=== PATIENT | male | born 1945 | race Caucasian/White ===

== ENCOUNTER 2024-01-16 21:26 | Inpatient (IN) | payer OTHER, MEDICARE ==
[2024-01-16] MEDS: HEPARIN SOD,PORK IN 0.45% NACL 25,000 UNIT in 0.45% NACL 1 250ML.BAG IV SCH (21:53)
--- NOTE | 2024-01-16 21:54 | ED ---
General Adult HPI - General Stated complaint: NSTEMI Time Seen by Provider: 01/16/24 21:31 Source: patient (21), EMS, RN notes reviewed, old records reviewed Mode of arrival: EMS - History of Present Illness Initial comments: Patient is a 78-year-old male who presents emergency department as a transfer from [facility]. Patient has a past medical history remarkable for pulmonary embolism, chronic degenerative disc disease with multiple spinal surgeries in his back, chronic pain. Scented to [facility] earlier this afternoon with difficult sounding chest pain. Radiated from the central and left side of his chest towards his jaw and left arm. Patient denied any naus ea or vomiting or diaphoresis at time of severe chest pain earlier today. Patient has been off of his blood thinning medication, Eliquis for 1 day as patient is due to have spine surgery on Thursday. States that pain started slowly and then got worse. Was concerned he was having a heart attack and presents for further evaluation. At the outside facility remarkable for NSTEMI with normal EKG and appearance as well as elevated troponin. Pain was controlled with nitroglycerin at the outside facility. He was started on a heparin drip and given aspirin 324 mg. Patient was transferred here for cardiology evaluation. Currently states he has minimal chest pain if any other 1 out of 10. He admi nistered an additional nitroglycerin tablet. Heparin will be continued. We will repeat labs and EKG. He was in agreement this plan.CT imaging obtained at the outside facility for PE was also negative. - Related Data Allergies Allergy/AdvReac Type Severity Reaction Status Date / Time morphine Allergy Unknown Verified 01/16/24 21:44 Review of Systems ROS Statement: Those systems with pertinent positive or pertinent negative responses have been documented in the HPI. Review of Systems: CONST: Denies fever EYES: Denies blurry vision ENT: Denies nasal congestion C/V: Endorses minimal chest pain at this time. RESP: Denies shortness of breath GI: Denies abdominal pain : Denies dysuria SKIN: Denies rash. MSK: Denies joint pain. NEURO: Denies headache ROS Other: All systems not noted in ROS Statement are negative. Past Medical History Past Medical History: Chest Pain / Angina, Heart Failure, Osteoarthritis (OA) History of Any Multi-Drug Resistant Organisms: None Reported Past Surgical History: Joint Replacement, Orthopedic Surgery Past Psychological History: No Psychological Hx Reported Smoking Status: Former smoker Past Alcohol Use History: None Reported Past Drug Use History: None Reported General Exam - General Exam Comments Initial Comments: General: Appears in no acute distress. HEAD: Normal with no signs of head trauma. EYES: PERRLA, EOMI, conjunctiva normal, no discharge. ENT: Hearing grossly intact, normal oropharynx. RESPIRATORY: Clear breath sounds bilaterally. No wheezes, rales, or rhonchi. C/V: Regular rate and rhythm. S1 and S2 auscultated, no edema, peripheral pulses 2+ and intact throughout ABD: Abd is soft, nontender, nondistended EXT: Normal range of motion, no obvious deformity.Enlarged hand joints with suspected history of rheumatoid arthritis for which she is receiving workup in the outpatient setting. This is chronic for the patient. SKIN: No rashes or lesions observed on exposed skin. NEURO: Alert and oriented x 4. Cranial nerves II-XII intact. No focal sensory or strength deficits. Course Vital Signs 01/16/24 01/16/24 21:35 21:50 Temperature 97.7 F Pulse Rate 64 63 Respiratory 18 18 Rate Blood Pressure 156/106 147/95 O2 Sat by Pulse 100 99 Oximetry Medical Decision Making - Medical Decision Making Was pt. sent in by a medical professional or institution (, PA, COLOR ARTIST, urgent care, hospital, or [facility]cc...) When possible be specific @ -Patient transferred from [place] for evaluation by cardiology for NSTEMI Did you speak to anyone other than the patient for history (EMS, parent, family, police, friend...)? What history was obtained from this source @ -No Did you review nursing and triage notes (agree or disagree)? Why? @ -I reviewed and agree with nursing and triage notes Were old charts reviewed (outside hosp., previous admission, EMS record, old EKG , old radiological studies, urgent care reports/EKG's, mcc records)? Report findings @ -Old charts reviewed Differential Diagnosis (chest pain, altered mental status, abdominal pain women, abdominal pain men, vaginal bleeding, weakness, fever, dyspnea, syncope, headache, dizziness, GI bleed, back pain, seizure, CVA, palpatations, mental health, musculoskeletal)? @ -Differential Chest Pain: Stable Angina, Unstable Angina, STEMI, NSTEMI Aortic Dissection, Pneumothorax, Musculoskeletal, Esophageal Spasm GERD, Cholecystitis, Pancreatitis, Zoster, this is not meant to be an all-inclusive list. EKG interpreted by me (3pts min.). @ -As above X-rays interpreted by me (1pt min.). @ -None done CT interpreted by me (1pt min.). @ -None done U/S interpreted by me (1pt. min.). @ -None done What testing was considered but not performed or refused? (CT, X-rays, U/S, labs)? Why? @ -None What meds were considered but not given or refused? Why? @ -None Did you discuss the management of the patient with other professionals (professionals i.e. Dr., PA, COLOR ARTIST, lab, RT, psych nurse, mental health social worker, wallpaper printer helper, teacher, tactical debriefer officer, telephonic case manager)? Give summary @ - I spoke with Dr. Hickman of [facility] who accepted the admission. Was smoking cessation discussed for >3mins.? @ -No Was critical care preformed (if so, how long)? @ -Yes, 35 minutes. Were there social determinants of health that impacted care today? How? (Homelessness, low income, unemployed, alcoholism, drug addiction, transportation, low edu. Level, literacy, decrease access to med. care, fpc, rehab)? @ -No Was there de-escalation of care discussed even if they declined (Discuss DNR or withdrawal of care, Hospice)? DNR status @ -No What co-morbidities impacted this encounter? (DM, HTN, Smoking, COPD, CAD, Cancer, CVA, ARF, Chemo, Hep., AIDS, mental health diagnosis, sleep apnea, morbid obesity)? @ -Hypertension, history of PE currently holding anticoagulation Was patient admitted / discharged? Hospital course, mention meds given and route, prescriptions, significant lab abnormalities, going to OR and other pertinent info. @ -Based on the patient's presentation and physical exam, presents with typical sounding chest pain earlier today and was transferred from [facility] after being diagnosed with a NSTEMI. Pain has more or less resolved at this time with it being currently 1 out of 10 upon arrival to our ER. States it was completely gone prior to arrival. Patient will be administered a nitroglycerin tablet and we will continue with heparin drip. He already received 324 mg of aspirin. Will repeat laboratory studies at this time as well. CT imaging done at the outside facility negative for any evidence of PE. Laboratory studies reviewed from outside facility unremarkable for elevated troponin. Patient was in agreement this plan. EKG done here negative for any obvious acute ischemic process.CT imaging and imaging uploaded from outside hospital. Patient's laboratory studies remarkable for mild anemia with a hemoglobin of 1.8. Patient's troponin is 0.31. Unknown which assay values at [place]. Will continue to trend the troponins while he is here. On reevaluation, patient remains pain-free. Nitropaste applied. Continuing heparin drip at this time. Vital signs within acceptable limits. Patient will be admitted at this time for a NSTEMI. He and his family were in agreement this plan. I confirmed patient's home medications as pharmacy is left and then for the patient. He was in agreement this plan. Cardiology consulted. I spoke with Dr. Hickman of [facility] who accepted the admission. Undiagnosed new problem with uncertain prognosis? @ -No Drug Therapy requiring intensive monitoring for toxicity (Heparin, Nitro, In sulin, Cardizem)? @ -Heparin Were any procedures done? @ -No Diagnosis/symptom? @ -NSTEMI Acute, or Chronic, or Acute on Chronic? @ -Acute Uncomplicated (without systemic symptoms) or Complicated (systemic symptoms)? @ -Complicated Side effects of treatment? @ -No Exacerbation, Progression, or Severe Exacerbation? @ -No Poses a threat to life or bodily function? How? (Chest pain, [place], [place], pneumonia, PE, COPD, DKA, ARF, appy, cholecystitis, CVA, Diverticulitis, Homicidal, Suicidal, threat to staff... and all critical care pts) @ -Yes - Lab Data Result diagrams: 01/16/24 21:45 01/16/24 21:45 Lab Results 01/16/24 01/16/24 01/16/24 Range/Units 21:45 21:45 21:45 WBC 4.7 (3.8-10.6) k/uL RBC 3.77 L (4.30-5.90) m/uL Hgb 11.8 L (13.0-17.5) gm/dL Hct 37.1 L (39.0-53.0) % MCV 98.5 (80.0-100.0) fL MCH 31.3 (25.0-35.0) pg MCHC 31.8 (31.0-37.0) g/dL RDW 15.4 (11.5-15.5) % Plt Count 214 (150-450) k/uL MPV 7.3 Neutrophils % 39 % Lymphocytes % 43 % Monocytes % 10 % Eosinophils % 4 % Basophils % 1 % Neutrophils # 1.8 (1.3-7.7) k/uL Lymphocytes # 2.0 (1.0-4.8) k/uL Monocytes # 0.5 (0-1.0) k/uL Eosinophils # 0.2 (0-0.7) k/uL Basophils # 0.0 (0-0.2) k/uL Macrocytosis Slight PT 10.6 (10.0-12.5) sec INR 1.0 (<1.2) APTT 61.8 H (22.0-30.0) sec Sodium 139 (137-145) mmol/L Potassium 4.5 (3.5-5.1) mmol/L Chloride 108 H (98-107) mmol/L Carbon Dioxide 26 (22-30) mmol/L Anion Gap 5 mmol/L BUN 15 (9-20) mg/dL Creatinine 0.66 (0.66-1.25) mg/dL Est GFR (CKD-EPI)AfAm >90 (>60 ml/min/1.73 sqM) Est GFR (CKD-EPI)NonAf >90 (>60 ml/min/1.73 sqM) Glucose 107 H (74-99) mg/dL Calcium 9.0 (8.4-10.2) mg/dL Magnesium 2.1 (1.6-2.3) mg/dL Total Bilirubin 0.2 (0.2-1.3) mg/dL AST 28 (17-59) U/L ALT 15 (4-49) U/L Alkaline Phosphatase 137 H (38-126) U/L Troponin I (0.000-0.034) ng/mL Total Protein 6.1 L (6.3-8.2) g/dL Albumin 3.5 (3.5-5.0) g/dL 01/16/24 Range/Units 21:45 WBC (3.8-10.6) k/uL RBC (4.30-5.90) m/uL Hgb (13.0-17.5) gm/dL Hct (39.0-53.0) % MCV (80.0-100.0) fL MCH (25.0-35.0) pg MCHC (31.0-37.0) g/dL RDW (11.5-15.5) % Plt Count (150-450) k/uL MPV Neutrophils % % Lymphocytes % % Monocytes % % Eosinophils % % Basophils % % Neutrophils # (1.3-7.7) k/uL Lymphocytes # (1.0-4.8) k/uL Monocytes # (0-1.0) k/uL Eosinophils # (0-0.7) k/uL Basophils # (0-0.2) k/uL Macrocytosis PT (10.0-12.5) sec INR (<1.2) APTT (22.0-30.0) sec Sodium (137-145) mmol/L Potassium (3.5-5.1) mmol/L Chloride (98-107) mmol/L Carbon Dioxide (22-30) mmol/L Anion Gap mmol/L BUN (9-20) mg/dL Creatinine (0.66-1.25) mg/dL Est GFR (CKD-EPI)AfAm (>60 ml/min/1.73 sqM) Est GFR (CKD-EPI)NonAf (>60 ml/min/1.73 sqM) Glucose (74-99) mg/dL Calcium (8.4-10.2) mg/dL Magnesium (1.6-2.3) mg/dL Total Bilirubin (0.2-1.3) mg/dL AST (17-59) U/L ALT (4-49) U/L Alkaline Phosphatase (38-126) U/L Troponin I 0.310 H* (0.000-0.034) ng/mL Total Protein (6.3-8.2) g/dL Albumin (3.5-5.0) g/dL - EKG Data -: EKG Interpreted by Me EKG Comments: 12-lead Electrocardiogram Interpretation Note EKG was reviewed and interpreted by myself. 12-lead ECG performed at 2130 is interpreted by me as revealing normal sinus rhythm with first-degree AV block and incomplete right bundle branch block at a rate of 62 beats per minute. Oneill is normal. SD interval is 228 ms, QRS duration is 110 ms, QTc is 445 ms.. There were no obvious acute ST or T wave abnormalities to suggest myocardial ischemia or injury. R wave progression across the precordium was satisfactory. By my interpretation this EKG is non-diagnostic for acute ischemia. Disposition Clinical Impression: Acute non-ST elevation myocardial infarction (NSTEMI) Disposition: ADMITTED IP TO THIS HOSP Condition: Serious Time of Disposition: 23:05
[2024-01-16] MEDS: NITROGLYCERIN SL TABS 0.4 MG TAB SUBLINGUAL STA (21:55)
[2024-01-16 22:01] LABS: Basophils % (A) 1 %; Eosinophils # (A) 0.2 k/uL (0-0.7); Eosinophils % (A) 4 %; HCT 37.1 % (39.0-53.0); HGB 11.8 gm/dL (13.0-17.5); Lymphocytes % (A) 43 %; MCH 31.3 pg (25.0-35.0); MCHC 31.8 g/dL (31.0-37.0); MCV 98.5 fL (80.0-100.0); Macrocytosis Slight; Mean Platelet Volume 7.3; Monocytes # (A) 0.5 k/uL (0-1.0); Monocytes % (A) 10 %; Neutrophils # (A) 1.8 k/uL (1.3-7.7); Neutrophils % (A) 39 %; Platelet Count 214 k/uL (150-450); RBC 3.77 m/uL (4.30-5.90); RDW 15.4 % (11.5-15.5); WBC 4.7 k/uL (3.8-10.6)
[2024-01-16 22:23] LABS: Prothrombin Time 10.6 sec (10.0-12.5)
[2024-01-16 22:25] LABS: ALT 15 U/L (4-49); AST 28 U/L (17-59); African American GFR (CKD) >90 (>60 ml/min/1.73 sqM); Albumin 3.5 g/dL (3.5-5.0); Alkaline Phosphatase 137 U/L (38-126); Anion Gap 5 mmol/L; Blood Urea Nitrogen 15 mg/dL (9-20); Carbon Dioxide 26 mmol/L (22-30); Chloride 108 mmol/L (98-107); Glucose 107 mg/dL (74-99); Magnesium 2.1 mg/dL (1.6-2.3); Non-African American GFR(CKD) >90 (>60 ml/min/1.73 sqM); Potassium 4.5 mmol/L (3.5-5.1); Sodium 139 mmol/L (137-145); Total Bilirubin 0.2 mg/dL (0.2-1.3); Total Protein 6.1 g/dL (6.3-8.2)
[2024-01-16 22:30] LABS: Partial Thromboplastin Time 61.8 sec (22.0-30.0)
[2024-01-16] MEDS: HYDROcodone/APAP 10-325MG 1 EACH TAB PO ONE (22:31)
[2024-01-16] MEDS ORDERED: ONDANSETRON 4 MG/2 ML VIAL IVP PRN (23:15)
[2024-01-16] MEDS ORDERED: NALOXONE 0.4 MG/ML 1 ML VIAL IV PRN (23:15)
[2024-01-16] MEDS: NITROGLYCERIN OINT 1 INCH/GM PACKET TOPICAL SCH (23:29)
[2024-01-16] MEDS: ATORVASTATIN 20 MG TAB PO SCH (23:30)
--- NOTE | 2024-01-16 23:58 | ED ---
Medical Decision Making - Lab Data Result diagrams: 01/16/24 21:45 01/16/24 21:45 Lab Results 01/16/24 01/16/24 01/16/24 Range/Units 21:45 21:45 21:45 WBC 4.7 (3.8-10.6) k/uL RBC 3.77 L (4.30-5.90) m/uL Hgb 11.8 L (13.0-17.5) gm/dL Hct 37.1 L (39.0-53.0) % MCV 98.5 (80.0-100.0) fL MCH 31.3 (25.0-35.0) pg MCHC 31.8 (31.0-37.0) g/dL RDW 15.4 (11.5-15.5) % Plt Count 214 (150-450) k/uL MPV 7.3 Neutrophils % 39 % Lymphocytes % 43 % Monocytes % 10 % Eosinophils % 4 % Basophils % 1 % Neutrophils # 1.8 (1.3-7.7) k/uL Lymphocytes # 2.0 (1.0-4.8) k/uL Monocytes # 0.5 (0-1.0) k/uL Eosinophils # 0.2 (0-0.7) k/uL Basophils # 0.0 (0-0.2) k/uL Macrocytosis Slight PT 10.6 (10.0-12.5) sec INR 1.0 (<1.2) APTT 61.8 H (22.0-30.0) sec Sodium 139 (137-145) mmol/L Potassium 4.5 (3.5-5.1) mmol/L Chloride 108 H (98-107) mmol/L Carbon Dioxide 26 (22-30) mmol/L Anion Gap 5 mmol/L BUN 15 (9-20) mg/dL Creatinine 0.66 (0.66-1.25) mg/dL Est GFR (CKD-EPI)AfAm >90 (>60 ml/min/1.73 sqM) Est GFR (CKD-EPI)NonAf >90 (>60 ml/min/1.73 sqM) Glucose 107 H (74-99) mg/dL Calcium 9.0 (8.4-10.2) mg/dL Magnesium 2.1 (1.6-2.3) mg/dL Total Bilirubin 0.2 (0.2-1.3) mg/dL AST 28 (17-59) U/L ALT 15 (4-49) U/L Alkaline Phosphatase 137 H (38-126) U/L Troponin I (0.000-0.034) ng/mL Total Protein 6.1 L (6.3-8.2) g/dL Albumin 3.5 (3.5-5.0) g/dL 01/16/24 Range/Units 21:45 WBC (3.8-10.6) k/uL RBC (4.30-5.90) m/uL Hgb (13.0-17.5) gm/dL Hct (39.0-53.0) % MCV (80.0-100.0) fL MCH (25.0-35.0) pg MCHC (31.0-37.0) g/dL RDW (11.5-15.5) % Plt Count (150-450) k/uL MPV Neutrophils % % Lymphocytes % % Monocytes % % Eosinophils % % Basophils % % Neutrophils # (1.3-7.7) k/uL Lymphocytes # (1.0-4.8) k/uL Monocytes # (0-1.0) k/uL Eosinophils # (0-0.7) k/uL Basophils # (0-0.2) k/uL Macrocytosis PT (10.0-12.5) sec INR (<1.2) APTT (22.0-30.0) sec Sodium (137-145) mmol/L Potassium (3.5-5.1) mmol/L Chloride (98-107) mmol/L Carbon Dioxide (22-30) mmol/L Anion Gap mmol/L BUN (9-20) mg/dL Creatinine (0.66-1.25) mg/dL Est GFR (CKD-EPI)AfAm (>60 ml/min/1.73 sqM) Est GFR (CKD-EPI)NonAf (>60 ml/min/1.73 sqM) Glucose (74-99) mg/dL Calcium (8.4-10.2) mg/dL Magnesium (1.6-2.3) mg/dL Total Bilirubin (0.2-1.3) mg/dL AST (17-59) U/L ALT (4-49) U/L Alkaline Phosphatase (38-126) U/L Troponin I 0.310 H* (0.000-0.034) ng/mL Total Protein (6.3-8.2) g/dL Albumin (3.5-5.0) g/dL Critical Care Time Critical Care Time: Yes Total Critical Care Time: 35 Disposition Clinical Impression: Acute non-ST elevation myocardial infarction (NSTEMI) Disposition: ADMITTED IP TO THIS HOSP Condition: Serious
[2024-01-17] MEDS: AMITRIPTYLINE HCL 25 MG TAB PO SCH ×2 (01:09→11:25)
[2024-01-17 03:32] LABS: Basophils % (A) 1 %; Eosinophils # (A) 0.2 k/uL (0-0.7); Eosinophils % (A) 4 %; HCT 37.4 % (39.0-53.0); HGB 11.8 gm/dL (13.0-17.5); Hypochromasia Slight; Lymphocytes # (A) 1.8 k/uL (1.0-4.8); Lymphocytes % (A) 39 %; MCH 31.3 pg (25.0-35.0); MCHC 31.6 g/dL (31.0-37.0); MCV 98.9 fL (80.0-100.0); Macrocytosis Slight; Mean Platelet Volume 7.9; Monocytes # (A) 0.5 k/uL (0-1.0); Monocytes % (A) 10 %; Neutrophils # (A) 2.1 k/uL (1.3-7.7); Neutrophils % (A) 43 %; Platelet Count 200 k/uL (150-450); RBC 3.78 m/uL (4.30-5.90); RDW 15.5 % (11.5-15.5); WBC 4.8 k/uL (3.8-10.6)
[2024-01-17 03:43] LABS: Prothrombin Time 10.5 sec (10.0-12.5)
[2024-01-17 03:53] LABS: ALT 15 U/L (4-49); AST 24 U/L (17-59); African American GFR (CKD) >90 (>60 ml/min/1.73 sqM); Albumin 3.6 g/dL (3.5-5.0); Alkaline Phosphatase 120 U/L (38-126); Anion Gap 7 mmol/L; Blood Urea Nitrogen 13 mg/dL (9-20); Calcium 8.9 mg/dL (8.4-10.2); Carbon Dioxide 25 mmol/L (22-30); Chloride 107 mmol/L (98-107); Glucose 103 mg/dL (74-99); Non-African American GFR(CKD) >90 (>60 ml/min/1.73 sqM); Potassium 4.4 mmol/L (3.5-5.1); Sodium 139 mmol/L (137-145); Total Bilirubin 0.3 mg/dL (0.2-1.3); Total Protein 6.1 g/dL (6.3-8.2)
--- NOTE | 2024-01-17 03:55 | P.HPIM ---
History of Present Illness H&P Date: 01/16/24 Chief Complaint: chest pain 78-year-old male with chronic low back pain history of PE Patient was transferred to our facility from [facility] where he presented complaining of left-sided chest pain he reports that he was at his baseline status of health resting breathing woke with scaly he had an episode of chest pain squeezing/pressure in nature 8 out of 10 in severity which he adds that he had 1 earlier lasted only 10 to 15 minutes however this time this 1 lasted for over an hour was associated with pain radiating to his left arm and left jaw making him feeling nauseated and short of breath with palpitations denies any vomiting denies any dizziness or lightheadedness denies any cardiac history for which she decided to go to the hospital for evaluation by 2 improved chest pain however he was told that he needs to go to be transferred to a different hospital for cardiology evaluation. Patient denies any injuries trauma or falls. Denies any coughing or upper respiratory infection symptoms. Patient denies any smoking illicit drugs or heavy alcohol Patient does have history of PE and supposed to be on Eliquis however he stopped it a day or 2 ago for anticipated low back procedure for the nerve block Patient denies any recent travel or hospital stay denies any unusual activity recently. He denies any falls at home review of systems Pertinent positives as noted in HPI. All other systems were reviewed and are negative on exam Constitutional: No acute distress, conversant, pleasant Eyes: Anicteric sclerae, moist conjunctiva, Pupils equal round reactive to light ENMT: NC/AT Oropharynx clear, no erythema, or exudates Neck: Supple, no masses, or JVD No carotid bruits No thyromegaly Lungs: Clear to auscultation Clear to percussion Normal respiratory effort, no accessory muscle use Cardiovascular: Heart regular in rate and rhythm, No murmurs, gallops, or rubs No peripheral edema Abdominal: Soft Nontender, no guarding, rebound or rigidity Abdomen moving with respiration Normoactive bowel sounds Extremities: No digital cyanosis No clubbing Pedal pulses intact and symmetrical Radial pulses intact and symmetrical No calf tenderness Psychiatric: Alert and oriented to person, place and time Appropriate affect fair judgement Neuro Muscles Strength 5/5 in all 4 extremities Sensation to light touch grossly present throughout Cranial nerves II-XII grossly intact Past Medical History Past Medical History: Chest Pain / Angina, Heart Failure, Osteoarthritis (OA) History of Any Multi-Drug Resistant Organisms: None Reported Past Surgical History: Joint Replacement, Orthopedic Surgery Past Psychological History: No Psychological Hx Reported Smoking Status: Former smoker Past Alcohol Use History: None Reported Past Drug Use History: None Reported Medications and Allergies Allergies Allergy/AdvReac Type Severity Reaction Status Date / Time morphine Allergy Unknown Verified 01/16/24 21:44 Physical Exam Vitals: Vital Signs Temp Pulse Resp BP Pulse Ox 01/17/24 02:00 74 18 127/84 95 01/16/24 23:00 64 18 121/77 97 01/16/24 22:30 70 18 113/88 95 01/16/24 21:50 63 18 147/95 99 01/16/24 21:35 97.7 F 64 18 156/106 100 Intake and Output 01/16/24 01/16/24 01/17/24 14:59 22:59 06:59 Other: Weight 83.915 kg Results CBC & Chem 7: 01/17/24 03:18 01/16/24 21:45 Labs: Abnormal Lab Results - Last 24 Hours (Table) 01/16/24 01/16/24 01/16/24 Range/Units 21:45 21:45 21:45 RBC 3.77 L (4.30-5.90) m/uL Hgb 11.8 L (13.0-17.5) gm/dL Hct 37.1 L (39.0-53.0) % APTT 61.8 H (22.0-30.0) sec Chloride 108 H (98-107) mmol/L Glucose 107 H (74-99) mg/dL Alkaline Phosphatase 137 H (38-126) U/L Troponin I (0.000-0.034) ng/mL Total Protein 6.1 L (6.3-8.2) g/dL 01/16/24 01/17/24 01/17/24 Range/Units 21:45 00:55 03:18 RBC (4.30-5.90) m/uL Hgb (13.0-17.5) gm/dL Hct (39.0-53.0) % APTT 48.0 H (22.0-30.0) sec Chloride (98-107) mmol/L Glucose (74-99) mg/dL Alkaline Phosphatase (38-126) U/L Troponin I 0.310 H* 0.440 H* (0.000-0.034) ng/mL Total Protein (6.3-8.2) g/dL 01/17/24 Range/Units 03:18 RBC 3.78 L (4.30-5.90) m/uL Hgb 11.8 L (13.0-17.5) gm/dL Hct 37.4 L (39.0-53.0) % APTT (22.0-30.0) sec Chloride (98-107) mmol/L Glucose (74-99) mg/dL Alkaline Phosphatase (38-126) U/L Troponin I (0.000-0.034) ng/mL Total Protein (6.3-8.2) g/dL Assessment and Plan Assessment: 78-year-old male with chronic low back pain coming in complaining of palpitations and left-sided chest pain he was found to have elevated troponins for which she was transferred to our facility for further cardiology evaluation discussed case with ED doctor and accepted the admission for NSTEMI to rule out acute coronary syndrome with anticipated length of stay more than 2 midnights NSTEMI rule out acute coronary syndrome Continue with aspirin daily Continue statin daily Cardiac monitoring Cardiology eval requested Morphine as needed for pain control Supplemental oxygen Nitro as needed Elevated troponin 0.3, continue to trend Chronic condition history of venous thromboembolism Currently Eliquis on hold for anticipated nerve procedure on Thursday Blood work overall unremarkable white count 4.7 hemoglobin 11.8 sodium 139 potassium 4.5 BUN 15 creatinine 0.6 Troponin 0.3 Verify home meds Full code DVT prophylaxis on heparin drip for NSTEMI
[2024-01-17] MEDS: HYDROcodone/APAP 10-325MG 1 EACH TAB PO PRN (05:56)
--- NOTE | 2024-01-17 09:34 | P.CRDCN ---
History of Present Illness Consult date: 01/17/24 Chief complaint: Chest pain History of present illness: The patient is a pleasant 78-year-old gentleman with a past medical history significant for history of pulmonary embolism he was receiving oral anticoagulation with Eliquis as well as hypertension and dyslipidemia presented to the emergency room initially at [facility] complaining of chest discomfort and then he was transferred here. He was in his usual state of health till yesterday when he was sitting reading a book and suddenly started experiencing discomfort in the middle of the chest as a burning sensation radiating to his jaw with no associated symptoms of shortness of breath or sweating or dizziness or lightheadedness or any feeling of heart racing or fluttering or any presyncope or syncope. He presented initially to [facility] where he underwent further investigation including CTA of the chest which showed no evidence of pulmonary embolism. He was off oral anticoagulation to undergo an injection in the back on Thursday. The CTA showed no evidence of pulmonary embolism. He underwent further investigation including an EKG which showed sinus mechanism with ST changes anteriorly with troponin came in to be mildly abnormal and definitely concerning for acute coronary syndrome but the chest x-ray did not show any acute abnormalities. Blood work including hemoglobin came in to be unremarkable and also kidney function came in to be unremarkable and electrolytes came in to be normal as well. Currently his chest pain-free but he is on heparin IV. Examination revealed regular rhythm with a systolic murmur at the right upper sternal border with clear breathing sounds bilaterally and no edema was noted. Assessment Acute coronary syndrome with acute non-ST elevation myocardial infarction History of pulmonary embolism. The patient was not receiving oral anticoagulation for the last 48 hours. CTA of the chest showed no evidence of PE Multiple comorbid conditions including hypertension and dyslipidemia Plan Continue the current medical regimen including the current dose of heparin IV Anti-ischemic medication including beta-richard as well as aspirin and statin Obtain an echocardiogram with Doppler Proceed with coronary angiogram Past Medical History Past Medical History: Chest Pain / Angina, Hearing Disorder / Deafness, Hyperlipidemia, Osteoarthritis (OA), Pulmonary Embolus (PE) Additional Past Medical History / Comment(s): Patient states was never told he had heart failure. At 42 was at [facility] and was told his spine was that of a 89 year old. Unknown cause History of Any Multi-Drug Resistant Organisms: None Reported Past Surgical History: Back Surgery, Joint Replacement, Orthopedic Surgery Additional Past Surgical History / Comment(s): Left knee. 8 Back surgeries and Cage fusion L3 or L5. Cataracts Past Anesthesia/Blood Transfusion Reactions: No Reported Reaction Smoking Status: Former smoker Medications and Allergies Home Medications Medication Instructions Recorded Confirmed Type Amitriptyline HCl [Elavil] 25 mg PO DAILY 01/17/24 01/17/24 History Amitriptyline HCl [Elavil] 75 mg PO HS 01/17/24 01/17/24 History Apixaban [Eliquis] 2.5 mg PO BID 01/17/24 01/17/24 History Cholecalciferol [Vitamin D3 (125 125 mcg PO DAILY 01/17/24 01/17/24 History Mcg = 5000 Iu)] Docusate Sodium 250 mg PO TID 01/17/24 01/17/24 History HYDROcodone/APAP 10-325MG [Jarrell 1 tab PO Q6HR PRN 01/17/24 01/17/24 History 10-325] Lovastatin [Mevacor] 20 mg PO DAILY 01/17/24 01/17/24 History Multivitamins, Thera [Multivitamin 1 tab PO DAILY 01/17/24 01/17/24 History (formulary)] Omeprazole 20 mg PO DAILY 01/17/24 01/17/24 History PARoxetine HCL [Paxil] 10 mg PO DAILY 01/17/24 01/17/24 History Allergies Allergy/AdvReac Type Severity Reaction Status Date / Time morphine Allergy Unknown Verified 01/16/24 21:44 Physical Exam Vitals: Vital Signs Temp Pulse Pulse Resp BP Pulse Ox 01/17/24 07:24 93 93 18 144/93 97 01/17/24 06:00 77 18 144/93 97 01/17/24 04:00 88 18 129/98 98 01/17/24 02:00 74 18 127/84 95 01/16/24 23:00 64 18 121/77 97 01/16/24 22:30 70 18 113/88 95 01/16/24 21:50 63 18 147/95 99 01/16/24 21:35 97.7 F 64 18 156/106 100 Intake and Output 01/16/24 01/17/24 01/17/24 22:59 06:59 14:59 Other: Weight 83.915 kg 83.915 kg Results 01/17/24 03:18 01/17/24 03:18 Cardiac Enzymes 01/16/24 01/16/24 01/17/24 Range/Units 21:45 21:45 00:55 AST 28 (17-59) U/L Troponin I 0.310 H* 0.440 H* (0.000-0.034) ng/mL 01/17/24 01/17/24 Range/Units 03:18 03:18 AST 24 (17-59) U/L Troponin I 0.500 H* (0.000-0.034) ng/mL Coagulation 01/16/24 01/17/24 01/17/24 Range/Units 21:45 03:18 07:15 PT 10.6 10.5 (10.0-12.5) sec APTT 61.8 H 48.0 H 43.7 H (22.0-30.0) sec CBC 01/16/24 01/17/24 Range/Units 21:45 03:18 WBC 4.7 4.8 (3.8-10.6) k/uL RBC 3.77 L 3.78 L (4.30-5.90) m/uL Hgb 11.8 L 11.8 L (13.0-17.5) gm/dL Hct 37.1 L 37.4 L (39.0-53.0) % Plt Count 214 200 (150-450) k/uL Comprehensive Metabolic Panel 01/16/24 01/17/24 Range/Units 21:45 03:18 Sodium 139 139 (137-145) mmol/L Potassium 4.5 4.4 (3.5-5.1) mmol/L Chloride 108 H 107 (98-107) mmol/L Carbon Dioxide 26 25 (22-30) mmol/L BUN 15 13 (9-20) mg/dL Creatinine 0.66 0.63 L (0.66-1.25) mg/dL Glucose 107 H 103 H (74-99) mg/dL Calcium 9.0 8.9 (8.4-10.2) mg/dL AST 28 24 (17-59) U/L ALT 15 15 (4-49) U/L Alkaline Phosphatase 137 H 120 (38-126) U/L Total Protein 6.1 L 6.1 L (6.3-8.2) g/dL Albumin 3.5 3.6 (3.5-5.0) g/dL Current Medications Generic Name Dose Route Start Last Admin Trade Name Freq PRN Reason Stop Dose Admin Hydrocodone Bitart/Acetaminophen 1 each 01/16/24 22:47 01/17/24 05:56 Hydrocodone/Apap 10-325mg 1 Each Tab PO 1 each Q6HR PRN Administration Pain Amitriptyline HCl 75 mg 01/16/24 23:00 01/17/24 01:09 Amitriptyline Hcl 25 Mg Tab PO 75 mg HS SUSAN Administration Amitriptyline HCl 25 mg 01/17/24 09:00 Amitriptyline Hcl 25 Mg Tab PO DAILY SUSAN Aspirin 81 mg 01/17/24 09:00 Aspirin 81 Mg PO DAILY [facility] Atorvastatin Calcium 20 mg 01/16/24 23:00 01/16/24 23:30 Atorvastatin 20 Mg Tab PO 20 mg HS SUSAN Administration Duloxetine HCl 30 mg 01/17/24 09:00 Duloxetine Hcl 30 Mg Capsule.Dr PO DAILY [facility] Heparin Sodium (Porcine) 0 unit 01/16/24 21:31 Heparin Sodium 1,000 Un/Ml (10ml Vl) IV PER PROTOCOL PRN Low PTT Protocol Heparin Sodium/Sodium Chloride 250 mls @ 10 mls/hr 01/16/24 21:45 01/16/24 21:53 25,000 unit/ Sodium Chloride IV 11.9168 units/kg/hr .Q24H SUSAN 10 mls/hr Administration Protocol 11.9168 UNITS/KG/HR Metoprolol Succinate 50 mg 01/17/24 21:00 Metoprolol Succinate (Er) 50 Mg Tab.Er.24h PO DAILY [facility] Naloxone HCl 0.2 mg 01/16/24 23:15 Naloxone 0.4 Mg/Ml 1 Ml Vial IV Q2M PRN Opioid Reversal Nitroglycerin 0.5 inch 01/16/24 23:30 01/16/24 23:29 Nitroglycerin Oint 1 Inch/Gm Packet TOPICAL 0.5 inch Q8HR SUSAN Administration Ondansetron HCl 4 mg 01/16/24 23:15 Ondansetron 4 Mg/2 Ml Vial IVP Q8HR PRN Nausea And Vomiting Pantoprazole Sodium 40 mg 01/17/24 07:30 Pantoprazole 40 Mg Tablet PO AC-BRKFST [facility] Paroxetine HCl 20 mg 01/17/24 09:00 Paroxetine 20 Mg Tab PO DAILY SUSAN Intake and Output 01/16/24 01/17/24 01/17/24 22:59 06:59 14:59 Other: Weight 83.915 kg 83.915 kg Patient Weight 01/18/24 06:59 Weight 83.915 kg 01/17/24 03:18 01/17/24 03:18
[2024-01-17] MEDS: DULoxetine HCL 30 MG CAPSULE.DR PO SCH (10:07)
[2024-01-17] MEDS: PARoxetine 20 MG TAB PO SCH (10:07)
[2024-01-17] MEDS: PANTOPRAZOLE 40 MG TABLET PO SCH (10:07)
[2024-01-17] MEDS: ASPIRIN 81 MG PO SCH (10:08)
--- NOTE | 2024-01-17 13:28 | P.PN ---
Subjective Progress Note Date: 01/17/24 Hospital course Patient is a 78-year-old male with a past medical history of chronic low back pain and also pulmonary embolism and rheumatoid arthritis who was transferred from an outside facility for evaluation of his chest pain. In the ED patient was found to have elevated troponins. Patient started on heparin drip. Cardiology plans to do heart catheterization. HPI Patient currently denying chest pain. Physical exam General examination - Alert and Oriented 3 in NAD Heart - + S1S2 no murmurs Lungs - Clear to auscultation Abdomen soft NT ND +ve BS Extremities - No edema [employer] - Moving all 4 extremities spontaneously Psych - Calm and cooperative Assessment and plan Non-ST elevation NE Troponin is increasing and is now at 0.500 Cardiology plans on doing left heart catheterization Nitro as needed for pain Patient on aspirin statin and beta-richard Heparin drip History of pulmonary embolism Patient was holding his Eliquis for epidural injection for his chronic back pain. CTA chest was negative for pulmonary embolism. Patient currently on heparin drip. Will continue to hold Eliquis for now. Rheumatoid arthritis Will resume methotrexate on discharge DVT prophylaxis: Heparin drip Objective - Vital Signs Vital signs: Vital Signs Temp 97.7 F 01/16/24 21:35 Pulse 83 01/17/24 13:00 Resp 18 01/17/24 13:00 BP 125/84 01/17/24 13:00 Pulse Ox 98 01/17/24 13:00 FiO2 Intake & Output 01/16/24 01/17/24 01/17/24 18:59 06:59 18:59 Weight 83.915 kg 83.915 kg - Labs CBC & Chem 7: 01/17/24 03:18 01/17/24 03:18 Labs: Abnormal Lab Results - Last 24 Hours (Table) 01/16/24 01/16/24 01/16/24 Range/Units 21:45 21:45 21:45 RBC 3.77 L (4.30-5.90) m/uL Hgb 11.8 L (13.0-17.5) gm/dL Hct 37.1 L (39.0-53.0) % APTT 61.8 H (22.0-30.0) sec Chloride 108 H (98-107) mmol/L Creatinine (0.66-1.25) mg/dL Glucose 107 H (74-99) mg/dL Alkaline Phosphatase 137 H (38-126) U/L Troponin I (0.000-0.034) ng/mL Total Protein 6.1 L (6.3-8.2) g/dL 01/16/24 01/17/24 01/17/24 Range/Units 21:45 00:55 03:18 RBC (4.30-5.90) m/uL Hgb (13.0-17.5) gm/dL Hct (39.0-53.0) % APTT 48.0 H (22.0-30.0) sec Chloride (98-107) mmol/L Creatinine (0.66-1.25) mg/dL Glucose (74-99) mg/dL Alkaline Phosphatase (38-126) U/L Troponin I 0.310 H* 0.440 H* (0.000-0.034) ng/mL Total Protein (6.3-8.2) g/dL 01/17/24 01/17/24 01/17/24 Range/Units 03:18 03:18 03:18 RBC 3.78 L (4.30-5.90) m/uL Hgb 11.8 L (13.0-17.5) gm/dL Hct 37.4 L (39.0-53.0) % APTT (22.0-30.0) sec Chloride (98-107) mmol/L Creatinine 0.63 L (0.66-1.25) mg/dL Glucose 103 H (74-99) mg/dL Alkaline Phosphatase (38-126) U/L Troponin I 0.500 H* (0.000-0.034) ng/mL Total Protein 6.1 L (6.3-8.2) g/dL 01/17/24 Range/Units 07:15 RBC (4.30-5.90) m/uL Hgb (13.0-17.5) gm/dL Hct (39.0-53.0) % APTT 43.7 H (22.0-30.0) sec Chloride (98-107) mmol/L Creatinine (0.66-1.25) mg/dL Glucose (74-99) mg/dL Alkaline Phosphatase (38-126) U/L Troponin I (0.000-0.034) ng/mL Total Protein (6.3-8.2) g/dL
[2024-01-17] MEDS ORDERED: VERAPAMIL 2.5 MG/ML 2 ML AMP ONE (14:09)
[2024-01-17] MEDS ORDERED: LIDOCAINE 1% INJ 10MG/ML (20 ML MDV) ONE (14:09)
[2024-01-17] MEDS: LIDOCAINE 1% INJ 10MG/ML (20 ML MDV) SQ ONE ×2 (14:35→14:37)
[2024-01-17] MEDS: MIDAZOLAM 2 MG/2 ML VIAL IVP ONE (14:35)
[2024-01-17] MEDS: SODIUM CHLORIDE 0.9% 500 ML 500 ML IV ONE (14:41)
[2024-01-17] MEDS ORDERED: RX INFO: IV CONTRAST WAS GIVEN 1 EACH MISC MISCELLANE PRN (15:07)
--- NOTE | 2024-01-17 15:12 | P.PCN ---
Date of Procedure: 01/17/24 Operative Findings: CARDIAC CATHETERIZATION PERFORMING PHYSICIAN: Sang Leon MD, RPVI PROCEDURE PERFORMED: 1. Selective right and left coronary angiogram 2. Left heart catheterization 3. IFR of the left anterior descending artery 4. Ultrasound-guided access of the right radial artery INDICATION: Acute non-ST elevation myocardial infarction COMPLICATION: None APPROACH: Right radial artery LEVEL OF SEDATION: Moderate with a sedation length of 27 minutes PROCEDURE DESCRIPTION: After obtaining an informed consent, the patient was brought to cardiac chemical lab supervisor. Local anesthesia was performed using lidocaine subcutaneously. The right radial artery was cannulated using Seldinger technique, the guidewire passed easily, following that we advanced a 5-Kyrgyz sheath dilator assembly, the wire and dilator were removed and sheath was flushed. Following that, 2 mg of verapamil along with 5000 unit heparin were given. Selective right and left coronary angiogram using a 6-Kyrgyz JR4 and JL 3.5 catheters. Following that we did left heart catheterization using 6-Kyrgyz pigtail catheter. After that we decided to do Dobler wire measurement of the left anterior descending artery with after zeroing the Doppler wire and equalizing between the Doppler wire and guiding catheter which was JL 3.5 guiding catheter the left main was engaged and subsequently the LAD was wired using the Doppler wire. We did an IFR and that came in to be ischemic at 0.77 The procedure was completed there was no complication. SELECTIVE CORONARY ANGIOGRAM: The right coronary artery: Large caliber vessel and a dominant vessel. The RCA has a tubular lesion in the midportion appears to be in the range of 70 to 80%. Left main: Large-caliber vessel with mild disease only. Bifurcates into the LAD and LCx The left circumflex: Large-caliber vessel and nondominant vessel. The LCx gives rise into first obtuse marginal branch which is a large-caliber vessel with ostial lesion appears to be in the range of 90%. The second obtuse marginal branch appears to have mild to moderate disease only. The left anterior descending artery: Large-caliber vessel. The LAD has a long tubular lesion extends from the proximal to the midportion appears to be in the range of 60% but the lesion was flow-limiting by Doppler wire with IFR of 0.77 HEMODYNAMICS: The LVEDP was about 5 mmHg with no significant gradient across aortic valve CONCLUSION: 1. Severe triple-vessel coronary artery disease as described above 2. Low left-sided filling pressure POSTPROCEDURE MANAGEMENT: Given the above anatomy I advised the patient to be seen by a surgeon for the evaluation of CABG Further recommendation to follow
[2024-01-17] MEDS: IOPAMIDOL-370 100ML BTL INJ ONE (15:16)
--- NOTE | 2024-01-17 15:53 | CA ---
Transthoracic Echo Report Name: Chris Robin Age: 78 Gender: M : 1945 Exam Date: 01/17/2024 10:34 Exam Location: [place] [facility] Ht (in): 70 Wt (lb): 185 Ordering Physician: Tod Covarrubias MD Attending/Referring Phys: Database Admin Audrey Barreto RDCS Procedure CPT: Indications: nstemi Cardiac Hx: Technical Quality: Good Contrast 1: Total Dose (mL): Contrast 2: Total Dose (mL): MEASUREMENTS (Male / Female) Normal Values 2D ECHO LV Diastolic Diameter PLAX 4.9 cm 4.2 - 5.9 / 3.9 - 5.3 cm LV Systolic Diameter PLAX 3.2 cm IVS Diastolic Thickness 0.8 cm 0.6 - 1.0 / 0.6 - 0.9 cm LVPW Diastolic Thickness 0.8 cm 0.6 - 1.0 / 0.6 - 0.9 cm LV Relative Wall Thickness 0.3 RV Internal Dim ED PLAX 3.1 cm LA Systolic Diameter LX 2.9 cm 3.0 - 4.0 / 2.7 - 3.8 cm LV Diastolic Volume MOD 4C 174.8 cm??? LV Systolic Volume MOD 4C 95.3 cm??? LV Ejection Fraction MOD 4C 45.5 % LV Cardiac Index MOD 4C 3453.4 cm???/min???m??? LV Diastolic Length 4C 8.8 cm LV Systolic Length 4C 7.2 cm LV Diastolic Volume MOD 2C 98.9 cm??? LV Systolic Volume MOD 2C 53.9 cm??? LV Ejection Fraction MOD 2C 45.5 % LV Cardiac Index MOD 2C 1955.3 cm???/min???m??? LV Diastolic Length 2C 8.4 cm LV Systolic Length 2C 7.2 cm LA Volume 56.8 cm??? 18 - 58 / 22 - 52 cm??? LA Volume Index 27.7 cm???/m??? 16 - 28 cm???/m??? M-MODE Aortic Root Diameter MM 3.6 cm MV E Point Septal Separation 0.6 cm AV Cusp Separation MM 2.5 cm DOPPLER AV Peak Velocity 114.2 cm/s AV Peak Gradient 5.2 mmHg AI Peak Velocity 231.4 cm/s AI Peak Gradient 21.4 mmHg AI Pressure Half Time 691.0 ms MV Area PHT 3.2 cm??? MR Peak Velocity 479.2 cm/s MR Peak Gradient 91.9 mmHg Mitral E Point Velocity 55.5 cm/s Mitral A Point Velocity 86.1 cm/s Mitral E to A Ratio 0.6 MV Deceleration Time 239.9 ms TR Peak Velocity 235.4 cm/s TR Peak Gradient 22.2 mmHg Right Ventricular Systolic Press 26.9 mmHg FINDINGS Left Ventricle Left ventricular ejection fraction is estimated at 40-45 %. Left ventricular cavity size normal. Left ventricular wall thickness normal. Mildly reduced global left ventricular systolic function. No obvious regional wall motion abnormalities. Sygmoid septum Right Ventricle Normal right ventricular size. Right ventricular systolic pressure within normal limits. Right Atrium Normal right atrial size. Left Atrium Normal left atrial size. Mitral Valve Structurally normal mitral valve. No mitral stenosis. No evidence for mitral valve prolapse. Moderate mitral regurgitation. Aortic Valve Trileaflet aortic valve. Mild aortic regurgitation. No aortic stenosis. Tricuspid Valve Structurally normal tricuspid valve. Mild tricuspid regurgitation. Pulmonic Valve Structurally normal pulmonic valve. Trace to mild pulmonic regurgitation. Pericardium No pericardial effusion. Aorta Normal size aortic root and proximal ascending aorta. Descending aorta aneurysm 40 mm CONCLUSIONS Mildly impaired LV function with EF between 40-45% Moderate mitral regurgitation Previewed by: Dr. Sang Leon MD (Electronically Signed) Final Date: 17 January 2024 15:52
[2024-01-17] MEDS: SODIUM CHLORIDE 0.9% 1,000 ML IV SCH (16:36)
[2024-01-17] MEDS: METOPROLOL SUCCINATE (ER) 50 MG TAB.ER.24H PO SCH (20:46)
[2024-01-17] MEDS ORDERED: NITROGLYCERIN OINT 1 INCH/GM PACKET TOPICAL SCH ×2 (22:20)
[2024-01-18 05:13] LABS: Basophils % (A) 1 %; Eosinophils # (A) 0.2 k/uL (0-0.7); Eosinophils % (A) 4 %; HCT 33.8 % (39.0-53.0); Lymphocytes # (A) 1.6 k/uL (1.0-4.8); Lymphocytes % (A) 38 %; MCH 31.8 pg (25.0-35.0); MCHC 32.5 g/dL (31.0-37.0); MCV 97.9 fL (80.0-100.0); Macrocytosis Slight; Mean Platelet Volume 7.9; Monocytes # (A) 0.3 k/uL (0-1.0); Monocytes % (A) 7 %; Neutrophils % (A) 47 %; Platelet Count 209 k/uL (150-450); RBC 3.45 m/uL (4.30-5.90); RDW 15.7 % (11.5-15.5); WBC 4.3 k/uL (3.8-10.6)
[2024-01-18 05:38] LABS: African American GFR (CKD) >90 (>60 ml/min/1.73 sqM); Anion Gap 3 mmol/L; Blood Urea Nitrogen 11 mg/dL (9-20); Calcium 8.5 mg/dL (8.4-10.2); Carbon Dioxide 27 mmol/L (22-30); Chloride 109 mmol/L (98-107); Glucose 95 mg/dL (74-99); Magnesium 1.9 mg/dL (1.6-2.3); Non-African American GFR(CKD) >90 (>60 ml/min/1.73 sqM); Sodium 139 mmol/L (137-145)
[2024-01-18] MEDS: HEPARIN SODIUM 1,000 UN/ML (10ML VL) IV PRN (06:24)
--- NOTE | 2024-01-18 08:12 | P.GSCN ---
History of Present Illness Consult date: 01/18/24 Reason for Consult: Coronary artery disease, Non-ST elevated myocardial infarction this admission Requesting physician: Sang Leon History of present illness: This is a 78-year-old gentleman who follows on an outpatient basis with the [facility] clinic for his primary care. He has a past medical history significant for a pulmonary embolus 1 year ago status post an INARI procedure and is currently on our request for anticoagulation, hyperlipidemia, depression, rheumatoid arthritis, family history of early onset coronary artery disease on his father's side, GERD,chronic back problems, and remote history of nicotine dependence which he quit smoking 43 years ago. The patient presented to [facility] on 01/16/2024 with complaints of pain to his chest, radiating to his jaw, his back and left arm. Denies any associated nausea or shortness of breath.The patient reports the pain came on acutely while he was watching TV, and went away about 15 minutes later with continued rest and subsequently a episode of chest pain developed around 2 hours later. Due to the episode of chest pain he decided to present to the emergency department for further evaluation and treatment recommendations. He presented to [place] emergency department where he underwent some workup which showed positive troponins and some EKG changes. Patient denies any recent fever, chills, nausea, vomiting, diarrhea, constipation, headache, hemoptysis, hematemesis, shortness of breath, presyncope or syncope. He was subsequently transferred to [facility] for further workup and evaluation. In the emergency d epartment serial troponins were elevated as high as 0.500. Hemoglobin was 11.8, and the patient denies any chronic anemia. On 01/16/2024 the patient underwent a transthoracic 2-D echocardiogram which demonstrated a mildly impaired left ventricular function with an ejection fraction between 40 and 45%, moderate mitral valve regurgitation and a normal size aortic root and proximal ascending aorta. Due to the patient's presenting symptoms and elevated troponins Dr. Mejía from cardiology was consulted and the patient underwent a cardiac catheterization yesterday 01/17/2024. Cardiac catheterization demonstrated a 70- 80% lesion to his right coronary artery, a 90% stenosis to his obtuse marginal b ranch of the circumflex and a 60% stenosis to his LAD with an INR of 0.77. Subsequently, due to the findings on the cardiac catheterization consult was placed to Dr. Camden Gillespie from cardiothoracic surgery for further evaluation and treatment recommendations including myocardial revascularization surgery. Review of Systems A 14 point review of systems was completed and was negative except as mentioned in HPI. Past Medical History Past Medical History: Chest Pain / Angina, GERD/Reflux, Hearing Disorder / Deafness, Hyperlipidemia, Hypertension, Osteoarthritis (OA), Pulmonary Embolus (PE) Additional Past Medical History / Comment(s): Patient states was never told he had heart failure. At 42 was at [facility] and was told his spine was that of a 89 year old. Unknown cause. 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 hx of basal cell carcinoma on left cheek History of Any Multi-Drug Resistant Organisms: None Reported Past Surgical History: Back Surgery, Joint Replacement, Orthopedic Surgery Additional Past Surgical History / Comment(s): Left knee. 8 Back surgeries and Cage fusion L3 or L5. Cataracts Past Anesthesia/Blood Transfusion Reactions: No Reported Reaction Past Psychological History: Depression Smoking Status: Former smoker Past Alcohol Use History: None Reported Past Drug Use History: None Reported - Past Family History Father Family Medical History: Myocardial Infarction (MO) Mother Family Medical History: Hypertension Medications and Allergies Home Medications Medication Instructions Recorded Confirmed Type Amitriptyline HCl [Elavil] 25 mg PO DAILY 01/17/24 01/17/24 History Amitriptyline HCl [Elavil] 75 mg PO HS 01/17/24 01/17/24 History Apixaban [Eliquis] 2.5 mg PO BID 01/17/24 01/17/24 History Cholecalciferol [Vitamin D3 (125 125 mcg PO DAILY 01/17/24 01/17/24 History Mcg = 5000 Iu)] DULoxetine HCL [Cymbalta] 30 mg PO DAILY 01/17/24 01/17/24 History Docusate Sodium 250 mg PO TID 01/17/24 01/17/24 History HYDROcodone/APAP 10-325MG [[place] 1 tab PO Q6HR PRN 01/17/24 01/17/24 History 10-325] Lovastatin [Mevacor] 20 mg PO DAILY 01/17/24 01/17/24 History Metoprolol Succinate (ER) [Toprol 25 mg PO HS 01/17/24 01/17/24 History Xl] Multivitamins, Thera [Multivitamin 1 tab PO DAILY 01/17/24 01/17/24 History (formulary)] Omeprazole 20 mg PO DAILY 01/17/24 01/17/24 History PARoxetine [Paxil] 20 mg PO DAILY 01/17/24 01/17/24 History metHOTREXate sodium 12.5 mg PO MO 01/17/24 01/17/24 History Allergies Allergy/AdvReac Type Severity Reaction Status Date / Time morphine Allergy Unknown Verified 01/16/24 21:44 Surgical - Exam Vital Signs Temp Pulse Resp BP Pulse Ox 97.7 F 64 18 156/106 100 01/16/24 21:35 01/16/24 21:35 01/16/24 21:35 01/16/24 21:35 01/16/24 21:35 - General well developed, well nourished, no distress, no pain, chronically ill - Eyes PERRL, normal ocular movement, no pale, no icteric - ENT normal pinna, normal nares, normal mucosa, no congestion, decreased hearing, dentures - Neck Neck is supple, no lymphadenopathy. no masses, trachea midline, no venous distension carotid bruit: left - Respiratory Respirations are symmetrical and nonlabored, lung sounds essentially clear throughout. No wheezes, rhonchi or crackles. normal expansion - Cardiovascular Regular rhythm and rate. S1 and S2 present, negative for S3 or gallop. Positive systolic murmur 2/6 heard best to the left sternal border. - Abdomen Abdomen is soft, nontender and nondistended. Active bowel sounds present in all 4 abdominal quadrants. No guarding or rigidity. - Genitourinary Deferred - Rectum Deferred - Integumentary Skin is warm and dry. No clubbing or cyanosis is present. no rash, no growths, no abnormal pigmentation - Neurologic No focal deficits. normal coordination, normal sensation - Musculoskeletal Moves all 4 extremities with equal strength bilateral Results - Labs 01/19/24 08:51 01/19/24 08:51 Abnormal Lab Results - Last 24 Hours (Table) 01/17/24 01/17/24 01/18/24 Range/Units 07:15 15:48 04:02 RBC 3.45 L (4.30-5.90) m/uL Hgb 11.0 L (13.0-17.5) gm/dL Hct 33.8 L (39.0-53.0) % RDW 15.7 H (11.5-15.5) % APTT 43.7 H (22.0-30.0) sec D-Dimer 0.77 H (<0.60) mg/L FEU Chloride (98-107) mmol/L Creatinine (0.66-1.25) mg/dL 01/18/24 01/18/24 Range/Units 04:02 04:02 RBC (4.30-5.90) m/uL Hgb (13.0-17.5) gm/dL Hct (39.0-53.0) % RDW (11.5-15.5) % APTT 41.3 H (22.0-30.0) sec D-Dimer (<0.60) mg/L FEU Chloride 109 H (98-107) mmol/L Creatinine 0.62 L (0.66-1.25) mg/dL Diabetes panel 01/18/24 Range/Units 04:02 Sodium 139 (137-145) mmol/L Potassium 4.0 (3.5-5.1) mmol/L Chloride 109 H (98-107) mmol/L Carbon Dioxide 27 (22-30) mmol/L BUN 11 (9-20) mg/dL Creatinine 0.62 L (0.66-1.25) mg/dL Glucose 95 (74-99) mg/dL Calcium 8.5 (8.4-10.2) mg/dL Calcium panel 01/18/24 Range/Units 04:02 Calcium 8.5 (8.4-10.2) mg/dL Pituitary panel 01/18/24 Range/Units 04:02 Sodium 139 (137-145) mmol/L Potassium 4.0 (3.5-5.1) mmol/L Chloride 109 H (98-107) mmol/L Carbon Dioxide 27 (22-30) mmol/L BUN 11 (9-20) mg/dL Creatinine 0.62 L (0.66-1.25) mg/dL Glucose 95 (74-99) mg/dL Calcium 8.5 (8.4-10.2) mg/dL Adrenal panel 01/18/24 Range/Units 04:02 Sodium 139 (137-145) mmol/L Potassium 4.0 (3.5-5.1) mmol/L Chloride 109 H (98-107) mmol/L Carbon Dioxide 27 (22-30) mmol/L BUN 11 (9-20) mg/dL Creatinine 0.62 L (0.66-1.25) mg/dL Glucose 95 (74-99) mg/dL Calcium 8.5 (8.4-10.2) mg/dL - Imaging EKG: image reviewed Assessment and Plan Assessment: Multivessel coronary artery disease Non-ST elevated myocardial infarction this admission History of pulmonary embolus in October 2022 status post INARI procedure, on Eliquis For anticoagulation Hyperlipidemia History of depression Chronic back pain Anemia Rheumatoid arthritis Family history of coronary artery disease on his father's side GERD Remote history of nicotine dependence quit 43 years ago Plan: The patient was seen and examined at his bedside on the third floor cardiac stepdown unit in conjunction with Dr. Gillespie from cardiothoracic surgery. Discharge diagnostics reviewed. The cardiac catheterization films were reviewed with the patient by Dr. Gillespie, treatment options were discussed including myocardial revascularization surgery. Risks and benefits of surgery were discussed. Preoperative testing has been ordered and preoperative teaching has been initiated. Continue to maximize medical management with aspirin, statin and beta richard. Medical management and other comorbidities per primary care service. Once his preoperative testing has been collected and obtained he will be scheduled for myocardial revascularization surgery this admission. Once his preoperative testing has been obtained an an STS risk score will be calculated along with a clinical frailty score. Thank you Dr. Mejía for this consult and we will look for to working with you in the care of this patient. I have personally seen and examined the patient, performed the documentation and the assessment and plan as written. 30 minutes spent on the visit . Deuce JOYCE Attending Addendum: Pt seen and evaluated with DIRECTOR OF THERAPY SERVICES above. Agree with their assessment and plan. I spent 45 minutes reviewing the data and discussing the plan of care with the patient and the team. Time with Patient: Greater than 30
--- NOTE | 2024-01-18 09:45 | US ---
EXAMINATION TYPE: US carotid duplex BILAT DATE OF EXAM: 01/18/2024 COMPARISON: NONE CLINICAL INDICATION: Male, 78 years old with history of preop cardiac surgery; TECHNIQUE: Carotid duplex ultrasound examination. Indirect Doppler criteria was utilized. FINDINGS: EXAM MEASUREMENTS: RIGHT: Peak Systolic Velocity (PSV) cm/sec ----- Right CCA: 62.1 ----- Right ICA: 59.8 ----- Right ECA: 101.5 ICA/CCA ratio: 1.0 RIGHT: End Diastole cm/sec ----- Right CCA: 13.9 ----- Right ICA: 20.6 ----- Right ECA: 0.0 LEFT: Peak Systolic Velocity (PSV) cm/sec ----- Left CCA: 39.5 ----- Left ICA: 333.3 ----- Left ECA: 169.8 ICA/CCA ratio: 8.4 LEFT: End Diastole cm/sec ----- Left CCA: 10.7 ----- Left ICA: 90.8 ----- Left ECA: 0.0 VERTEBRALS (direction of flow): Right Vertebral: Antegrade Left Vertebral: Antegrade Rhythm: Normal Certified Orthotic Fitter notes: Left ICA/CCA ratio 8.4 Elevated velocities: left proximal ICA and left proximal ECA Exam done portable IMPRESSION: Measurements indicate a severe proximal left ICA stenosis. Criteria for Assigning % of Stenosis / Diameter reduction (Estimation based on the indirect measurements of the internal carotid artery velocities (ICA PSV). 1. Normal (no stenosis)=ICA PSV < 125 cm/s: ratio < 2.0: ICA EDV<40 cm/s. 2. Less than 50% stenosis=ICA PSV < 125 cm/s: ratio < 2.0: ICA EDV<40 cm/s. 3. 50 to 69% stenosis=ICA PSV of 125 to 230 cm/s: ration 2.0 ? 4.0: ICA EDV 40-100 cm/s. 4. Greater than 70% stenosis to near occlusion= ICA PSV > 230 cm/s: ratio > 4.0: ICA EDV > 100 cm/s. 5. Near occlusion= ICA PSV velocities may be low or undetectable: variable ratio and ICA EDV. 6. Total occlusion=unable to detect flow.
--- NOTE | 2024-01-18 11:21 | US ---
EXAMINATION TYPE: Pre-Operative Non-Invasive Evaluation of the hand for Potential Radial Artery Hanane rubio, Measurements only Exam done portable DATE OF EXAM: 01/18/2024 9:30 AM CLINICAL INDICATION: Male, 78 years old with history of measurements only; Pre op cardiac surgery SIDE PERFORMED: Left TECHNIQUE: Radial artery is measured utilizing real time linear array sonography. Dominant hand: Right Duplex Findings: Radial Artery: Color flow seen Measurements in mm, transverse view: Left Radial: Proximal: 4.6 x 5.0 mm Mid: 4.4 x 4.4 mm Distal: 4.5 x 4.7 mm IMPRESSION: 1. Unilateral left Radial artery measurements listed above. 2. Performing surgeon to determine viability as conduit.
--- NOTE | 2024-01-18 11:25 | US ---
EXAMINATION TYPE: US arterial LE multi level DATE OF EXAM: 01/18/2024 10:21 AM CLINICAL INDICATION: Male, 78 years old with history of Ankle Brachial Index (ABEL); open heart History of: Smoker: n Hypertension: n Diabetic: n Hyperlipidemia: n TIA/ CVA: n Previous Vascular Surgery: pending bypass CAD: n DC: y Vascular Ulcers: n Claudication: n Gangrene: n Doppler Waveforms: Right: Multiphasic Left: Multiphasic Right Brachial Pressure: 110 Left Brachial Pressure: IV site Ankle-Brachial Indices: Right: 1.1 Left: 1.1 (Vessel hardening > 1.4; Normal 0.9 - 1.4, Moderate 0.7 - 0.9, Severe 0.5-0.7) Toe Brachial Indices: Right: 0.8 Left: 0.8 IMPRESSION: Bilateral normal ABEL
[2024-01-18 12:42] LABS: Appearance,Urine Clear (Clear); Bilirubin,Urine Negative (Negative); Blood,Urine Small (Negative); Color,Urine Light Yellow; Glucose,Urine (UA) Negative (Negative); Ketones,Urine Negative (Negative); Leukocyte Esterase,Urine Negative (Negative); Nitrite,Urine Negative (Negative); Protein,Urine Negative (Negative); RBC,Urine 6 /hpf (0-5); Specific Gravity,Urine 1.014 (1.001-1.035); Urobilinogen,Urine <2.0 mg/dL (<2.0); WBC,Urine 1 /hpf (0-5)
[2024-01-18] MEDS ORDERED: ZINC OXIDE PASTE (Z-GUARD) 1 APPLIC TOPICAL PRN (13:06)
--- NOTE | 2024-01-18 13:29 | P.PN ---
Subjective Progress Note Date: 01/18/24 Hospital course Patient is a 78-year-old male with a past medical history of chronic low back pain and also pulmonary embolism and rheumatoid arthritis who was transferred from an outside facility for evaluation of his chest pain. In the ED patient was found to have elevated troponins. Patient started on heparin drip. Heart catheterization showed triple-vessel disease. CT surgery consulted. HPI Patient seen this morning. He is denying any chest pain. Patient states that he spoke with the CT surgeon this morning and bypass surgery is planned for likely this . 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 CTA chest was negative for pulmonary embolism. Patient currently on heparin drip. Will continue to hold Eliquis for now. Rheumatoid arthritis Will resume methotrexate on discharge DVT prophylaxis: Heparin drip Objective - Vital Signs Vital signs: Vital Signs Temp 97.9 F 01/18/24 08:41 Pulse 62 01/18/24 11:47 Resp 16 01/18/24 11:47 BP 112/63 01/18/24 11:47 Pulse Ox 98 01/18/24 11:47 FiO2 Intake & Output 01/17/24 01/18/24 01/18/24 18:59 06:59 18:59 Intake Total 200 685.334 73.961 Balance 200 685.334 73.961 Weight 83.915 kg Intake: IV 200 Intake, IV Titration 325.334 73.961 Amount Heparin Sod,Pork in 0.45% 325.334 73.961 NaCl 25,000 unit In 0.45 % NaCl 1 250ml.bag @ 11. 9168 UNITS/KG/HR 10 mls/ hr IV .Q24H SUSAN Rx#: [id number] Oral 360 0 Other: # Voids 1 0 # Bowel Movements 1 - Labs CBC & Chem 7: 01/18/24 04:02 01/18/24 04:02 Labs: Abnormal Lab Results - Last 24 Hours (Table) 01/17/24 01/18/24 01/18/24 Range/Units 15:48 04:02 04:02 RBC 3.45 L (4.30-5.90) m/uL Hgb 11.0 L (13.0-17.5) gm/dL Hct 33.8 L (39.0-53.0) % RDW 15.7 H (11.5-15.5) % APTT (22.0-30.0) sec D-Dimer 0.77 H (<0.60) mg/L FEU Chloride 109 H (98-107) mmol/L Creatinine 0.62 L (0.66-1.25) mg/dL Urine Blood (Negative) Urine RBC (0-5) /hpf 01/18/24 01/18/24 01/18/24 Range/Units 04:02 12:05 12:20 RBC (4.30-5.90) m/uL Hgb (13.0-17.5) gm/dL Hct (39.0-53.0) % RDW (11.5-15.5) % APTT 41.3 H 38.7 H (22.0-30.0) sec D-Dimer (<0.60) mg/L FEU Chloride (98-107) mmol/L Creatinine (0.66-1.25) mg/dL Urine Blood Small H (Negative) Urine RBC 6 H (0-5) /hpf
--- NOTE | 2024-01-18 13:46 | US ---
EXAMINATION TYPE: US vein mapping BILAT DATE OF EXAM: 01/18/2024 9:44 AM Exam done portable COMPARISON: NONE CLINICAL INDICATION: Male, 78 years old with history of preop cardiac surgery; SIDE PERFORMED: Bilateral TECHNIQUE: Lower extremity saphenous vein is examined and measured utilizing real time linear array sonography. DUPLEX FINDINGS: Greater Saphenous: Color flow seen Lesser Saphenous: Color flow seen Measurements in mm: Right Greater Saphenous: Groin: 5.9 x 5.3 mm High Thigh: 4.9 x 5.0 mm Mid Thigh: 4.3 x 4.2 mm Above Knee: 3.5 x 4.3 mm Knee: 4.4 x 5.0 mm Below Knee: 3.5 x 3.7 mm Mid Calf: 3.4 x 3.8 mm At Ankle: 3.3 x 3.6 mm Left Greater Saphenous: Groin: 5.4 x 4.6 mm High Thigh: 5.4 x 5.1 mm Mid Thigh: 3.9 x 4.6 mm Above Knee: 4.2 x 4.5 mm Knee: 4.2 x 4.8 mm Below Knee: 3.6 x 4.5 mm Mid Calf: 4.3 x 4.0 mm At Ankle: 3.7 x 4.2 mm IMPRESSION: 1. Bilateral GSV measurements listed above. 2. Performing surgeon to determine viability as conduit.
--- NOTE | 2024-01-18 13:53 | P.PN ---
Subjective Progress Note Date: 01/18/24 Chief complaint: Chest pain History of present illness: The patient is a pleasant 78-year-old gentleman with a past medical history significant for history of pulmonary embolism he was receiving oral anticoagulation with Eliquis as well as hypertension and dyslipidemia presented to the emergency room initially at [facility] complaining of chest discomfort and then he was transferred here. He was in his usual state of health till yesterday when he was sitting reading a book and suddenly started experiencing discomfort in the middle of the chest as a burning sensation radiating to his jaw with no associated symptoms of shortness of breath or sweating or dizziness or lightheadedness or any feeling of heart racing or fluttering or any presyncope or syncope. He presented initially to [facility] where he underwent further investigation including CTA of the chest which showed no evidence of pulmonary embolism. He was off oral anticoagulation to undergo an injection in the back on Thursday. The CTA showed no evidence of pu lmonary embolism. He underwent further investigation including an EKG which showed sinus mechanism with ST changes anteriorly with troponin came in to be mildly abnormal and definitely concerning for acute coronary syndrome but the chest x-ray did not show any acute abnormalities. Blood work including hemoglobin came in to be unremarkable and also kidney function came in to be unremarkable and electrolytes came in to be normal as well. Currently his chest pain-free but he is on heparin IV. Examination revealed regular rhythm with a systolic murmur at the right upper sternal border with clear breathing sounds bilaterally and no edema was noted. 01/17 Yesterday, patient underwent cardiac cath with Dr. Leon that revealed severe triple-vessel coronary artery disease. Low left-sided filling pressures. CTS has been consulted with plan for possible CABG on . Patient denies chest pain and no shortness of breath. He states he is tired as he has not been able to sleep.. He does complain of chronic back issues and shoulder pain. Blood pressure 98/58, heart rate 68, pulse ox 94% on room air. Echocardiogram reveals mildly impaired LV function with EF of 40 to 45%, moderate mitral regurgitation. Physical Examination Gen: This is a 78-year-old male in no acute distress HEENT: Head is atraumatic, normocephalic. Pupils equal, round. Sclerae is anicteric. NECK: Supple. No JVD. No lymphadenopathy. No thyromegaly. LUNGS: Clear to auscultation. No wheezes or rhonchi. No intercostal retractions. HEART: Regular rate and rhythm. Systolic murmur at the right upper sternal border. ABDOMEN: Soft. Bowel sounds are present. No masses. No tenderness. EXTREMITIES: No pedal edema. No calf tenderness. NEUROLOGICAL: Patient is awake, alert and oriented x3. Cranial nerves 2 through 12 are grossly intact. Assessment Acute coronary syndrome with acute non-ST elevation myocardial infarction with triple-vessel disease History of pulmonary embolism. Multiple comorbid conditions including hypertension and dyslipidemia Plan Continue the current medical regimen including the current dose of heparin IV Anti-ischemic medication including beta-richard as well as aspirin and statin Discontinue Nitropaste Continue plan for CABG as directed by CTS. Nurse practitioner note has been reviewed, I agree with documented findings and plan of care. Patient was seen and examined. Objective - Vital Signs Vital signs: Vital Signs Temp 97.9 F 01/18/24 08:41 Pulse 68 01/18/24 08:41 Resp 16 01/18/24 08:41 BP 98/58 01/18/24 08:41 Pulse Ox 94 L 01/18/24 08:41 FiO2 Intake & Output 01/17/24 01/18/24 01/18/24 18:59 06:59 18:59 Intake Total 200 685.334 0 Balance 200 685.334 0 Weight 83.915 kg Intake: IV 200 Intake, IV Titration 325.334 Amount Heparin Sod,Pork in 0.45% 325.334 NaCl 25,000 unit In 0.45 % NaCl 1 250ml.bag @ 11. 9168 UNITS/KG/HR 10 mls/ hr IV .Q24H SUSAN Rx#: [id number] Oral 360 0 Other: # Voids 1 0 # Bowel Movements 1 - Labs CBC & Chem 7: 01/18/24 04:02 01/18/24 04:02 Labs: Abnormal Lab Results - Last 24 Hours (Table) 01/17/24 01/18/24 01/18/24 Range/Units 15:48 04:02 04:02 RBC 3.45 L (4.30-5.90) m/uL Hgb 11.0 L (13.0-17.5) gm/dL Hct 33.8 L (39.0-53.0) % RDW 15.7 H (11.5-15.5) % APTT (22.0-30.0) sec D-Dimer 0.77 H (<0.60) mg/L FEU Chloride 109 H (98-107) mmol/L Creatinine 0.62 L (0.66-1.25) mg/dL 01/18/24 Range/Units 04:02 RBC (4.30-5.90) m/uL Hgb (13.0-17.5) gm/dL Hct (39.0-53.0) % RDW (11.5-15.5) % APTT 41.3 H (22.0-30.0) sec D-Dimer (<0.60) mg/L FEU Chloride (98-107) mmol/L Creatinine (0.66-1.25) mg/dL
[2024-01-18 16:16] LABS: Hepatitis A Antibody IgM Nonreactive (Nonreactive); Hepatitis B Core IgM Nonreactive (Nonreactive); Hepatitis B Surface Antigen Nonreactive (Nonreactive); Hepatitis C IgG Antibody Nonreactive (Nonreactive)
[2024-01-18 20:43] LABS: Chol/HDL Ratio 3.02 Ratio; LDL Cholesterol,Calculated 71.2 mg/dL (0.0-131.0)
--- NOTE | 2024-01-19 02:14 | P.CNPUL ---
History of Present Illness Consult date: 01/19/24 Requesting physician: Leia Romeo Reason for consult: other (Pulmonary clearance for planned CABG) Chief complaint: Chest pain History of present illness: Patient is a 78-year-old white male with past medical history significant for pulmonary embolism status post INARI procedure and chronically anticoagulated on Eliquis, hyperlipidemia, rheumatoid arthritis, PMR, multiple previous back surge bob and altered gait, and remote history of nicotine use over 20 years ago. No known pre-existing lung disease. [facility] in [place]. On 01/16/2024 the patient presented to [facility] complaining of new onset substernal chest pain that radiated to his left jaw and bilateral arms. He denied any associated shortness of breath, nausea, diaphoresis. This occurred while watching TV. Patient did not immediately present to the hospital because his was at worship. He was later drove to the hospital, approximately 2 hours later. Initial workup was suspicious for non-ST elevation OK, and patient was transferred to [facility] for further evaluation. He was started on IV heparin per protocol. He did undergo a transthoracic echocardiogram which showed a reduced ejection fraction of 40 to 45% with moderate mitral valve regurgitation. Subsequently, the patient did undergo a cardiac catheterization done 01/17/2024 which showed severe multivessel coronary artery disease. Disease vessels included the RCA with a tubular lesion of approximately 70-80% stenosis, LAD also had a long tubular lesion with a range of 60% stenosis, the the first obtuse marginal branch of the left circumflex artery had an ostial lesion with a range of approximately 90% stenosis. Cardiothoracic surgery was asked to evaluate the patient for surgical myocardial revascularization. We were then consulted for pulmonary clearance. On my evaluation, the patient is currently resting in bed, on room air, in no acute distress. Heparin continues to be infusing. Patient denies any current chest pain. Denies any shortness of breath or pulmonary complaints. Denies any history of lung disease. 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 A bedside spirometry showed an FEV1 of 2.79 L or 89% of predicted. CT of the chest from outside facility reviewed. No obvious pulmonary emboli. Small 2 x 4 mm pulmonary nodule, likely benign. No acute cardiopulmonary process. Eliquis is on hold. Heparin is infusion per protocol. Most recent APTT therapeutic. Most recent CBC and BMP from yesterday unremarkable. Troponins peaked at 0.5 at our facility. Hemodynamically stable. Review of Systems REVIEW OF SYSTEMS: CONSTITUTIONAL: Denies any recent significant weight loss or weight gain. EYES: Denies change in vision. EARS, NOSE, MOUTH, THROAT: Denies headaches, denies sore throat. CARDIOVASCULAR: Admits chest pain as described in HPI. No palpitations, syncopal events, or lower extremity swelling. RESPIRATORY: Denies shortness of breath, cough, congestion or hemoptysis. GASTROINTESTINAL: Denies change in appetite, abdominal pain, nausea and vom iting, or diarrhea GENITOURINARY: Denies hematuria, denies infections. MUSKULOSKELETAL: Chronic lumbar back pain. INTEGUMENTARY: Denies rash, denies eczema. NEUROLOGICAL: Denies recent memory loss, no recent seizure activity. PSYCHIATRIC: Denies anxiety, denies depression. HEMATOLOGIC/LYMPHATIC: Denies anemia, denies enlarged lymph node Past Medical History Past Medical History: Chest Pain / Angina, GERD/Reflux, Hearing Disorder / Deafness, Hyperlipidemia, Hypertension, Osteoarthritis (OA), Pulmonary Embolus (PE) Additional Past Medical History / Comment(s): Patient states was never told he had heart failure. At 42 was at [facility] and was told his spine was that of a 89 year old. Unknown cause. 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 hx of basal cell carcinoma on left cheek History of Any Multi-Drug Resistant Organisms: None Reported Past Surgical History: Back Surgery, Joint Replacement, Orthopedic Surgery Additional Past Surgical History / Comment(s): Left knee. 8 Back surgeries and Cage fusion L3 or L5. Cataracts Past Anesthesia/Blood Transfusion Reactions: No Reported Reaction Past Psychological History: Depression Smoking Status: Former smoker Past Alcohol Use History: None Reported Past Drug Use History: None Reported - Past Family History Father Family Medical History: Myocardial Infarction (OK) Mother Family Medical History: Hypertension Medications and Allergies Home Medications Medication Instructions Recorded Confirmed Type Amitriptyline HCl [Elavil] 25 mg PO DAILY 01/17/24 01/17/24 History Amitriptyline HCl [Elavil] 75 mg PO HS 01/17/24 01/17/24 History Apixaban [Eliquis] 2.5 mg PO BID 01/17/24 01/17/24 History Cholecalciferol [Vitamin D3 (125 125 mcg PO DAILY 01/17/24 01/17/24 History Mcg = 5000 Iu)] DULoxetine HCL [Cymbalta] 30 mg PO DAILY 01/17/24 01/17/24 History Docusate Sodium 250 mg PO TID 01/17/24 01/17/24 History HYDROcodone/APAP 10-325MG [[place] 1 tab PO Q6HR PRN 01/17/24 01/17/24 History 10-325] Lovastatin [Mevacor] 20 mg PO DAILY 01/17/24 01/17/24 History Metoprolol Succinate (ER) [Toprol 25 mg PO HS 01/17/24 01/17/24 History Xl] Multivitamins, Thera [Multivitamin 1 tab PO DAILY 01/17/24 01/17/24 History (formulary)] Omeprazole 20 mg PO DAILY 01/17/24 01/17/24 History PARoxetine [Paxil] 20 mg PO DAILY 01/17/24 01/17/24 History metHOTREXate sodium 12.5 mg PO MO 01/17/24 01/17/24 History Allergies Allergy/AdvReac Type Severity Reaction Status Date / Time morphine Allergy Unknown Verified 01/16/24 21:44 Physical Exam Vitals: Vital Signs Temp Pulse Resp BP Pulse Ox 01/18/24 23:52 70 18 104/64 94 L 01/18/24 20:45 97.5 F L 64 18 109/64 98 01/18/24 15:36 98.1 F 64 16 106/68 99 01/18/24 14:00 62 16 01/18/24 11:47 62 16 112/63 98 01/18/24 08:41 97.9 F 68 16 98/58 94 L 01/18/24 08:00 68 16 01/18/24 04:30 67 17 123/67 97 Intake and Output 01/18/24 01/18/24 01/19/24 14:59 22:59 06:59 Intake Total 73.961 209.372 Balance 73.961 209.372 Intake: Intake, IV Titration 73.961 89.372 Amount Heparin Sod,Pork in 0.45% 73.961 89.372 NaCl 25,000 unit In 0.45 % NaCl 1 250ml.bag @ 11. 9168 UNITS/KG/HR 10 mls/ hr IV .Q24H [facility] Rx#: [id number] Oral 0 120 Other: # Voids 0 2 # Bowel Movements 0 GENERAL EXAM: Alert, 78-year-old white male appearing stated age, comfortable in no apparent distress. HEAD: Normocephalic and atraumatic EYES: Normal reaction of pupils, equal size. NOSE: Clear with pink turbinates. THROAT: No erythema or exudates. NECK: No masses, no JVD. CHEST: No chest wall deformity. LUNGS: Equal air entry with no crackles, wheeze, rhonchi or dullness. On room air. No conversational dyspnea or accessory muscle use.. CVS: S1 and S2 normal with no audible murmur, regular rhythm. No extra heart sounds ABDOMEN: No hepatosplenomegaly, active bowel sounds, no guarding or rigidity. SPINE: No scoliosis or deformity SKIN: No rashes CENTRAL NERVOUS SYSTEM: No focal deficits, tone is normal in all 4 extremities. EXTREMITIES: There is no peripheral edema, clubbing, or cyanosis. Dactylitis. Peripheral pulses are intact. Results - Laboratory Findings CBC and BMP: 01/18/24 04:02 01/18/24 04:02 PT/INR, D-dimer PT 10.5 sec (10.0-12.5) 01/17/24 03:18 INR 1.0 (<1.2) 01/17/24 03:18 D-Dimer 0.77 mg/L FEU (<0.60) H 01/17/24 15:48 Abnormal lab findings: Abnormal Labs 01/16/24 01/16/24 01/16/24 21:45 21:45 21:45 RBC 3.77 L Hgb 11.8 L Hct 37.1 L RDW APTT 61.8 H D-Dimer Chloride 108 H Creatinine Glucose 107 H Hemoglobin A1c Alkaline Phosphatase 137 H Troponin I Total Protein 6.1 L Urine Blood Urine RBC 01/16/24 01/17/24 01/17/24 21:45 00:55 03:18 RBC Hgb Hct RDW APTT 48.0 H D-Dimer Chloride Creatinine Glucose Hemoglobin A1c Alkaline Phosphatase Troponin I 0.310 H* 0.440 H* Total Protein Urine Blood Urine RBC 01/17/24 01/17/24 01/17/24 03:18 03:18 03:18 RBC 3.78 L Hgb 11.8 L Hct 37.4 L RDW APTT D-Dimer Chloride Creatinine 0.63 L Glucose 103 H Hemoglobin A1c Alkaline Phosphatase Troponin I 0.500 H* Total Protein 6.1 L Urine Blood Urine RBC 01/17/24 01/17/24 01/18/24 07:15 15:48 04:02 RBC 3.45 L Hgb 11.0 L Hct 33.8 L RDW 15.7 H APTT 43.7 H D-Dimer 0.77 H Chloride Creatinine Glucose Hemoglobin A1c Alkaline Phosphatase Troponin I Total Protein Urine Blood Urine RBC 01/18/24 01/18/24 01/18/24 04:02 04:02 12:05 RBC Hgb Hct RDW APTT 41.3 H 38.7 H D-Dimer Chloride 109 H Creatinine 0.62 L Glucose Hemoglobin A1c Alkaline Phosphatase Troponin I Total Protein Urine Blood Urine RBC 01/18/24 01/18/24 01/18/24 12:05 12:20 18:50 RBC Hgb Hct RDW APTT 54.1 H D-Dimer Chloride Creatinine Glucose Hemoglobin A1c 6.1 H Alkaline Phosphatase Troponin I Total Protein Urine Blood Small H Urine RBC 6 H - Diagnostic Findings CT scan - chest: image reviewed Assessment and Plan Assessment: Non-ST elevation myocardial infarction, patient was transferred from [facility] 01/16/2024. Did undergo heart catheterization at our facility 01/17/2024 which showed severe multivessel coronary artery disease. Diseased vessels included the RCA with a tubular lesion of approximately 70-80% stenosis, LAD also had a long tubular lesion with a range of 60% stenosis, the the first obtuse marginal branch of the left circumflex artery had an ostial lesion with a range of approximately 90% stenosis. Currently on heparin infusion per protocol. Cardiothoracic surgery was asked to evaluate the patient for surgical myocardial revascularization. Multivessel coronary artery disease, as dictated above History of pulmonary embolism, status post INARI procedure, has been chronically anticoagulated on Eliquis. CT angio of the chest reviewed from outside facility. Remote history of tobacco use, quitting over 20 years ago Severe proximal left ICA stenosis, as reported from carotid Doppler, asymptomatic Hyperlipidemia History of rheumatoid arthritis History of PMR History of multiple previous back surgeries and chronic lower back pain GERD, without esophagitis Plan: Patient's medications, labs, chest CTA were reviewed Patient is on room air without any pulmonary complaints. Denies any pre-existing history of lung disease. Bedside spirometry calculated FEV1 of 2.79 L or 89% of predicted. From a pulmonary standpoint, patient is at no increased perioperative risk, and we will clear this patient for surgery. Tentative plan for CABG later this week after workup is complete. STS score is being calculated. Heparin infusion continue as per protocol. Also continues on beta-richard and statin. We will continue to follow this patient during his perioperative hospital stay and while in the intensive care unit. I have personally seen and examined the patient, performed the documentation and the assessment and plan as written. Number of minutes spent on the visit:20 Time with Patient: Greater than 30
--- NOTE | 2024-01-19 09:15 | P.PN ---
Subjective Progress Note Date: 01/19/24 Principal diagnosis: Multivessel coronary artery disease, NSTEMI this admission, left internal carotid artery stenosis. History of pulmonary embolus in October 2022 status post INARI procedure on Eliquis For anticoagulation, hyperlipidemia, depression, chronic back pain, anemia, rheumatoid arthritis, GERD, previous tobacco dependence, and family history of coronary artery disease on his father's side The patient was seen and examined this morning sitting up in bed on the cardiac stepdown unit in no acute distress. Remains in sinus rhythm, hemodynamically stable, remains on room air. Patient denies any chest pain or shortness of breath currently. He was seen by Dr. Gillespie yesterday, recommendations were made for coronary artery bypass surgery this admission with potential plans for . All questions were answered and patient is agreeable and gives consent. STS risk score was calculated and discussed with the patient, he remains low risk. Clinical frailty score equals 3. No other new concerns. Objective - Vital Signs Vital signs: Vital Signs Temp 97.5 F L 01/18/24 20:45 Pulse 63 01/19/24 04:00 Resp 18 01/19/24 04:00 BP 121/70 01/19/24 04:00 Pulse Ox 97 01/19/24 04:00 FiO2 Intake & Output 01/18/24 01/19/24 01/19/24 18:59 06:59 18:59 Intake Total 193.961 89.372 Balance 193.961 89.372 Intake: Intake, IV Titration 73.961 89.372 Amount Heparin Sod,Pork in 0.45% 73.961 89.372 NaCl 25,000 unit In 0.45 % NaCl 1 250ml.bag @ 11. 9168 UNITS/KG/HR 10 mls/ hr IV .Q24H [facility] Rx#: [id number] Oral 120 Other: # Voids 2 1 # Bowel Movements 0 - Exam CONSTITUTIONAL: Appears comfortable, cooperative, no acute distress RESPIRATORY: Lungs sounds diminished bilaterally. Respirations even, nonlabored. Currently on room air with oxygen saturation 97%. Able to achieve 3250 mL on incentive spirometry. Strong cough. CARDIOVASCULAR: S1, S2 present. Regular rate and rhythm, sinus rhythm on telemetry. Palpable peripheral pulses bilaterally. No edema present. No calf pain or tenderness noted GASTROINTESTINAL: Abdomen soft, nontender, nondistended. Active bowel sounds present 4 quadrants. Tolerating diet. Positive bowel movement 01/17. GENITOURINARY: Continues to void INTEGUMENTARY: Skin is warm and dry NEUROLOGIC: Cranial nerves II through XII intact MUSKULOSKELETAL: Able to move all extremities, strength equal bilaterally, gait normal PSYCHIATRIC: Alert and oriented to person place and time, appropriate affect, intact judgment and insight - Allied health notes Allied health notes reviewed: nursing - Labs CBC & Chem 7: 01/18/24 04:02 01/18/24 04:02 Labs: Abnormal Lab Results - Last 24 Hours (Table) 01/18/24 01/18/24 01/18/24 Range/Units 12:05 12:05 12:20 APTT 38.7 H (22.0-30.0) sec Hemoglobin A1c 6.1 H (<=6.0) % Urine Blood Small H (Negative) Urine RBC 6 H (0-5) /hpf 01/18/24 Range/Units 18:50 APTT 54.1 H (22.0-30.0) sec Hemoglobin A1c (<=6.0) % Urine Blood (Negative) Urine RBC (0-5) /hpf Assessment and Plan Assessment: Multivessel coronary artery disease, NSTEMI this admission Left internal carotid artery stenosis, asymptomatic History of pulmonary embolus in October 2022 status post INARI procedure on Eliquis For anticoagulation, last dose of Eliquis was 01/14/24 Hyperlipidemia, treated, cholesterol 147, LDL 71 Depression, treated Chronic back pain, on chronic [place] Anemia of chronic disease Rheumatoid arthritis, on methotrexate outpatient, last dose 01/11/24 GERD Previous tobacco dependence, preoperative FEV1 89% of predicted Family history of coronary artery disease Plan: Continue to maximize medical therapy with aspirin, statin, beta-richard Continue preoperative teaching Tentatively our plan is for off-pump coronary artery bypass utilizing left internal mammary artery, left radial artery, and endoscopic vein harvesting with ligation of the left atrial appendage by Dr. Gillespie on December Increase activity, ambulate as tolerated Encourage incentive spirometry use More recommendations to follow
[2024-01-19] MEDS: MUPIROCIN 2% OINT 22 GM TUBE NASAL SCH (09:30)
[2024-01-19 10:42] LABS: Basophils % (A) 1 %; Eosinophils # (A) 0.2 k/uL (0-0.7); Eosinophils % (A) 4 %; HCT 37.4 % (39.0-53.0); HGB 11.4 gm/dL (13.0-17.5); Hypochromasia Slight; Lymphocytes # (A) 1.3 k/uL (1.0-4.8); Lymphocytes % (A) 24 %; MCH 30.7 pg (25.0-35.0); MCHC 30.4 g/dL (31.0-37.0); MCV 100.9 fL (80.0-100.0); Macrocytosis Slight; Mean Platelet Volume 7.5; Monocytes # (A) 0.5 k/uL (0-1.0); Monocytes % (A) 9 %; Neutrophils # (A) 3.4 k/uL (1.3-7.7); Neutrophils % (A) 61 %; Platelet Count 238 k/uL (150-450); RBC 3.71 m/uL (4.30-5.90); RDW 15.5 % (11.5-15.5); WBC 5.6 k/uL (3.8-10.6)
[2024-01-19 12:03] LABS: African American GFR (CKD) >90 (>60 ml/min/1.73 sqM); Anion Gap 3 mmol/L; Blood Urea Nitrogen 11 mg/dL (9-20); Calcium 8.9 mg/dL (8.4-10.2); Carbon Dioxide 30 mmol/L (22-30); Chloride 109 mmol/L (98-107); Glucose 91 mg/dL (74-99); Magnesium 1.9 mg/dL (1.6-2.3); Non-African American GFR(CKD) 88 (>60 ml/min/1.73 sqM); Potassium 4.5 mmol/L (3.5-5.1); Sodium 142 mmol/L (137-145)
--- NOTE | 2024-01-19 13:14 | P.PN ---
Subjective Progress Note Date: 01/19/24 (seen at 1130) Patient is a 78-year-old male with chronic low back pain, prior pulmonary embolism, and rheumatoid arthritis who initially was transferred from an outside facility for evaluation of chest pain. On arrival here he had mildly elevated troponins that maxed at 0.50. Cardiology was consulted. He underwent an echocardiogram which demonstrated ejection fraction of 40 to 45% with mildly reduced global left ventricular systolic function and no regional wall motion abnormalities. Cardiology was consulted. He underwent cardiac catheterization on 01/16 which revealed severe triple-vessel coronary artery disease with low left-sided filling pressures. CT surgery was subsequently consulted and plan is for cardiac bypass on 01/20. Patient seen and examined at bedside. No chest pain overnight, not lightheaded, no dizziness, no nausea. Feeling well. Vital signs reviewed General: [nontoxic], [no distress], [appears at stated age] Cardiovascular: [S1S2 reg], [no murmur] Lungs: [CTA bilateral], [no rhonchi, no rales] , [no accessory muscle use] Abdominal: [soft], [ nontender to palpation], [no guarding] Ext: [no gross muscle atrophy], [no edema b/l lower extremities], [no con tractures] Neuro: [ CN II-XI grossly intact], [no focal neuro deficits] Psych: [Alert], [oriented], [appropriate affect] Assessment/Plan: Non-ST segment elevated myocardial infarction Severe triple-vessel coronary artery disease Dyslipidemia Left carotid stenosis Cardiomyopathy, likely ischemic with EF 40-45% -CT surgery note reviewed: Await preoperative testing, likely will be scheduled for coronary artery bypass grafting this admission. -Pulmonary clearance note reviewed: FEV1 89% of predicted at 2.79 L. -Cardiology note reviewed from 01/17: Continue with IV heparin, discontinue Nitropaste -Aspirin 81 mg daily -Lipitor 20 mg at night (current LDL 71) -Metoprolol succinate 50 mg daily Anemia, mild -Given that the patient will be undergoing open heart surgery we will check iron studies. Constipation -Dulcolax 5 mg p.o. daily as needed Rheumatoid arthritis Chronic back pain -Hold methotrexate -Continue with Elavil 25 mg in the morning and 75 mg at night, Randall 10/325 every 6 hours as needed for pain, Cymbalta 30 mg daily History of pulmonary embolism -Patient was holding Eliquis for epidural injection, CTA was negative for pulmonary embolism. Continue with heparin drip while Eliquis on hold Chronic: Anemia GERD Imaging: Lower extremity arterial Doppler: Normal ABEL Carotid artery Doppler: Severe proximal left ICA stenosis > 70% Echocardiogram: Ejection fraction 40 to 45%, mild reduced global left ventricular systolic function Data Review: Labs reviewed from today include CBC and basic metabolic profile remarkable for hemoglobin of 11.4 and chloride of 109. DVT prophylaxis: Heparin gtt Anticipated discharge date: Pending Clinical Course Anticipated discharge place: Pending Clinical Course This dictation was prepared using [employer] voice recognition software. Though every attempt is made to correct errors during dictation some may still exist. Objective - Vital Signs Vital signs: Vital Signs Temp 97.5 F L 01/18/24 20:45 Pulse 63 01/19/24 04:00 Resp 18 01/19/24 04:00 BP 121/70 01/19/24 04:00 Pulse Ox 97 01/19/24 04:00 FiO2 Intake & Output 01/18/24 01/19/24 01/19/24 18:59 06:59 18:59 Intake Total 193.961 89.372 Balance 193.961 89.372 Intake: Intake, IV Titration 73.961 89.372 Amount Heparin Sod,Pork in 0.45% 73.961 89.372 NaCl 25,000 unit In 0.45 % NaCl 1 250ml.bag @ 11. 9168 UNITS/KG/HR 10 mls/ hr IV .Q24H [facility] Rx#: [id number] Oral 120 Other: # Voids 2 1 # Bowel Movements 0 - Labs CBC & Chem 7: 01/19/24 08:51 01/19/24 08:51 Labs: Abnormal Lab Results - Last 24 Hours (Table) 01/18/24 01/18/24 01/18/24 Range/Units 12:05 12:05 12:20 APTT 38.7 H (22.0-30.0) sec Hemoglobin A1c 6.1 H (<=6.0) % Urine Blood Small H (Negative) Urine RBC 6 H (0-5) /hpf 01/18/24 Range/Units 18:50 APTT 54.1 H (22.0-30.0) sec Hemoglobin A1c (<=6.0) % Urine Blood (Negative) Urine RBC (0-5) /hpf
[2024-01-19] MEDS: bisacodyL 5 MG TABLET.DR PO PRN (14:32)
--- NOTE | 2024-01-19 14:46 | P.PN ---
Subjective Progress Note Date: 01/19/24 Chief complaint: Chest pain History of present illness: The patient is a pleasant 78-year-old gentleman with a past medical history significant for history of pulmonary embolism he was receiving oral anticoagulation with Eliquis as well as hypertension and dyslipidemia presented to the emergency room initially at [facility] complaining of chest discomfort and then he was transferred here. He was in his usual state of health till yesterday when he was sitting reading a book and suddenly started experiencing discomfort in the middle of the chest as a burning sensation radiating to his jaw with no associated symptoms of shortness of breath or sweating or dizziness or lightheadedness or any feeling of heart racing or fluttering or any presyncope or syncope. He presented initially to [facility] where he underwent further investigation including CTA of the chest which showed no evidence of pulmonary embolism. He was off oral anticoagulation to undergo an injection in the back on Thursday. The CTA showed no evidence of pu lmonary embolism. He underwent further investigation including an EKG which showed sinus mechanism with ST changes anteriorly with troponin came in to be mildly abnormal and definitely concerning for acute coronary syndrome but the chest x-ray did not show any acute abnormalities. Blood work including hemoglobin came in to be unremarkable and also kidney function came in to be unremarkable and electrolytes came in to be normal as well. Currently his chest pain-free but he is on heparin IV. Examination revealed regular rhythm with a systolic murmur at the right upper sternal border with clear breathing sounds bilaterally and no edema was noted. 01/17 Yesterday, patient underwent cardiac cath with Dr. Leon that revealed severe triple-vessel coronary artery disease. Low left-sided filling pressures. CTS has been consulted with plan for possible CABG on . Patient denies chest pain and no shortness of breath. He states he is tired as he has not been able to sleep.. He does complain of chronic back issues and shoulder pain. Blood pressure 98/58, heart rate 68, pulse ox 94% on room air. Echocardiogram reveals mildly impaired LV function with EF of 40 to 45%, moderate mitral regurgitation. 01/18 Patient is scheduled for CABG on 01/[address] Gillespie. Blood pressure 116/76, heart rate 73, pulse ox 97% on room air. Patient denies chest pain or pressure. He remains on Heparin gtt. He plans to walk in the [place] later today. Physical Examination Gen: This is a 78-year-old male in no acute distress HEENT: Head is atraumatic, normocephalic. Pupils equal, round. Sclerae is a nicteric. LUNGS: Clear to auscultation. No wheezes or rhonchi. No intercostal retractions. HEART: Regular rate and rhythm. Systolic murmur at the right upper sternal border. ABDOMEN: Soft. Bowel sounds are present. No masses. No tenderness. EXTREMITIES: No pedal edema. No calf tenderness. NEUROLOGICAL: Patient is awake, alert and oriented x3. Assessment Acute coronary syndrome with acute non-ST elevation myocardial infarction with triple-vessel disease History of pulmonary embolism. Multiple comorbid conditions including hypertension and dyslipidemia Plan Continue the current medical regimen including the current dose of heparin IV Anti-ischemic medication including beta-richard as well as aspirin and statin Continue plan for CABG scheduled for 01/20. Nurse practitioner note has been reviewed, I agree with documented findings and plan of care. Patient was seen and examined. Objective - Vital Signs Vital signs: Vital Signs Temp 97.5 F L 01/19/24 08:59 Pulse 73 01/19/24 11:23 Resp 18 01/19/24 11:23 BP 116/76 01/19/24 11:23 Pulse Ox 97 01/19/24 11:23 FiO2 Intake & Output 01/18/24 01/19/24 01/19/24 18:59 06:59 18:59 Intake Total 193.961 89.372 118 Balance 193.961 89.372 118 Intake: Intake, IV Titration 73.961 89.372 Amount Heparin Sod,Pork in 0.45% 73.961 89.372 NaCl 25,000 unit In 0.45 % NaCl 1 250ml.bag @ 11. 9168 UNITS/KG/HR 10 mls/ hr IV .Q24H [facility] Rx#: [id number] Oral 120 118 Other: # Voids 2 1 # Bowel Movements 0 - Labs CBC & Chem 7: 01/19/24 08:51 01/19/24 08:51 Labs: Abnormal Lab Results - Last 24 Hours (Table) 01/18/24 01/18/24 01/18/24 Range/Units 12:05 12:05 12:20 RBC (4.30-5.90) m/uL Hgb (13.0-17.5) gm/dL Hct (39.0-53.0) % MCV (80.0-100.0) fL MCHC (31.0-37.0) g/dL APTT 38.7 H (22.0-30.0) sec Hemoglobin A1c 6.1 H (<=6.0) % Urine Blood Small H (Negative) Urine RBC 6 H (0-5) /hpf Crossmatch 01/18/24 01/19/24 01/19/24 Range/Units 18:50 08:51 10:10 RBC 3.71 L (4.30-5.90) m/uL Hgb 11.4 L (13.0-17.5) gm/dL Hct 37.4 L (39.0-53.0) % MCV 100.9 H (80.0-100.0) fL MCHC 30.4 L (31.0-37.0) g/dL APTT 54.1 H (22.0-30.0) sec Hemoglobin A1c (<=6.0) % Urine Blood (Negative) Urine RBC (0-5) /hpf Crossmatch See Detail 01/19/24 Range/Units 10:56 RBC (4.30-5.90) m/uL Hgb (13.0-17.5) gm/dL Hct (39.0-53.0) % MCV (80.0-100.0) fL MCHC (31.0-37.0) g/dL APTT 63.9 H (22.0-30.0) sec Hemoglobin A1c (<=6.0) % Urine Blood (Negative) Urine RBC (0-5) /hpf Crossmatch
--- NOTE | 2024-01-20 08:33 | P.PN ---
Subjective Progress Note Date: 01/20/24 Principal diagnosis: Multivessel coronary artery disease, NSTEMI this admission, left internal carotid artery stenosis. History of pulmonary embolus in October 2022 status post INARI procedure on Eliquis For anticoagulation, hyperlipidemia, depression, chronic back pain, anemia, rheumatoid arthritis, GERD, previous tobacco dependence, and family history of coronary artery disease on his father's side The patient was seen and examined this morning sitting up in bed on the cardiac stepdown unit in no acute distress. Remains in sinus rhythm, hemodynamically stable, remains on room air. Patient denies any chest pain or shortness of breath currently. No new questions currently. 5 m walk test completed this morning, #1 5.5 sec, #2 6.05 sec, #3 5.29 sec. Patient tolerated well although his legs started to hurt after the third episode. No other new concerns. Objective - Vital Signs Vital signs: Vital Signs Temp 97.9 F 01/20/24 04:00 Pulse 70 01/20/24 04:00 Resp 16 01/20/24 04:00 BP 137/76 01/20/24 04:00 Pulse Ox 96 01/20/24 04:00 FiO2 Intake & Output 01/19/24 01/20/24 01/20/24 18:59 06:59 18:59 Intake Total 702.384 Balance 702.384 Intake: Intake, IV Titration 226.384 Amount Heparin Sod,Pork in 0.45% 226.384 NaCl 25,000 unit In 0.45 % NaCl 1 250ml.bag @ 11. 9168 UNITS/KG/HR 10 mls/ hr IV .Q24H [facility] Rx#: [id number] Oral 476 Other: # Voids 1 1 - Exam CONSTITUTIONAL: Appears comfortable, cooperative, no acute distress RESPIRATORY: Lungs sounds diminished bilaterally. Respirations even, nonlabored. Currently on room air with oxygen saturation 96%. Able to achieve 3250 mL on incentive spirometry. Strong cough. CARDIOVASCULAR: S1, S2 present. Regular rate and rhythm, sinus rhythm on telemetry. Palpable peripheral pulses bilaterally. No edema present. No calf pain or tenderness noted GASTROINTESTINAL: Abdomen soft, nontender, nondistended. Active bowel sounds present 4 quadrants. Tolerating diet. Positive bowel movement 01/17. GENITOURINARY: Continues to void INTEGUMENTARY: Skin is warm and dry NEUROLOGIC: Cranial nerves II through XII intact MUSKULOSKELETAL: Able to move all extremities, strength equal bilaterally, gait normal PSYCHIATRIC: Alert and oriented to person place and time, appropriate affect, intact judgment and insight - Labs CBC & Chem 7: 01/19/24 08:51 01/19/24 08:51 Labs: Abnormal Lab Results - Last 24 Hours (Table) 01/19/24 01/19/24 01/19/24 Range/Units 08:51 08:51 10:10 RBC 3.71 L (4.30-5.90) m/uL Hgb 11.4 L (13.0-17.5) gm/dL Hct 37.4 L (39.0-53.0) % MCV 100.9 H (80.0-100.0) fL MCHC 30.4 L (31.0-37.0) g/dL APTT (22.0-30.0) sec Chloride 109 H (98-107) mmol/L Crossmatch See Detail 01/19/24 Range/Units 10:56 RBC (4.30-5.90) m/uL Hgb (13.0-17.5) gm/dL Hct (39.0-53.0) % MCV (80.0-100.0) fL MCHC (31.0-37.0) g/dL APTT 63.9 H (22.0-30.0) sec Chloride (98-107) mmol/L Crossmatch Microbiology - Last 24 Hours (Table) 01/18/24 13:30 Nasal Screen MRSA/MSSA - Final Nasal Swab Assessment and Plan Assessment: Multivessel coronary artery disease, NSTEMI this admission Left internal carotid artery stenosis, asymptomatic History of pulmonary embolus in October 2022 status post INARI procedure on Eliquis For anticoagulation, last dose of Eliquis was 01/14/24 Hyperlipidemia, treated, cholesterol 147, LDL 71 Depression, treated Chronic back pain, on chronic Orient Anemia of chronic disease Rheumatoid arthritis, on methotrexate outpatient, last dose 01/11/24 GERD Previous tobacco dependence, preoperative FEV1 89% of predicted Family history of coronary artery disease Plan: Continue to maximize medical therapy with aspirin, statin, beta-richard Continue preoperative teaching Our plan is for off-pump coronary artery bypass utilizing left internal mammary artery, left radial artery, and endoscopic vein harvesting with ligation of the left atrial appendage by Dr. Gillespie on December NPO after midnight Increase activity, ambulate as tolerated Encourage incentive spirometry use More recommendations to follow
[2024-01-20] MEDS ORDERED: MD COMMUNICATION TO PHARMACY 1 EACH MISC PO ONE (10:56)
[2024-01-20 11:02] LABS: % Iron Saturation 31.4 (15.00-50.00)
--- NOTE | 2024-01-20 13:57 | P.PN ---
Subjective Progress Note Date: 01/20/24 Principal diagnosis: Coronary disease. Patient is a 78-year-old white male with past medical history significant for pulmonary embolism status post INARI procedure and chronically anticoagulated on Eliquis, hyperlipidemia, rheumatoid arthritis, PMR, multiple previous back surgeries and altered gait, and remote history of nicotine use over 20 years ago. No known pre-existing lung disease. Follows at the [facility] in [place]. On 01/16/2024 the patient presented to [facility] complaining of new onset substernal chest pain that radiated to his left jaw and bilateral arms. He denied any associated shortness of breath, nausea, diaphoresis. This occurred while watching TV. Patient did not immediately present to the hospital because his was at [facility]. He was later drove to the hospital, approximately 2 hours later. Initial workup was suspicious for non-ST elevation MT, and patient was transferred to [facility] for further evaluation. He was started on IV heparin per protocol. He did undergo a transthoracic echocardiogram which showed a reduced ejection fraction of 40 to 45% with moderate mitral valve regurgitation. Subsequently, the patient did undergo a cardiac catheterization done 01/17/2024 which showed severe multivessel coronary artery disease. Disease vessels included the RCA with a tubular lesion of approximately 70-80% stenosis, LAD also had a long tubular lesion with a range of 60% stenosis, the the first obtuse marginal branch of the left circumflex artery had an ostial lesion with a range of approximately 90% stenosis. Cardiothoracic surgery was asked to evaluate the patient for surgical myocardial revascularization. We were then consulted for pulmonary clearance. On my evaluation, the patient is currently resting in bed, on room air, in no acute distress. Heparin continues to be infusing. Patient denies any current chest pain. Denies any shortness of breath or pulmonary complaints. Denies any history of lung disease. 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 A bedside spirometry showed an FEV1 of 2.79 L or 89% of predicted. CT of the chest from outside facility reviewed. No obvious pulmonary emboli. Small 2 x 4 mm pulmonary nodule, likely benign. No acute cardiopulmonary process. Eliquis is on hold. Heparin is infusion per protocol. Most recent APTT therapeutic. Most recent CBC and BMP from yesterday unremarkable. Troponins peaked at 0.5 at our facility. Hemodynamically stable. Progress note dated January 20, 2024. This is a 78-year-old male that we saw yesterday in consultation. The patient is scheduled for bypass grafting, tomorrow, January 20. The patient is on room air. He is not receiving any IV fluids. The patient does continue on IV heparin. Yesterday I introduced myself to the patient, and basically told him my role in this whole process, which is to get him off the mechanical ventilator as soon as possible, and to also maintain normal lung function, throughout his hospital course. I told him the incentive spirometer, in that regard, was very important. No new labs today other than a PTT of 55.9. Objective - Vital Signs Vital signs: Vital Signs Temp 97.4 F L 01/20/24 11:57 Pulse 71 01/20/24 11:57 Resp 16 01/20/24 11:57 BP 101/62 01/20/24 11:57 Pulse Ox 95 01/20/24 11:57 FiO2 Intake & Output 01/19/24 01/20/24 01/20/24 18:59 06:59 18:59 Intake Total 702.384 730 Balance 702.384 730 Weight 88.2 kg Intake: Intake, IV Titration 226.384 250 Amount Heparin Sod,Pork in 0.45% 226.384 250 NaCl 25,000 unit In 0.45 % NaCl 1 250ml.bag @ 11. 9168 UNITS/KG/HR 10 mls/ hr IV .Q24H [facility] Rx#: [id number] Oral 476 480 Other: # Voids 1 1 - Exam No acute distress, oriented 3. Currently on room air. HEENT examination is grossly unremarkable. Mucous membranes are moist. No oral lesions. Neck supple. Full range of motion. No adenopathy thyromegaly or neck vein distention. Cardiovascular examination reveals regular rhythm rate. S1-S2 normal. No S3 or S4. No discernible murmur noted. Heart rate is 71 bpm. Lungs reveal clear breath sounds. Breath sounds are equal bilaterally. No adventitious lung sounds including wheezes rhonchi or crackles. Abdomen soft bowel sounds are heard. No masses or tenderness. Extremities are intact. No cyanosis clubbing or edema. Skin is without rash or lesion. Neurologic examination is brief but nonfocal. - Labs CBC & Chem 7: 01/19/24 08:51 01/19/24 08:51 Labs: Abnormal Lab Results - Last 24 Hours (Table) 01/19/24 01/20/24 Range/Units 10:10 07:51 APTT 55.9 H (22.0-30.0) sec Crossmatch See Detail Microbiology - Last 24 Hours (Table) 01/18/24 13:30 Nasal Screen MRSA/MSSA - Final Nasal Swab Assessment and Plan Assessment: Non-ST elevation myocardial infarction, patient was transferred from [facility] 01/16/2024. Did undergo heart catheterization at our facility 0 01/17/2024 which showed severe multivessel coronary artery disease. Diseased vessels included the RCA with a tubular lesion of approximately 70-80% stenosis, LAD also had a long tubular lesion with a range of 60% stenosis, the the first obtuse marginal branch of the left circumflex artery had an ostial lesion with a range of approximately 90% stenosis. Currently on heparin infusion per protocol. Cardiothoracic surgery was asked to evaluate the patient for surgical myocardial revascularization. Multivessel coronary artery disease. History of pulmonary embolism, status post INARI procedure, has been chronically anticoagulated on Eliquis. Remote history of tobacco use. Severe proximal left ICA stenosis. Hyperlipidemia. History of rheumatoid arthritis. History of PMR. History of multiple previous back surgeries and chronic lower back pain. GERD, without esophagitis. Plan: Plan dated January 20, 2024. The patient has stable lung function. The patient should do well with his surgical procedure. I explained to him that we will be trying to get him off the ventilator as quickly as possible, after he arrives to the intensive care unit, from the operating room. After extubation, the patient will be seen by us on a daily basis, to make sure that his lungs remain healthy, and to prevent pleural effusion, atelectasis, lobar collapse, pneumonia, etc. In that regard the incentive spirometry is very important. He understands that. The patient does not have a history of any lung issues. Time with Patient: Less than 30
--- NOTE | 2024-01-20 14:38 | P.PN ---
Subjective Progress Note Date: 01/20/24 Chief complaint: Chest pain History of present illness: The patient is a pleasant 78-year-old gentleman with a past medical history significant for history of pulmonary embolism he was receiving oral anticoagulation with Eliquis as well as hypertension and dyslipidemia presented to the emergency room initially at [facility] complaining of chest discomfort and then he was transferred here. He was in his usual state of health till yesterday when he was sitting reading a book and suddenly started experiencing discomfort in the middle of the chest as a burning sensation radiating to his jaw with no associated symptoms of shortness of breath or sweating or dizziness or lightheadedness or any feeling of heart racing or fluttering or any presyncope or syncope. He presented initially to [facility] where he underwent further investigation including CTA of the chest which showed no evidence of pulmonary embolism. He was off oral anticoagulation to undergo an injection in the back on Thursday. The CTA showed no evidence of pu lmonary embolism. He underwent further investigation including an EKG which showed sinus mechanism with ST changes anteriorly with troponin came in to be mildly abnormal and definitely concerning for acute coronary syndrome but the chest x-ray did not show any acute abnormalities. Blood work including hemoglobin came in to be unremarkable and also kidney function came in to be unremarkable and electrolytes came in to be normal as well. Currently his chest pain-free but he is on heparin IV. Examination revealed regular rhythm with a systolic murmur at the right upper sternal border with clear breathing sounds bilaterally and no edema was noted. 01/17 Yesterday, patient underwent cardiac cath with Dr. Leon that revealed severe triple-vessel coronary artery disease. Low left-sided filling pressures. CTS has been consulted with plan for possible CABG on . Patient denies chest pain and no shortness of breath. He states he is tired as he has not been able to sleep.. He does complain of chronic back issues and shoulder pain. Blood pressure 98/58, heart rate 68, pulse ox 94% on room air. Echocardiogram reveals mildly impaired LV function with EF of 40 to 45%, moderate mitral regurgitation. 01/18 Patient is scheduled for CABG on 01/[address] Gillespie. Blood pressure 116/76, heart rate 73, pulse ox 97% on room air. Patient denies chest pain or pressure. He remains on Heparin gtt. He plans to walk in the [place] later today. 01/19 Patient states he is doing well no chest pain. He remains on heparin drip with anticipated surgery for tomorrow. He is utilizing incentive spirometry and reaching 3500 mL. Blood pressure 101/62, heart rate 71, pulse ox 95% on room air. Physical Examination Gen: This is a 78-year-old male in no acute distress HEENT: Head is atraumatic, normocephalic. Pupils equal, round. Sclerae is anicteric. LUNGS: Clear to auscultation. No wheezes or rhonchi. No intercostal retractions. HEART: Regular rate and rhythm. Systolic murmur at the right upper sternal border. ABDOMEN: Soft. Bowel sounds are present. No masses. No tenderness. EXTREMITIES: No pedal edema. No calf tenderness. NEUROLOGICAL: Patient is awake, alert and oriented x3. Assessment Acute coronary syndrome with acute non-ST elevation myocardial infarction with triple-vessel disease History of pulmonary embolism. Multiple comorbid conditions including hypertension and dyslipidemia Plan Continue the current medical regimen including the current dose of heparin IV Anti-ischemic medication including beta-richard as well as aspirin and statin Continue plan for CABG scheduled for 01/20. Nurse practitioner note has been reviewed, I agree with documented findings and plan of care. Patient was seen and examined. Objective - Vital Signs Vital signs: Vital Signs Temp 97.4 F L 01/20/24 11:57 Pulse 71 01/20/24 11:57 Resp 16 01/20/24 11:57 BP 101/62 01/20/24 11:57 Pulse Ox 95 01/20/24 11:57 FiO2 Intake & Output 01/19/24 01/20/24 01/20/24 18:59 06:59 18:59 Intake Total 702.384 730 Balance 702.384 730 Weight 88.2 kg Intake: Intake, IV Titration 226.384 250 Amount Heparin Sod,Pork in 0.45% 226.384 250 NaCl 25,000 unit In 0.45 % NaCl 1 250ml.bag @ 11. 9168 UNITS/KG/HR 10 mls/ hr IV .Q24H [facility] Rx#: [id number] Oral 476 [id number] Other: # Voids 1 1 - Labs CBC & Chem 7: 01/19/24 08:51 01/19/24 08:51 Labs: Abnormal Lab Results - Last 24 Hours (Table) 01/19/24 01/20/24 Range/Units 10:10 07:51 APTT 55.9 H (22.0-30.0) sec Crossmatch See Detail Microbiology - Last 24 Hours (Table) 01/18/24 13:30 Nasal Screen MRSA/MSSA - Final Nasal Swab
--- NOTE | 2024-01-20 16:36 | P.PN ---
Subjective Progress Note Date: 01/20/24 (delayed charting seen at 1400) Patient is a 78-year-old male with chronic low back pain, prior pulmonary embolism, and rheumatoid arthritis who initially was transferred from an outside facility for evaluation of chest pain. On arrival here he had mildly elevated troponins that maxed at 0.50. Cardiology was consulted. He underwent an echocardiogram which demonstrated ejection fraction of 40 to 45% with mildly reduced global left ventricular systolic function and no regional wall motion ab normalities. Cardiology was consulted. He underwent cardiac catheterization on 01/16 which revealed severe triple-vessel coronary artery disease with low left- sided filling pressures. CT surgery was subsequently consulted and plan is for cardiac bypass on 01/20. Patient seen and examined at bedside with present. Doing well. No additional chest pain or shortness of breath. No complaints currently. Vital signs reviewed General: Nontoxic, no distress, appears at stated age Cardiovascular: S1S2 reg, no murmur Lungs: CTA bilateral, no rhonchi, no rales, no accessory muscle use Abdominal: Soft, nontender to palpation, no guarding Ext: No gross muscle atrophy, no edema b/l lower extremities, no contractures Neuro: CN II-XI grossly intact, no focal neuro deficits Psych: Alert, oriented, appropriate affect Assessment/Plan: Non-ST segment elevated myocardial infarction Severe triple-vessel coronary artery disease Dyslipidemia Left carotid stenosis Cardiomyopathy, likely ischemic with EF 40-45% -Pulmonary note reviewed: Continue current care, encourage pulmonary hygiene -Cardiology note reviewed: Continue current care -CT surgery note reviewed: Off-pump coronary artery bypass grafting x 3 on 01/21/2024 -Aspirin 81 mg daily -Lipitor 20 mg at night (current LDL 71) -Metoprolol succinate 50 mg daily Anemia, mild -Given that the patient will be undergoing open heart surgery we will check iron studies. Constipation -Dulcolax 5 mg p.o. daily as needed Rheumatoid arthritis Chronic back pain -Hold methotrexate -Continue with Elavil 25 mg in the morning and 75 mg at night, [place] 10/325 every 6 hours as needed for pain, Cymbalta 30 mg daily History of pulmonary embolism -Patient was holding Eliquis for epidural injection, CTA was negative for pulmonary embolism. Continue with heparin drip while Eliquis on hold Chronic: Anemia GERD Imaging: None new Lower extremity arterial Doppler: Normal ABEL Carotid artery Doppler: Severe proximal left ICA stenosis > 70% Echocardiogram: Ejection fraction 40 to 45%, mild reduced global left ventricular systolic function Data Review: Labs reviewed from today include iron studies which are unremarkable. DVT prophylaxis: Heparin gtt Anticipated discharge date: Pending Clinical Course Anticipated discharge place: Pending Clinical Course This dictation was prepared using [employer] voice recognition software. Though every attempt is made to correct errors during dictation some may still exist. Objective - Vital Signs Vital signs: Vital Signs Temp 97.3 F L 01/20/24 15:29 Pulse 66 01/20/24 15:29 Resp 16 01/20/24 15:29 BP 134/77 01/20/24 15:29 Pulse Ox 100 01/20/24 15:29 FiO2 Intake & Output 01/19/24 01/20/24 01/20/24 18:59 06:59 18:59 Intake Total 702.384 970 Balance 702.384 970 Weight 88.2 kg Intake: Intake, IV Titration 226.384 250 Amount Heparin Sod,Pork in 0.45% 226.384 250 NaCl 25,000 unit In 0.45 % NaCl 1 250ml.bag @ 11. 9168 UNITS/KG/HR 10 mls/ hr IV .Q24H SUSAN Rx#: [id number] Oral 476 720 Other: # Voids 1 1 - Labs CBC & Chem 7: 01/19/24 08:51 01/19/24 08:51 Labs: Abnormal Lab Results - Last 24 Hours (Table) 01/19/24 01/20/24 Range/Units 10:10 07:51 APTT 55.9 H (22.0-30.0) sec Crossmatch See Detail Microbiology - Last 24 Hours (Table) 01/18/24 13:30 Nasal Screen MRSA/MSSA - Final Nasal Swab
[2024-01-21] MEDS: ASPIRIN 325 MG TAB PO ONE (04:58)
[2024-01-21] MEDS: ATORVASTATIN 10 MG TAB PO ONE (04:58)
[2024-01-21] MEDS: METOPROLOL TARTRATE 12.5 MG TAB PO ONE (04:58)
[2024-01-21] MEDS ORDERED: PHENYLEPHRINE 10 MG/ML VIAL IV ONE (05:00)
[2024-01-21] MEDS ORDERED: INSULIN REGULAR 100 UNIT in SODIUM CHLORIDE 0.9% 100 ML IV SCH (05:00)
[2024-01-21] MEDS ORDERED: PAPAVERINE 360 MG in SODIUM CHLORIDE 0.9% 90 ML IV ONE (05:00)
[2024-01-21] MEDS ORDERED: LACTATED RINGERS 1,000 ML IV SCH (05:00)
[2024-01-21] MEDS ORDERED: SODIUM BICARB 8.4% 50 ML SYR (1 MEQ/ML) IV ONE (05:00)
[2024-01-21] MEDS ORDERED: NITROGLYCERIN-D5W PMX 25 MG/250 ML BTL IV ONE (05:00)
[2024-01-21] MEDS ORDERED: ELECTROLYTE-A SOLUTION 1,000 ML with POTASSIUM CHLORIDE 40 MEQ, MAGNESIUM SULFATE 16 ME... IV ONE (05:00)
[2024-01-21] MEDS ORDERED: PROTAMINE SULFATE 250 MG in EMPTY BAG 1 BAG IV ONE (05:00)
[2024-01-21] MEDS ORDERED: ALBUMIN HUMAN 25% 50 ML in EMPTY BAG 1 BAG IVPB ONE (05:00)
[2024-01-21] MEDS ORDERED: HEPARIN SODIUM 1,000 UN/ML (10ML VL) IV ONE (05:00)
[2024-01-21] MEDS ORDERED: HEPARIN SODIUM,PORCINE (1 ML) 5,000 UNIT in SODIUM CHLORIDE 0.9% 500 ML 500 ML IV ONE (05:00)
[2024-01-21] MEDS ORDERED: TRANEXAMIC ACID 2,000 MG in SODIUM CHLORIDE 0.9% 80 ML IV ONE (05:00)
[2024-01-21] MEDS ORDERED: ceFAZolin 1,000 MG in SODIUM CHLORIDE 0.9% IRRIGATIO 1,000 ML IRRIGATION ONE (05:00)
[2024-01-21] MEDS ORDERED: CLEVIDIPINE BUTYRATE 25 MG in EMPTY BAG 1 BAG IV SCH (05:00)
[2024-01-21] MEDS ORDERED: MAGNESIUM SULFATE 16.24 MEQ in EMPTY SYRINGE 1 SYR IV ONE (05:00)
[2024-01-21] MEDS ORDERED: CALCIUM CHLORIDE 100 MG/ML 10 ML SYRINGE IVP ONE (05:00)
[2024-01-21] MEDS ORDERED: DILTIAZEM 125 MG in SODIUM CHLORIDE 0.9% 100 ML IV SCH (05:00)
[2024-01-21] MEDS ORDERED: PROTAMINE SULFATE 10 MG/ML 25 ML VIAL IV ONE ×2 (05:00→08:14)
[2024-01-21] MEDS ORDERED: ELECTROLYTE-A SOLUTION 1,000 ML with POTASSIUM CHLORIDE 100 MEQ, MAGNESIUM SULFATE 16 M... IV ONE (05:00)
[2024-01-21] MEDS ORDERED: ALBUMIN HUMAN 5% 500 ML in EMPTY BAG 1 BAG IVPB ONE ×6 (05:00)
[2024-01-21] MEDS ORDERED: MANNITOL 25% 12.5 GM/50 ML VIAL IV ONE ×2 (05:00)
[2024-01-21] MEDS ORDERED: NITROGLYCERIN-D5W PMX 50 MG in DEXTROSE/WATER 1 250ML.BAG IV SCH (05:00)
[2024-01-21] MEDS ORDERED: PHENYLEPHRINE 40 MG in SODIUM CHLORIDE 0.9% 250 ML IV ONE (05:00)
[2024-01-21] MEDS ORDERED: CHLORHEXIDINE GLUCONATE 15 ML CUP MUCOUS MEM ONE (05:00)
[2024-01-21] MEDS: SODIUM CHLORIDE 0.9% 1,000 ML IV ONE (06:23)
[2024-01-21 06:28] LABS: Glucose,Whole Blood 88 mg/dL (70-110)
[2024-01-21] MEDS ORDERED: WATER FOR INJECTION, STERILE 10 ML VIAL IV ONE (08:14)
[2024-01-21] MEDS ORDERED: ePHEDrine 50 MG/ML 1 ML VIAL ONE (08:14)
[2024-01-21] MEDS ORDERED: GLYCOPYRROLATE 0.2 MG/ML 2 ML VIAL ONE (08:14)
[2024-01-21] MEDS ORDERED: LIDOCAINE 2% SYG (PF) 100 MG/5 ML ONE (08:14)
[2024-01-21] MEDS ORDERED: MIDAZOLAM HCL 10 MG/10 ML VIAL ONE (08:14)
[2024-01-21] MEDS ORDERED: PHENYLEPHRINE-0.9% NACL SYG 1,000 MCG/10 ML SYRINGE ONE (08:14)
[2024-01-21] MEDS ORDERED: fentaNYL (PF) 50 MCG/ML 50 ML VIAL ONE (08:14)
[2024-01-21] MEDS ORDERED: PROPOFOL 10 MG/ML 20 ML VIAL IV ONE (08:14)
[2024-01-21] MEDS ORDERED: HEPARIN SODIUM,PORCINE 10,000 UNIT/ML 1 ML VIAL ONE (08:14)
[2024-01-21] MEDS ORDERED: VECURONIUM 10 MG VIAL IV ONE (08:14)
[2024-01-21] MEDS ORDERED: ALBUMIN HUMAN 5% (25gm) 500 ML VIAL IVPB ONE (08:14)
[2024-01-21] MEDS ORDERED: HEPARIN SODIUM,PORCINE 5,000 UNIT/ML 1 ML VIAL ONE (08:14)
[2024-01-21] MEDS: SODIUM CHLORIDE 0.9% 50 ML with ceFAZolin 2,000 MG IV ONE (09:00)
[2024-01-21] MEDS: PAPAVERINE 360 MG in SODIUM CHLORIDE 0.9% 90 ML IV ONE (09:00)
[2024-01-21] MEDS: ceFAZolin 1,000 MG in SODIUM CHLORIDE 0.9% 1,000 ML IRRIGATION ONE (09:00)
[2024-01-21] MEDS: SODIUM CHLORIDE 0.9% 500 ML 500 ML with HEPARIN SODIUM,PORCINE (1 ML) 5,000 UNIT IV ONE (09:00)
[2024-01-21 09:26] LABS: ABG Glucose Whole Blood 89 mg/dL (75-99); ABG HCO3 26 mmol/L (21-25); ABG Hematocrit 31 % (34.0-46.0); ABG Ionized Calcium 4.8 mg/dL (4.5-5.3); ABG Lactic Acid Whole Blood 1.8 mmol/L (0.5-1.6); ABG PCO2 44 mmHg (35-45); ABG PH 7.38 (7.35-7.45); ABG PO2 229 mmHg (83-108); ABG Sodium Whole Blood 144 mmol/L (135-146)
[2024-01-21 10:52] LABS: ABG Base Excess -0.4 mmol/L; ABG Glucose Whole Blood 95 mg/dL (75-99); ABG HCO3 24 mmol/L (21-25); ABG Hematocrit 26 % (34.0-46.0); ABG Ionized Calcium 4.6 mg/dL (4.5-5.3); ABG Lactic Acid Whole Blood 1.4 mmol/L (0.5-1.6); ABG PCO2 38 mmHg (35-45); ABG PH 7.41 (7.35-7.45); ABG PO2 190 mmHg (83-108); ABG Potassium Whole Blood 3.8 mmol/L (3.4-4.5); ABG Sodium Whole Blood 145 mmol/L (135-146)
[2024-01-21 11:19] LABS: ABG Base Excess -0.2 mmol/L; ABG Glucose Whole Blood 99 mg/dL (75-99); ABG HCO3 24 mmol/L (21-25); ABG Hematocrit 26 % (34.0-46.0); ABG Ionized Calcium 4.6 mg/dL (4.5-5.3); ABG Lactic Acid Whole Blood 1.3 mmol/L (0.5-1.6); ABG PCO2 37 mmHg (35-45); ABG PH 7.43 (7.35-7.45); ABG PO2 236 mmHg (83-108); ABG Potassium Whole Blood 4.1 mmol/L (3.4-4.5); ABG Sodium Whole Blood 144 mmol/L (135-146)
[2024-01-21 11:36] LABS: ABG Oxygen Saturation 99.3 % (94-97)
[2024-01-21 11:37] LABS: ABG Oxygen Saturation 99.3 % (94-97)
[2024-01-21 11:38] LABS: ABG Oxygen Saturation 99.4 % (94-97)
[2024-01-21 11:52] LABS: ABG Base Excess -0.7 mmol/L; ABG Glucose Whole Blood 97 mg/dL (75-99); ABG HCO3 24 mmol/L (21-25); ABG Hematocrit 25 % (34.0-46.0); ABG Ionized Calcium 4.5 mg/dL (4.5-5.3); ABG Lactic Acid Whole Blood 1.6 mmol/L (0.5-1.6); ABG PCO2 37 mmHg (35-45); ABG PH 7.42 (7.35-7.45); ABG PO2 242 mmHg (83-108); ABG Potassium Whole Blood 4.3 mmol/L (3.4-4.5); ABG Sodium Whole Blood 143 mmol/L (135-146); Allen Test Performed? Yes
[2024-01-21 12:50] LABS: ABG Oxygen Saturation 99.4 % (94-97)
[2024-01-21 12:57] LABS: ABG Base Excess -1.2 mmol/L; ABG Glucose Whole Blood 109 mg/dL (75-99); ABG HCO3 23 mmol/L (21-25); ABG Hematocrit 26 % (34.0-46.0); ABG Ionized Calcium 4.5 mg/dL (4.5-5.3); ABG Lactic Acid Whole Blood 1.4 mmol/L (0.5-1.6); ABG Oxygen Saturation 98.5 % (94-97); ABG PCO2 38 mmHg (35-45); ABG PO2 108 mmHg (83-108); ABG Potassium Whole Blood 3.9 mmol/L (3.4-4.5); ABG Sodium Whole Blood 143 mmol/L (135-146); Allen Test Performed? Yes
[2024-01-21] MEDS ORDERED: BENZOCAINE/MENTHOL LOZENG 1 EACH LOZENGE MUCOUS MEM PRN (13:14)
[2024-01-21] MEDS ORDERED: DEXTROSE 5% IN WATER 100 ML with AMIODARONE 150 MG IV PRN (13:14)
[2024-01-21] MEDS ORDERED: hydrALAZINE HCL 20 MG/ML 1 ML VIAL IVP PRN (13:14)
[2024-01-21] MEDS ORDERED: DEXTROSE 50% SYRINGE 50 ML IVP PRN ×2 (13:14)
[2024-01-21] MEDS ORDERED: IPRATROPIUM-ALBUTEROL 3 ML NEB INHALATION PRN (13:14)
[2024-01-21] MEDS ORDERED: Potassium Replacement Protocol 1 EACH MISC MISCELLANE PRN (13:14)
[2024-01-21] MEDS ORDERED: AMIODARONE 360 MG in DEXTROSE 5% IN WATER 200 ML IV PRN (13:14)
[2024-01-21] MEDS ORDERED: Magnesium Replacement Protocol 1 EACH MISC MISCELLANE PRN (13:14)
[2024-01-21] MEDS ORDERED: AMIODARONE 450 MG in DEXTROSE 5% IN WATER 250 ML IV PRN (13:14)
--- NOTE | 2024-01-21 13:35 | P.OP ---
Date of Procedure: 01/21/24 Preoperative Diagnosis: 1. 3v CAD, NSTEMI 2. Severe left carotid artery stenosis 3. DVT/PE 4. RA 5. GERD 6. HLD 7. OA, back pain Postoperative Diagnosis: Same Procedure(s) Performed: 1. Off pump coronary artery bypass grafting x 3. Left internal thoracic artery (in-situ) to left anterior descending coronary artery. Saphenous vein from aorta to distal right coronary artery. Saphenous vein from aorta to obtuse marginal artery #1. 2. Left atrial appendage ligation using #35mm AtriClip 3. Endoscopic right greater saphenous vein harvest 4. Graft flow measurements using the Medi-Stim flow meter system 5. Excision of chest wall lesion 6. Trans-esophageal echo Implants: #35 AtriClip Anesthesia: GETA Surgeon: Camden Gillespie Peace Officer #1: Lefty Lujan Estimated Blood Loss (ml): 250 Pathology: other (chest wall lesion) Condition: critical Disposition: ICU Indications for Procedure: This patient is a 78 year-old M with the history noted above who presented to the hospital with chest pain. He was diagnosed with NSTEMI and coronary angiography revealed significant stenosis of the RCA and left main coronary artery as well as ostial OM1 lesion. His sts risk of morbidity and mortality was discussed with him and CABG was recommended. He was in agreement to proceed. Operative Findings: BRADY 1.5mm good conduit. LAD 1.6mm good target. KIDD-LAD Flow 12ml/min, P.I. 6.2 Saphenous vein 2.5mm good conduit. RCA 2.5mm good target. GSV-RCA Flow 12ml/min, P.I. 7.8 OM#1 1.5mm good target. GSV-OM1 Flow 35ml/min, P.I. 4.1 Description of Procedure: The patient underwent central line, arterial line, and [place] Jeovanny catheter placement in the pre-operative suite by the anesthesia team. The patient was then brought to the operating room and placed in the supine position. General anesthesia was induced and the patient was prepped from the chin to the ankles in the usual sterile fashion. A time-out was performed and antibiotics were given. A midline incision was made on the chest and carried down to bone. A median sternotomy was performed. Hemostasis on the bone was achieved using electrocautery and small amount of bone wax. The left pleura was entered and the left internal thoracic artery was harvested in a skeletonized fashion. Simultaneously a physician political science research assistant harvested the right greater saphenous vein in an endoscopic fashion. The patient was systemically heparinized and the BRADY was transected and placed in a papaverine jacuzzi. A left sided chest tube was placed. The pericardium was incised in a reverse T-fashion and a pericardial cradle was created. The right pleura was opened. Stay sutures were placed. #35mm AtriClip was placed on the left atrial appendage. With ACT > 250, the octopus sabilizer was placed on the mid LAD which was a good target. An ateriorotomy was made and 1.5mm shunt inserted. An end to side anastomosis between the BRADY and LAD was performed using a running 7-0 prolene. The shunt was removed prior to tieing down the suture. Next stay sutures were placed near the left inferior pulmonary vein and oblique sinus. At this point, the lateral wall was exposed and the obtuse marginal #1 was identified and stabilized. The OM was opened and 1.5mm flow through was inserted. It was a good target. An end to side anastomosis was created between the saphenous vein and obtuse marginal using a running 7-0 prolene. Next the inferior wall was exposed. Silastic was placed around this distal right coronary artery, it was opened and 2.5mm flow through inserted. An end to side anastomosis was created between the GSV and RCA using a running 7-0 prolene. Next, the heartstring device was used to create aortotomy x 2. The saphenous vein was fastened to the ascending aorta using a running 5-0 prolene x 2. The heartstring was removed in entirety prior to tieing down the suturex 2. At this point, graft flows were measured which were excellent. At this point, protamine was given and hemostasis was secured. A 32F chest tube and 19F ferdinand were placed in the mediastinum and right pleura respectively. Temporary ventricular wires were placed on the RV. The pericardium was re- approximated partially and the sternum was closed with pioneer cables and layers of suture. The leg was closed in layers as well. The patient tolerated the procedure without any significant hypotension and was transferred to CVICU in critical condition on only nitro gtt.
[2024-01-21 13:36] LABS: Glucose,Whole Blood 103 mg/dL (70-110)
[2024-01-21] MEDS: IPRATROPIUM-ALBUTEROL 3 ML NEB ONE (13:43)
[2024-01-21] MEDS: IPRATROPIUM-ALBUTEROL 3 ML NEB INHALATION SCH ×2 (13:43→20:04)
[2024-01-21 13:46] LABS: Glucose,Whole Blood 116 mg/dL (70-110)
[2024-01-21] MEDS: ALBUMIN HUMAN 5% 250 ML in EMPTY BAG 1 BAG IVPB PRN (13:50)
[2024-01-21 14:01] LABS: Ionized Calcium 4.4 mg/dL (4.5-5.3)
[2024-01-21 14:06] LABS: ABG Base Excess -0.4 mmol/L; ABG HCO3 24 mmol/L (21-25); ABG PCO2 36 mmHg (35-45); ABG PH 7.43 (7.35-7.45); ABG PO2 356 mmHg (83-108); ABG TCO2 25 mmol/L (19-24)
[2024-01-21 14:07] LABS: Basophils % (A) 0 %; Eosinophils # (A) 0.1 k/uL (0-0.7); Eosinophils % (A) 2 %; HCT 27.3 % (39.0-53.0); Lymphocytes # (A) 1.1 k/uL (1.0-4.8); Lymphocytes % (A) 16 %; MCH 30.8 pg (25.0-35.0); MCHC 31.2 g/dL (31.0-37.0); MCV 98.7 fL (80.0-100.0); Macrocytosis Slight; Monocytes # (A) 0.3 k/uL (0-1.0); Monocytes % (A) 4 %; Neutrophils # (A) 5.6 k/uL (1.3-7.7); Neutrophils % (A) 78 %; Platelet Count 125 k/uL (150-450); RBC 2.77 m/uL (4.30-5.90); RDW 15.9 % (11.5-15.5); WBC 7.2 k/uL (3.8-10.6)
[2024-01-21 14:09] LABS: ALT 13 U/L (4-49); AST 25 U/L (17-59); African American GFR (CKD) >90 (>60 ml/min/1.73 sqM); Albumin 2.7 g/dL (3.5-5.0); Alkaline Phosphatase 59 U/L (38-126); Anion Gap 7 mmol/L; Blood Urea Nitrogen 10 mg/dL (9-20); Calcium 7.7 mg/dL (8.4-10.2); Carbon Dioxide 20 mmol/L (22-30); Chloride 113 mmol/L (98-107); Glucose 107 mg/dL (74-99); Magnesium 1.5 mg/dL (1.6-2.3); Non-African American GFR(CKD) >90 (>60 ml/min/1.73 sqM); Potassium 3.9 mmol/L (3.5-5.1); Sodium 140 mmol/L (137-145); Total Bilirubin 0.4 mg/dL (0.2-1.3); Total Protein 4.5 g/dL (6.3-8.2)
[2024-01-21 14:13] LABS: HGB 8.5 gm/dL (13.0-17.5)
[2024-01-21 14:14] LABS: INR 1.2 (<1.2); Partial Thromboplastin Time 33.2 sec (22.0-30.0); Prothrombin Time 12.7 sec (10.0-12.5)
[2024-01-21] MEDS: LACTATED RINGERS 1,000 ML IV SCH (14:22)
[2024-01-21] MEDS: NITROGLYCERIN-D5W PMX 50 MG in DEXTROSE/WATER 1 250ML.BAG IV SCH (14:23)
[2024-01-21] MEDS: CLEVIDIPINE BUTYRATE 25 MG in EMPTY BAG 1 BAG IV SCH (14:27)
[2024-01-21] MEDS: MAGNESIUM SULFATE-D5W PMX 1 GM in DEXTROSE/WATER 1 100ML.BAG IVPB SCH (14:29)
[2024-01-21 14:52] LABS: Glucose,Whole Blood 112 mg/dL (70-110)
[2024-01-21] MEDS: POTASSIUM CHLORIDE 10 MEQ in WATER FOR INJECTION 1 100ML.BAG IVPB SCH (15:11)
--- NOTE | 2024-01-21 15:23 | P.ANPRN ---
Procedure Note - Anesthesia - Invasive Line Right Central Line Time Out Performed: Yes (0759) Date of Procedure: 01/21/24 Time of Procedure: 08:00 Location of Patient: Phase I Preparation: Sterile Prep, Sterile Dressing Central Line Location: Internal Jugular (right IJ Cordis) Ultrasound Used: Yes Purpose - Visualization and Identification of Vasculature: Yes Needle Guage: 18 angio Image Stored and Saved: Yes Narrative: Invasive line placement per sterile protocol utilized. Anesthesia note Procedure: Right internal jugular central venous catheter insertion: 8.5-[place] Cordis Sterile protocol followed. Right neck prepped. Ultrasound used. Lidocaine 1% used. Using ultrasound local anesthetic was instilled site over right Internal Jugular vein. Angiocath was used to gain access via ultrasound. Once free flow non-pulsatile blood flow was confirmed, 12 inch extension tubing was then placed on Angiocath. Once central venous pressure was confirmed, J-wire was then placed through Angiocath. Angiocath was then withdrawn. Local was instilled at J-wire site. Small skin beatriz was then made with provided sterile scalpel. 8.5- [place]oth[place] Cordis was then inserted over the wire while maintaining control of wire at all times. Uneventful insertion with dilation. Free flow nonpulsatile blood flow through Cordis. Hooked up to IV tubing. Secured with suture. Dressings applied. Drapes Removed. Attempts x1.
--- NOTE | 2024-01-21 15:24 | P.ANPRN ---
Procedure Note - Anesthesia - Invasive Line Right [place] Jeovanny Time Out Performed: Yes (0759) Date of Procedure: 01/21/24 Time of Procedure: 08:09 Location of Patient: Phase I Preparation: Sterile Prep, Sterile Dressing [place] Jeovanny Line Location: Internal Jugular (right IJ PA Catheter) Ultrasound Used: No Purpose - Visualization and Identification of Vasculature: No Image Stored and Saved: No Narrative: Invasive line placement per sterile protocol utilized. Anesthesia note Procedure right [place]-Jeovanny catheter placed through right internal jugular central venous catheter Sterile protocol maintained from previous procedure. [place]-Jeovanny catheter sterilely placed in sheath and flushed prior to insertion. After advancing 15 cm [place]-Jeovanny catheter was then slowly inserted with balloon up. Advanced through CVP, RV to PA waveform. [place]-Jeovanny catheter wedged around 57 cm. Ball oon down. Catheter withdrawn 7 cm. No wedge. Proximal and distal sites locked on sheath. Attempts x1. Sterile drapes removed and dressings applied.
--- NOTE | 2024-01-21 15:26 | P.ANPRN ---
Procedure Note - Anesthesia - SHAREE Intraop Pre Bypass SHAREE Intraop - Anesthesia Indication: CAD Date of Procedure: 01/21/24 Pre-operative Diagnosis: cad Post-operative Diagnosis: CAD Surgeon: Camden Gillespie Ejection Fraction: Other (40%) Regional Wall Motion Abnormalities: None R. Ventricle Function: Normal Anatomy: Trileaflet Aortic Stenosis: None Aortic Regurgitation: Trace Mitral Stenosis: None Mitral Regurgitation: Trace (central with a mild posterior angle) Tricuspid Stenosis: None Tricuspid Regurgitation: Trace Pulmonic Stenosis: None Pulmonic Regurgitation: None R. Atrial Dilation: No R. Atrial PFO: No L. Atrial Dilation: No Aortic Dissection: No Aortic Calcification: None Plural Effusion: None
--- NOTE | 2024-01-21 15:26 | P.ANPRN ---
Procedure Note - Anesthesia - SHAREE Intraop Post Bypass SHAREE Intraop Post Bypass Procedure Performed: CABG - offpump Ejection Fraction: Other (40%) Regional Wall Motion Abnormalities: None R. Ventricle Function: Normal Aortic Valve: Unchanged Mitral Valve: Unchanged Tricuspid: Unchanged Pulmonic: Unchanged Aortic Dissection: No
[2024-01-21] MEDS: CALCIUM GLUCONATE IN NACL 2 GM in SALINE 1 100ML.BAG IVPB PRN (15:55)
--- NOTE | 2024-01-21 15:55 | P.PN ---
Subjective Progress Note Date: 01/21/24 Patient is a 78-year-old male with chronic low back pain, prior pulmonary embolism, and rheumatoid arthritis who initially was transferred from an outside facility for evaluation of chest pain. On arrival here he had mildly elevated troponins that maxed at 0.50. Cardiology was consulted. He underwent an echocardiogram which demonstrated ejection fraction of 40 to 45% with mildly reduced global left ventricular systolic function and no regional wall motion abnormalities. Cardiology was consulted. He underwent cardiac catheterization on 01/16 which revealed severe triple-vessel coronary artery disease with low left-sided filling pressures. CT surgery was subsequently consulted and plan is for cardiac bypass on 01/20. 01/20 Patient was seen and examined. Underwent off pump CABG x 3 today. Currently intubated. Receiving Clevidipine drip 2 mls/hr, Nitroglycerin drip at 15 mcg/min, normal saline at 40 cc/hr. Sedation includes propofol at 40 mcg/kg/min. CBC Hg 8.5 Hct 27.3 Plt 125. PT 12.7 INR 1.2 APTT 33.2. ABG pH 7.43 pCO2 36. CMP Cl 113, bicarb 20, Cr 0.53, glu 107, Ca 7.7, ionized Ca 4.4, alb 2.7. Mag 1.5. General: Intubated Derm: warm, dry, chest wall dressing c/d/i Head: atraumatic, normocephalic, symmetric, R IJ Eyes: no lid lag, anicteric sclera Mouth: no lip lesion, mucus membranes moist Cardiovascular: S1S2 reg, no murmur, Mediastinal/R/L chest tube intact Lungs: Decreased BS bilateral, no rhonchi, no rales , no accessory muscle use Abdominal: soft, nontender to palpation, no guarding, no appreciable organomegaly Ext: no gross muscle atrophy, no edema, no contractures Neuro: Intubated Psych: Intubated Based on my assessment of this patient, this patient meets a high complexity level of care. Acute blood loss anemia: Expected result of surgery. Transfuse if Hg < 7. NSTEMI: ASA 325 mg PO QD. Lipitor 40 mg PO QD. Plavix 75 mg PO QD. Metoprolol 12.5 mg PO BID. Triple vessel CAD status post CABG x 3 POD 0 Acute hypoxic respiratory failure: Expected post CABG. Wean sedation. Discussed with Leia HERRREA, plans for extubation today. Hypomagnesemia; 2g Mag sulfate ordered today. Left carotid stenosis HFrEF: EF 40-45%. Rheumatoid arthritis: Hold MTX. Continue with Elavil 25 mg in the morning and 75 mg at night, [place] 10/325 every 6 hours as needed for pain, Cymbalta 30 mg daily. Chronic back pain History of pulmonary embolism GERD CODE STATUS: FULL CODE DVT Prophylaxis: Heparin GI Prophylaxis: Protonix Designated medical POA if patient is not able to make medical decisions for themselves: I have reviewed the following [employer] portal consultant notes: Operative note. I have reviewed the results of the following tests: CBC, BMP. Mag I have ordered the following tests: Agree with daily CBC, CMP, Mag, ionized Ca, CXR. I have discussed the care of this patient with the following independent historian: I have independently interpreted the following test below: I have discussed the management of this patient with the following physician: Leia HERRERA Objective - Vital Signs Vital signs: Vital Signs Temp 95 F L 01/21/24 15:00 Pulse 73 01/21/24 15:00 Resp 24 01/21/24 15:00 BP 135/81 01/21/24 06:24 Pulse Ox 100 01/21/24 15:00 FiO2 50 01/21/24 15:51 Intake & Output 01/20/24 01/21/24 01/21/24 18:59 06:59 18:59 Intake Total 1210 400 488.558 Output Total 1195 Balance 1210 400 -706.442 Weight 88.2 kg Intake: IV 400 131 0.9ns pressure bag 18 co/ci 60 Intake, IV Titration 250 357.558 Amount Albumin Human 5% 500 ml 250 In Empty Bag 1 bag @ 250 mls/hr IVPB ONCE ONE Rx#: [id number] Clevidipine Butyrate 25 2.233 mg In Empty Bag 1 bag @ 1 MG/HR 2 mls/hr IV .Q24H SUSAN Rx#:[id number] Heparin Sod,Pork in 0.45% 250 NaCl 25,000 unit In 0.45 % NaCl 1 250ml.bag @ 11. 9168 UNITS/KG/HR 10 mls/ hr IV .Q24H SUSAN Rx#: [id number] Lactated Ringers 1,000 ml 100 @ 50 mls/hr IV .Q20H SUSAN Rx#:[id number] Nitroglycerin-D5w Pmx 50 5.325 mg In Dextrose/Water 1 250ml.bag @ 5 MCG/MIN 1.5 mls/hr IV .Q24H SUSAN Rx#: [id number] Oral 960 Output: Chest Tube Drainage 135 Chest Tube Right Pleural/ 100 Mediastinal Pleural Catheter Left 35 Urine 810 Estimated Blood Loss 250 Other: # Voids 3 # Bowel Movements 2 ABP, PAP, CO, CI - Last Documented Arterial Blood Pressure 148/76 Pulmonary Artery Pressure 35/22 Cardiac Output 5.7 Cardiac Index 2.8 - Labs CBC & Chem 7: 01/21/24 13:45 01/21/24 13:45 Labs: Abnormal Lab Results - Last 24 Hours (Table) 01/19/24 01/21/24 01/21/24 Range/Units 10:10 09:26 10:53 RBC (4.30-5.90) m/uL Hgb (13.0-17.5) gm/dL Hct (39.0-53.0) % RDW (11.5-15.5) % Plt Count (150-450) k/uL PT (10.0-12.5) sec INR (<1.2) APTT (22.0-30.0) sec ABG pO2 229 H 190 H (83-108) mmHg ABG HCO3 26 H (21-25) mmol/L ABG Total CO2 (19-24) mmol/L ABG O2 Saturation 99.3 H 99.3 H (94-97) % ABG Hematocrit 31 L 26 L (34.0-46.0) % ABG Glucose (75-99) mg/dL ABG Lactic Acid 1.8 H (0.5-1.6) mmol/L Hemoglobin 10.1 L 8.5 L (13.0-17.5) gm/dL Chloride (98-107) mmol/L Carbon Dioxide (22-30) mmol/L Creatinine (0.66-1.25) mg/dL Glucose (74-99) mg/dL POC Glucose (mg/dL) (70-110) mg/dL Calcium (8.4-10.2) mg/dL Ionized Calcium Dickson (4.5-5.3) mg/dL Magnesium (1.6-2.3) mg/dL Total Protein (6.3-8.2) g/dL Albumin (3.5-5.0) g/dL Arterial Blood Glucose (75-99) mg/dL Crossmatch See Detail 01/21/24 01/21/24 01/21/24 Range/Units 11:19 11:53 12:57 RBC (4.30-5.90) m/uL Hgb (13.0-17.5) gm/dL Hct (39.0-53.0) % RDW (11.5-15.5) % Plt Count (150-450) k/uL PT (10.0-12.5) sec INR (<1.2) APTT (22.0-30.0) sec ABG pO2 236 H 242 H (83-108) mmHg ABG HCO3 (21-25) mmol/L ABG Total CO2 (19-24) mmol/L ABG O2 Saturation 99.4 H 99.4 H 98.5 H (94-97) % ABG Hematocrit 26 L 25 L 26 L (34.0-46.0) % ABG Glucose 109 H (75-99) mg/dL ABG Lactic Acid (0.5-1.6) mmol/L Hemoglobin 8.3 L 8.1 L 8.5 L (13.0-17.5) gm/dL Chloride (98-107) mmol/L Carbon Dioxide (22-30) mmol/L Creatinine (0.66-1.25) mg/dL Glucose (74-99) mg/dL POC Glucose (mg/dL) (70-110) mg/dL Calcium (8.4-10.2) mg/dL Ionized Calcium Dickson (4.5-5.3) mg/dL Magnesium (1.6-2.3) mg/dL Total Protein (6.3-8.2) g/dL Albumin (3.5-5.0) g/dL Arterial Blood Glucose 109 H (75-99) mg/dL Crossmatch 01/21/24 01/21/24 01/21/24 Range/Units 13:45 13:45 13:45 RBC 2.77 L (4.30-5.90) m/uL Hgb 8.5 L D (13.0-17.5) gm/dL Hct 27.3 L (39.0-53.0) % RDW 15.9 H (11.5-15.5) % Plt Count 125 L (150-450) k/uL PT 12.7 H (10.0-12.5) sec INR 1.2 H (<1.2) APTT 33.2 H (22.0-30.0) sec ABG pO2 (83-108) mmHg ABG HCO3 (21-25) mmol/L ABG Total CO2 (19-24) mmol/L ABG O2 Saturation (94-97) % ABG Hematocrit (34.0-46.0) % ABG Glucose (75-99) mg/dL ABG Lactic Acid (0.5-1.6) mmol/L Hemoglobin (13.0-17.5) gm/dL Chloride (98-107) mmol/L Carbon Dioxide (22-30) mmol/L Creatinine (0.66-1.25) mg/dL Glucose (74-99) mg/dL POC Glucose (mg/dL) 116 H (70-110) mg/dL Calcium (8.4-10.2) mg/dL Ionized Calcium Dickson (4.5-5.3) mg/dL Magnesium (1.6-2.3) mg/dL Total Protein (6.3-8.2) g/dL Albumin (3.5-5.0) g/dL Arterial Blood Glucose (75-99) mg/dL Crossmatch 01/21/24 01/21/24 01/21/24 Range/Units 13:45 14:01 14:50 RBC (4.30-5.90) m/uL Hgb (13.0-17.5) gm/dL Hct (39.0-53.0) % RDW (11.5-15.5) % Plt Count (150-450) k/uL PT (10.0-12.5) sec INR (<1.2) APTT (22.0-30.0) sec ABG pO2 356 H (83-108) mmHg ABG HCO3 (21-25) mmol/L ABG Total CO2 25 H (19-24) mmol/L ABG O2 Saturation 100.0 H (94-97) % ABG Hematocrit (34.0-46.0) % ABG Glucose (75-99) mg/dL ABG Lactic Acid (0.5-1.6) mmol/L Hemoglobin (13.0-17.5) gm/dL Chloride 113 H (98-107) mmol/L Carbon Dioxide 20 L (22-30) mmol/L Creatinine 0.53 L (0.66-1.25) mg/dL Glucose 107 H (74-99) mg/dL POC Glucose (mg/dL) 112 H (70-110) mg/dL Calcium 7.7 L (8.4-10.2) mg/dL Ionized Calcium [place]icks[place] 4.4 L (4.5-5.3) mg/dL Magnesium 1.5 L (1.6-2.3) mg/dL Total Protein 4.5 L (6.3-8.2) g/dL Albumin 2.7 L (3.5-5.0) g/dL Arterial Blood Glucose (75-99) mg/dL Crossmatch
[2024-01-21 16:03] LABS: Glucose,Whole Blood 147 mg/dL (70-110)
[2024-01-21] MEDS: INSULIN REGULAR 100 UNIT in SODIUM CHLORIDE 0.9% 100 ML IV SCH (16:21)
[2024-01-21] MEDS: HEPARIN SODIUM,PORCINE 5,000 UNIT/ML 1 ML VIAL SQ SCH (16:25)
[2024-01-21 16:48] LABS: Glucose,Whole Blood 131 mg/dL (70-110)
[2024-01-21 16:55] LABS: Basophils % (A) 0 %; Eosinophils # (A) 0.1 k/uL (0-0.7); Eosinophils % (A) 2 %; HCT 29.5 % (39.0-53.0); HGB 9.2 gm/dL (13.0-17.5); Hypochromasia Slight; Lymphocytes # (A) 0.8 k/uL (1.0-4.8); Lymphocytes % (A) 11 %; MCH 30.7 pg (25.0-35.0); MCHC 31.1 g/dL (31.0-37.0); MCV 98.9 fL (80.0-100.0); Macrocytosis Slight; Mean Platelet Volume 8.6; Monocytes # (A) 0.3 k/uL (0-1.0); Monocytes % (A) 4 %; Neutrophils # (A) 6.1 k/uL (1.3-7.7); Neutrophils % (A) 83 %; Platelet Count 147 k/uL (150-450); RBC 2.99 m/uL (4.30-5.90); RDW 15.6 % (11.5-15.5); WBC 7.3 k/uL (3.8-10.6)
[2024-01-21] MEDS: DEXMEDETOMIDINE/0.9% NACL(PMX) 400 MCG in EMPTY BAG 1 BAG IV SCH (17:46)
[2024-01-21 18:20] LABS: Glucose,Whole Blood 114 mg/dL (70-110)
[2024-01-21] MEDS: ACETAMINOPHEN IV (For NPO) 1,000 MG in EMPTY BAG 1 BAG IVPB SCH (18:23)
[2024-01-21 18:53] LABS: Glucose,Whole Blood 125 mg/dL (70-110)
--- NOTE | 2024-01-21 19:39 | XR ---
EXAM: XR chest 1V portable CLINICAL INDICATION:Male, 78 years old with history of Post Operative Cardiac Surgery; [facility] COMPARISON: None. TECHNIQUE: Chest single view. FINDINGS: Lines/tubes/devices: Right IJ approach [place]-Jeovanny catheter with tip over the pulmonary outflow tract. ET tube tip 4.4 cm above the minnie. NG tube extends craniocaudally over the mediastinum with the tip just into the proximal stomach and s cierra hole above the diaphragm; advancement required. Presumed mediastinal drain is present, versus unusually positioned chest tube, courses over the cardi omediastinal silhouette with its tip over the AP window region. Left side chest tube is seen laterally with its tip curving and terminating of the lateral aspect of the superior left upper lobe. Presumed right chest tube with its tip projected the right lung base ju st above the hemidiaphragm. Sternotomy wires and mediastinal clips are present, may be from CABG. Monitor leads over the chest and upper abdomen. Metallic structure in the left upper quadrant may be something extrinsic. Partially seen radiodensities in the abdomen projected over the spine. Cardiomediastinum: Cardiac silhouette appears upper normal in size. Unremarkable mediastinal contours. Suggest aortic atherosclerotic calcifications. Vasculature: Possible mild congestion superimposed on chronic changes. Lungs/pleura: Diffuse coarsening of interstitial lung markings likely chronic changes. Possible mild edema or pneum onitis versus chronic changes in the mid to lower lungs bilaterally. Hazy opacity in the left lung ba se suggests subsegmental atelectasis versus early infiltrate. There could be a small left pleural eff usion. No visualized pneumothorax. Bones/soft tissues: Osseous structures appear grossly intact as seen. Mild degenerative changes of the shoulders and spin e. Regional soft tissues appear unremarkable. IMPRESSION: 1. Postop chest with multiple lines and tubes in place, as above. Recommend several centimeters of a dvancement of the NG tube, followed by reimaging. 2. Pulmonary opacities may represent chronic changes, with mild superimposed edema or pneumonitis po ssible. Left basilar opacity suggesting most likely subsegmental atelectasis, with early infiltrate a lso considered. Possible small left pleural effusion. Follow-up recommended.
[2024-01-21 19:48] LABS: Glucose,Whole Blood 135 mg/dL (70-110)
[2024-01-21 20:00] LABS: Basophils % (A) 0 %; Eosinophils # (A) 0.1 k/uL (0-0.7); Eosinophils % (A) 1 %; HCT 30.3 % (39.0-53.0); HGB 9.2 gm/dL (13.0-17.5); Hypochromasia Slight; Lymphocytes # (A) 0.4 k/uL (1.0-4.8); Lymphocytes % (A) 5 %; MCH 30.4 pg (25.0-35.0); MCHC 30.5 g/dL (31.0-37.0); MCV 99.8 fL (80.0-100.0); Macrocytosis Slight; Mean Platelet Volume 8.1; Monocytes # (A) 0.5 k/uL (0-1.0); Monocytes % (A) 6 %; Neutrophils % (A) 86 %; Platelet Count 154 k/uL (150-450); RBC 3.04 m/uL (4.30-5.90); RDW 15.6 % (11.5-15.5); WBC 8.2 k/uL (3.8-10.6)
[2024-01-21 20:12] LABS: African American GFR (CKD) >90 (>60 ml/min/1.73 sqM); Anion Gap 8 mmol/L; Blood Urea Nitrogen 9 mg/dL (9-20); Calcium 8.8 mg/dL (8.4-10.2); Carbon Dioxide 20 mmol/L (22-30); Chloride 109 mmol/L (98-107); Glucose 129 mg/dL (74-99); Non-African American GFR(CKD) >90 (>60 ml/min/1.73 sqM); Potassium 4.5 mmol/L (3.5-5.1); Sodium 137 mmol/L (137-145)
[2024-01-21 20:57] LABS: Glucose,Whole Blood 133 mg/dL (70-110)
[2024-01-21] MEDS: SENNOSIDES-DOCUSATE SODIUM 1 EACH TAB PO SCH (21:13)
[2024-01-21 22:04] LABS: Glucose,Whole Blood 134 mg/dL (70-110)
[2024-01-21 22:57] LABS: Glucose,Whole Blood 125 mg/dL (70-110)
[2024-01-22 00:04] LABS: Glucose,Whole Blood 127 mg/dL (70-110)
[2024-01-22] MEDS: VASOPRESSIN 20 UNIT in SODIUM CHLORIDE 0.9% 50 ML IV SCH (01:25)
[2024-01-22 02:01] LABS: Glucose,Whole Blood 128 mg/dL (70-110)
[2024-01-22 03:57] LABS: Glucose,Whole Blood 134 mg/dL (70-110)
[2024-01-22 04:07] LABS: Basophils % (A) 0 %; Eosinophils # (A) 0.1 k/uL (0-0.7); Eosinophils % (A) 1 %; HGB 8.4 gm/dL (13.0-17.5); Hypochromasia Slight; Lymphocytes # (A) 0.9 k/uL (1.0-4.8); Lymphocytes % (A) 15 %; MCHC 31.1 g/dL (31.0-37.0); MCV 99.8 fL (80.0-100.0); Macrocytosis Slight; Mean Platelet Volume 9.6; Monocytes # (A) 0.5 k/uL (0-1.0); Monocytes % (A) 9 %; Neutrophils # (A) 4.3 k/uL (1.3-7.7); Neutrophils % (A) 73 %; Platelet Count 119 k/uL (150-450); RDW 15.6 % (11.5-15.5); WBC 5.9 k/uL (3.8-10.6)
[2024-01-22 04:11] LABS: Ionized Calcium 4.9 mg/dL (4.5-5.3)
[2024-01-22 04:19] LABS: ALT 13 U/L (4-49); AST 25 U/L (17-59); African American GFR (CKD) >90 (>60 ml/min/1.73 sqM); Albumin 3.2 g/dL (3.5-5.0); Alkaline Phosphatase 55 U/L (38-126); Anion Gap 2 mmol/L; Blood Urea Nitrogen 10 mg/dL (9-20); Calcium 8.3 mg/dL (8.4-10.2); Carbon Dioxide 26 mmol/L (22-30); Chloride 108 mmol/L (98-107); Glucose 123 mg/dL (74-99); Magnesium 1.8 mg/dL (1.6-2.3); Non-African American GFR(CKD) >90 (>60 ml/min/1.73 sqM); Potassium 4.6 mmol/L (3.5-5.1); Sodium 136 mmol/L (137-145); Total Bilirubin 0.4 mg/dL (0.2-1.3)
[2024-01-22] MEDS: MAGNESIUM SULFATE-D5W PMX 1 GM in DEXTROSE/WATER 1 100ML.BAG IVPB ONE (04:46)
[2024-01-22 04:48] LABS: ABG Base Excess -1.3 mmol/L; ABG HCO3 24 mmol/L (21-25); ABG Oxygen Saturation 99.2 % (94-97); ABG PCO2 41 mmHg (35-45); ABG PH 7.37 (7.35-7.45); ABG PO2 127 mmHg (83-108); ABG TCO2 25 mmol/L (19-24)
[2024-01-22 06:05] LABS: Glucose,Whole Blood 153 mg/dL (70-110)
[2024-01-22 06:14] LABS: Allen Test Performed? no
[2024-01-22 06:52] LABS: Glucose,Whole Blood 146 mg/dL (70-110)
[2024-01-22 08:09] LABS: ABG Base Excess -0.9 mmol/L; ABG HCO3 24 mmol/L (21-25); ABG Oxygen Saturation 99.5 % (94-97); ABG PCO2 39 mmHg (35-45); ABG PO2 137 mmHg (83-108); ABG TCO2 25 mmol/L (19-24)
[2024-01-22] MEDS: ASPIRIN 325 MG TAB PO SCH (08:14)
[2024-01-22] MEDS: CLOPIDOGREL 75 MG TAB PO SCH (08:15)
[2024-01-22] MEDS: ATORVASTATIN 40 MG TAB PO SCH (08:15)
[2024-01-22] MEDS: PANTOPRAZOLE 40 MG/10 ML VIAL IVP SCH (08:15)
[2024-01-22] MEDS: METOPROLOL TARTRATE 12.5 MG TAB PO SCH (08:15)
[2024-01-22 08:36] LABS: Glucose,Whole Blood 113 mg/dL (70-110)
--- NOTE | 2024-01-22 09:18 | P.PN ---
Subjective Progress Note Date: 01/22/24 Principal diagnosis: Multivessel coronary artery disease, NSTEMI this admission, left internal carotid artery stenosis. Past medical history significant for pulmonary embolus in October 2022 status post INARI procedure on Eliquis For anticoagulation, hyperlipidemia, depression, chronic back pain, anemia, rheumatoid arthritis, GERD, previous tobacco dependence, and family history of coronary artery disease on his father's side. POD #1 Off pump coronary artery bypass grafting x 3. Left internal thoracic artery (in-situ) to left anterior descending coronary artery. Saphenous vein from aorta to distal right coronary artery. Saphenous vein from aorta to obtuse marginal artery #1, left atrial appendage ligation using a number 35 mm atrial clip, endoscopic right greater saphenous vein harvest, graft flow measurements using the [employer] flow meter system, excision of chest wall lesion, intraoperative transesophageal echocardiogram. Postoperative acute blood loss anemia, expected given hemodilution. The patient was seen in follow-up today January 22, 2024 at his bedside in the intensive care unit. He remains intubated with mechanical ventilator support, is currently sedated on propofol drip at 10 mcg/kg/min, is following verbal commands appropriately and moving all 4 extremities appropriately with verbal stimuli. He is shaking his head yes and no appropriately to questions. Current mechanical ventilator settings are assist-control 12, TV 500, FiO2 50% and a PEEP of 5. Oxygen saturations are 99% on current mechanical ventilator settings. According to the patient's night nurse, several weaning trials were attempted, although halted due to some tachypnea and restlessness. Right IJ Pewamo-Jeovanny catheter and Cordis remain in place with current hemodynamic showing a cardiac output 5.7, cardiac index 2.8, PA pressures 27/18 and CVP 10 mmHg. The patient did have some hypotension throughout the night requiring vasopressin drip which is currently on hold. Mediastinal/right and left pleural chest tubes remain in place to low continuous wall suction -20 cm H2O. No air leak is present. Draining thin serosanguineous drainage. Mediastinal/right pleural c hest tubes draining thin serosanguineous drainage with 160 mL output in the last 8 hours and 500 mL output since surgery. Left pleural chest tube draining thin serosanguineous drainage with 60 mL output in the last 8 hours and 180 mL output since surgery. ABG this morning shows a pH of 7.37, pCO2 41, pO2 127, HCO3 25, and O2 sat 99.2. Chest x-ray and laboratory results were reviewed. Objective - Vital Signs Vital signs: Vital Signs Temp 98.6 F 01/22/24 00:00 Pulse 68 01/22/24 07:00 Resp 20 01/22/24 07:00 BP 86/53 01/22/24 00:00 Pulse Ox 100 01/22/24 07:00 FiO2 50 01/22/24 07:41 Intake & Output 01/21/24 01/22/24 01/22/24 18:59 06:59 18:59 Intake Total 4913.085 8494.133 82.493 Output Total 2175 808 41 Balance -8322.018 0027.133 41.493 Weight 88.2 kg 92.5 kg Intake: IV 228 1698 79 0.9ns pressure bag 45 108 9 ACETAMINOPHEN IV (For NPO 100 ) 1,000 mg In Empty Bag 1 bag @ 400 mls/hr IVPB Q6HR SUSAN Rx#:[id number] Albumin Human 5% 250 ml 500 In Empty Bag 1 bag @ 250 mls/hr IVPB Q1HR PRN Rx#: [id number] Lactated Ringers 1,000 ml 550 50 @ 50 mls/hr IV .Q20H SUSAN Rx#:[id number] Magnesium Sulfate-D5w Pmx 100 1 gm In Dextrose/Water 1 100ml.bag @ 100 mls/hr IVPB ONCE ONE Rx#: [id number] ceFAZolin 2 gm In Sodium 50 Chloride 0.9% 50 ml @ 100 mls/hr IVPB ONCE ONE Rx# :[id number] co/ci 130 290 20 Intake, IV Titration 868.504 172.133 3.493 Amount Albumin Human 5% 500 ml 250 In Empty Bag 1 bag @ 250 mls/hr IVPB ONCE ONE Rx#: [id number] Clevidipine Butyrate 25 3.466 mg In Empty Bag 1 bag @ 1 MG/HR 2 mls/hr IV .Q24H SUSAN Rx#:[id number] Dexmedetomidine/0.9% NaCl 1.396 12.937 (Pmx) 400 mcg In Empty Bag 1 bag @ Titrate IV . Q0M SUSAN Rx#:[id number] Insulin Regular 100 unit 3.106 5.681 3.366 In Sodium Chloride 0.9% 100 ml @ Per Protocol IV .Q0M SUSAN Rx#:[id number] Lactated Ringers 1,000 ml 250 50 @ 50 mls/hr IV .Q20H SUSAN Rx#:[id number] Magnesium Sulfate-D5w Pmx 100 1 gm In Dextrose/Water 1 100ml.bag @ 100 mls/hr IVPB Q1H SUSAN Rx#: [id number] Nitroglycerin-D5w Pmx 50 7.175 11.475 mg In Dextrose/Water 1 250ml.bag @ 5 MCG/MIN 1.5 mls/hr IV .Q24H SUSAN Rx#: [id number] Potassium Chloride 10 meq 200 In Water For Injection 1 100ml.bag @ 100 mls/hr IVPB Q1H SUSAN Rx#: [id number] Vasopressin 20 unit In 24.302 0.127 Sodium Chloride 0.9% 50 ml @ 0.04 UNITS/MIN 6.12 mls/hr IV .Q8H20M SUSAN Rx# :[id number] propofoL 1,000 mg In 53.361 67.738 Empty Bag 1 bag @ Titrate IV .Q0M SUSAN Rx#: [id number] Output: Chest Tube Drainage 360 338 6 Chest Tube Right Pleural/ 270 250 0 Mediastinal Pleural Catheter Left 90 88 6 Urine 1565 470 35 Estimated Blood Loss 250 Other: Voiding Method Indwelling Catheter Indwelling Catheter ABP, PAP, CO, CI - Last Documented Arterial Blood Pressure 121/51 Pulmonary Artery Pressure 25/17 Cardiac Output 5.7 Cardiac Index 2.8 - Exam CONSTITUTIONAL: Currently intubated with mechanical ventilator support, cooperative, no apparent acute distress. On propofol drip at 10 mcg/kg/min. HEENT: Neck is supple, no JVD, no lymphadenopathy. Right IJ Cordis and Pewamo- Jeovanny catheter in place and functioning. RESPIRATORY: Lungs sounds essentially clear throughout, diminished to his bilateral bases. Respirations are symmetrical and nonlabored. Remains intubated with mechanical ventilator support, current mechanical ventilator settings are assist-control 12, TV 500, FiO2 50% and a PEEP of 5 with oxygen saturations 99% on current mechanical ventilator settings. Strong cough. CARDIOVASCULAR: Regular rhythm and rate. S1 and S2 present, negative for S3, or gallop, positive systolic murmur. Sternum is stable. Palpable peripheral pulses bilaterally, +1 edema to his bilateral lower extremities. No calf pain or tenderness noted. Heart hugger in place with patient demonstrating appropriate use. Knee-high RUPAL hose and sequential compression devices in place to his bilateral lower extremities. GASTROINTESTINAL: Abdomen soft, nontender, nondistended. Hypoactive bowel sounds present 4 quadrants. No guarding or rigidity. GENITOURINARY: Cristobal present draining clear, yellow urine. Urine output 280 mL in the last 8 hours. INTEGUMENTARY: Skin is warm and dry with no evidence of clubbing or cyanosis. Midline sternal incision clean dry and well approximated, covered with dry intact dressing. Right lower extremity EVH sites well approximated without redness or drainage. NEUROLOGIC: Cranial nerves II through XII intact. No focal deficits. MUSKULOSKELETAL: Able to move all extremities, strength equal bilaterally, generalized weakness. PSYCHIATRIC: Unable to accurately assess at this time, sedated on propofol drip at 10 mcg/kg/min. Shaking head yes and no appropriately to verbal stimuli. INVASIVE LINES AND TUBES: Mediastinal/left/right pleural chest tubes present and connected to low continuous wall suction, no air leaks present. Mediastinal/right pleural chest tubes with 160 mL of thin serosanguineous drainage overnight, 500 mL output in the last 24 hours. Left pleural chest tube with 60 mL of thin serosanguineous drainage overnight, 180 mL output in the last 24 hours. Ventricular epicardial pacemaker wires present, connected to generator, VVI backup rate 50 bpm. Right internal jugular Pewamo/Cordis, right radial arterial line present. Last CO 5.7, CI 2.8, PA 27/18 and CVP 10 mmHg. - Allied health notes Allied health notes reviewed: nursing - Labs CBC & Chem 7: 01/22/24 03:54 01/22/24 03:54 Labs: Abnormal Lab Results - Last 24 Hours (Table) 01/19/24 01/21/24 01/21/24 Range/Units 10:10 09:26 10:53 RBC (4.30-5.90) m/uL Hgb (13.0-17.5) gm/dL Hct (39.0-53.0) % MCHC (31.0-37.0) g/dL RDW (11.5-15.5) % Plt Count (150-450) k/uL Lymphocytes # (1.0-4.8) k/uL PT (10.0-12.5) sec INR (<1.2) APTT (22.0-30.0) sec ABG pO2 229 H 190 H (83-108) mmHg ABG HCO3 26 H (21-25) mmol/L ABG Total CO2 (19-24) mmol/L ABG O2 Saturation 99.3 H 99.3 H (94-97) % ABG Hematocrit 31 L 26 L (34.0-46.0) % ABG Glucose (75-99) mg/dL ABG Lactic Acid 1.8 H (0.5-1.6) mmol/L Hemoglobin 10.1 L 8.5 L (13.0-17.5) gm/dL Sodium (137-145) mmol/L Chloride (98-107) mmol/L Carbon Dioxide (22-30) mmol/L Creatinine (0.66-1.25) mg/dL Glucose (74-99) mg/dL POC Glucose (mg/dL) (70-110) mg/dL Calcium (8.4-10.2) mg/dL Ionized Calcium Dickson (4.5-5.3) mg/dL Magnesium (1.6-2.3) mg/dL Total Protein (6.3-8.2) g/dL Albumin (3.5-5.0) g/dL Arterial Blood Glucose (75-99) mg/dL Crossmatch See Detail 01/21/24 01/21/24 01/21/24 Range/Units 11:19 11:53 12:57 RBC (4.30-5.90) m/uL Hgb (13.0-17.5) gm/dL Hct (39.0-53.0) % MCHC (31.0-37.0) g/dL RDW (11.5-15.5) % Plt Count (150-450) k/uL Lymphocytes # (1.0-4.8) k/uL PT (10.0-12.5) sec INR (<1.2) APTT (22.0-30.0) sec ABG pO2 236 H 242 H (83-108) mmHg ABG HCO3 (21-25) mmol/L ABG Total CO2 (19-24) mmol/L ABG O2 Saturation 99.4 H 99.4 H 98.5 H (94-97) % ABG Hematocrit 26 L 25 L 26 L (34.0-46.0) % ABG Glucose 109 H (75-99) mg/dL ABG Lactic Acid (0.5-1.6) mmol/L Hemoglobin 8.3 L 8.1 L 8.5 L (13.0-17.5) gm/dL Sodium (137-145) mmol/L Chloride (98-107) mmol/L Carbon Dioxide (22-30) mmol/L Creatinine (0.66-1.25) mg/dL Glucose (74-99) mg/dL POC Glucose (mg/dL) (70-110) mg/dL Calcium (8.4-10.2) mg/dL Ionized Calcium Dickson (4.5-5.3) mg/dL Magnesium (1.6-2.3) mg/dL Total Protein (6.3-8.2) g/dL Albumin (3.5-5.0) g/dL Arterial Blood Glucose 109 H (75-99) mg/dL Crossmatch 01/21/24 01/21/24 01/21/24 Range/Units 13:45 13:45 13:45 RBC 2.77 L (4.30-5.90) m/uL Hgb 8.5 L D (13.0-17.5) gm/dL Hct 27.3 L (39.0-53.0) % MCHC (31.0-37.0) g/dL RDW 15.9 H (11.5-15.5) % Plt Count 125 L (150-450) k/uL Lymphocytes # (1.0-4.8) k/uL PT 12.7 H (10.0-12.5) sec INR 1.2 H (<1.2) APTT 33.2 H (22.0-30.0) sec ABG pO2 (83-108) mmHg ABG HCO3 (21-25) mmol/L ABG Total CO2 (19-24) mmol/L ABG O2 Saturation (94-97) % ABG Hematocrit (34.0-46.0) % ABG Glucose (75-99) mg/dL ABG Lactic Acid (0.5-1.6) mmol/L Hemoglobin (13.0-17.5) gm/dL Sodium (137-145) mmol/L Chloride (98-107) mmol/L Carbon Dioxide (22-30) mmol/L Creatinine (0.66-1.25) mg/dL Glucose (74-99) mg/dL POC Glucose (mg/dL) 116 H (70-110) mg/dL Calcium (8.4-10.2) mg/dL Ionized Calcium Dickson (4.5-5.3) mg/dL Magnesium (1.6-2.3) mg/dL Total Protein (6.3-8.2) g/dL Albumin (3.5-5.0) g/dL Arterial Blood Glucose (75-99) mg/dL Crossmatch 01/21/24 01/21/24 01/21/24 Range/Units 13:45 14:01 14:50 RBC (4.30-5.90) m/uL Hgb (13.0-17.5) gm/dL Hct (39.0-53.0) % MCHC (31.0-37.0) g/dL RDW (11.5-15.5) % Plt Count (150-450) k/uL Lymphocytes # (1.0-4.8) k/uL PT (10.0-12.5) sec INR (<1.2) APTT (22.0-30.0) sec ABG pO2 356 H (83-108) mmHg ABG HCO3 (21-25) mmol/L ABG Total CO2 25 H (19-24) mmol/L ABG O2 Saturation 100.0 H (94-97) % ABG Hematocrit (34.0-46.0) % ABG Glucose (75-99) mg/dL ABG Lactic Acid (0.5-1.6) mmol/L Hemoglobin (13.0-17.5) gm/dL Sodium (137-145) mmol/L Chloride 113 H (98-107) mmol/L Carbon Dioxide 20 L (22-30) mmol/L Creatinine 0.53 L (0.66-1.25) mg/dL Glucose 107 H (74-99) mg/dL POC Glucose (mg/dL) 112 H (70-110) mg/dL Calcium 7.7 L (8.4-10.2) mg/dL Ionized Calcium Dickson 4.4 L (4.5-5.3) mg/dL Magnesium 1.5 L (1.6-2.3) mg/dL Total Protein 4.5 L (6.3-8.2) g/dL Albumin 2.7 L (3.5-5.0) g/dL Arterial Blood Glucose (75-99) mg/dL Crossmatch 01/21/24 01/21/24 01/21/24 Range/Units 16:00 16:46 16:47 RBC 2.99 L (4.30-5.90) m/uL Hgb 9.2 L (13.0-17.5) gm/dL Hct 29.5 L (39.0-53.0) % MCHC (31.0-37.0) g/dL RDW 15.6 H (11.5-15.5) % Plt Count 147 L (150-450) k/uL Lymphocytes # 0.8 L (1.0-4.8) k/uL PT (10.0-12.5) sec INR (<1.2) APTT (22.0-30.0) sec ABG pO2 (83-108) mmHg ABG HCO3 (21-25) mmol/L ABG Total CO2 (19-24) mmol/L ABG O2 Saturation (94-97) % ABG Hematocrit (34.0-46.0) % ABG Glucose (75-99) mg/dL ABG Lactic Acid (0.5-1.6) mmol/L Hemoglobin (13.0-17.5) gm/dL Sodium (137-145) mmol/L Chloride (98-107) mmol/L Carbon Dioxide (22-30) mmol/L Creatinine (0.66-1.25) mg/dL Glucose (74-99) mg/dL POC Glucose (mg/dL) 147 H 131 H (70-110) mg/dL Calcium (8.4-10.2) mg/dL Ionized Calcium Dickson (4.5-5.3) mg/dL Magnesium (1.6-2.3) mg/dL Total Protein (6.3-8.2) g/dL Albumin (3.5-5.0) g/dL Arterial Blood Glucose (75-99) mg/dL Crossmatch 01/21/24 01/21/24 01/21/24 Range/Units 18:19 18:51 19:46 RBC (4.30-5.90) m/uL Hgb (13.0-17.5) gm/dL Hct (39.0-53.0) % MCHC (31.0-37.0) g/dL RDW (11.5-15.5) % Plt Count (150-450) k/uL Lymphocytes # (1.0-4.8) k/uL PT (10.0-12.5) sec INR (<1.2) APTT (22.0-30.0) sec ABG pO2 (83-108) mmHg ABG HCO3 (21-25) mmol/L ABG Total CO2 (19-24) mmol/L ABG O2 Saturation (94-97) % ABG Hematocrit (34.0-46.0) % ABG Glucose (75-99) mg/dL ABG Lactic Acid (0.5-1.6) mmol/L Hemoglobin (13.0-17.5) gm/dL Sodium (137-145) mmol/L Chloride (98-107) mmol/L Carbon Dioxide (22-30) mmol/L Creatinine (0.66-1.25) mg/dL Glucose (74-99) mg/dL POC Glucose (mg/dL) 114 H 125 H 135 H (70-110) mg/dL Calcium (8.4-10.2) mg/dL Ionized Calcium Dickson (4.5-5.3) mg/dL Magnesium (1.6-2.3) mg/dL Total Protein (6.3-8.2) g/dL Albumin (3.5-5.0) g/dL Arterial Blood Glucose (75-99) mg/dL Crossmatch 01/21/24 01/21/24 01/21/24 Range/Units 19:46 19:46 20:55 RBC 3.04 L (4.30-5.90) m/uL Hgb 9.2 L (13.0-17.5) gm/dL Hct 30.3 L (39.0-53.0) % MCHC 30.5 L (31.0-37.0) g/dL RDW 15.6 H (11.5-15.5) % Plt Count (150-450) k/uL Lymphocytes # 0.4 L (1.0-4.8) k/uL PT (10.0-12.5) sec INR (<1.2) APTT (22.0-30.0) sec ABG pO2 (83-108) mmHg ABG HCO3 (21-25) mmol/L ABG Total CO2 (19-24) mmol/L ABG O2 Saturation (94-97) % ABG Hematocrit (34.0-46.0) % ABG Glucose (75-99) mg/dL ABG Lactic Acid (0.5-1.6) mmol/L Hemoglobin (13.0-17.5) gm/dL Sodium (137-145) mmol/L Chloride 109 H (98-107) mmol/L Carbon Dioxide 20 L (22-30) mmol/L Creatinine 0.58 L (0.66-1.25) mg/dL Glucose 129 H (74-99) mg/dL POC Glucose (mg/dL) 133 H (70-110) mg/dL Calcium (8.4-10.2) mg/dL Ionized Calcium Dickson (4.5-5.3) mg/dL Magnesium (1.6-2.3) mg/dL Total Protein (6.3-8.2) g/dL Albumin (3.5-5.0) g/dL Arterial Blood Glucose (75-99) mg/dL Crossmatch 01/21/24 01/21/24 01/22/24 Range/Units 22:02 22:55 00:03 RBC (4.30-5.90) m/uL Hgb (13.0-17.5) gm/dL Hct (39.0-53.0) % MCHC (31.0-37.0) g/dL RDW (11.5-15.5) % Plt Count (150-450) k/uL Lymphocytes # (1.0-4.8) k/uL PT (10.0-12.5) sec INR (<1.2) APTT (22.0-30.0) sec ABG pO2 (83-108) mmHg ABG HCO3 (21-25) mmol/L ABG Total CO2 (19-24) mmol/L ABG O2 Saturation (94-97) % ABG Hematocrit (34.0-46.0) % ABG Glucose (75-99) mg/dL ABG Lactic Acid (0.5-1.6) mmol/L Hemoglobin (13.0-17.5) gm/dL Sodium (137-145) mmol/L Chloride (98-107) mmol/L Carbon Dioxide (22-30) mmol/L Creatinine (0.66-1.25) mg/dL Glucose (74-99) mg/dL POC Glucose (mg/dL) 134 H 125 H 127 H (70-110) mg/dL Calcium (8.4-10.2) mg/dL Ionized Calcium Dickson (4.5-5.3) mg/dL Magnesium (1.6-2.3) mg/dL Total Protein (6.3-8.2) g/dL Albumin (3.5-5.0) g/dL Arterial Blood Glucose (75-99) mg/dL Crossmatch 01/22/24 01/22/24 01/22/24 Range/Units 02:00 03:54 03:54 RBC 2.70 L (4.30-5.90) m/uL Hgb 8.4 L (13.0-17.5) gm/dL Hct 27.0 L (39.0-53.0) % MCHC (31.0-37.0) g/dL RDW 15.6 H (11.5-15.5) % Plt Count 119 L (150-450) k/uL Lymphocytes # 0.9 L (1.0-4.8) k/uL PT (10.0-12.5) sec INR (<1.2) APTT (22.0-30.0) sec ABG pO2 (83-108) mmHg ABG HCO3 (21-25) mmol/L ABG Total CO2 (19-24) mmol/L ABG O2 Saturation (94-97) % ABG Hematocrit (34.0-46.0) % ABG Glucose (75-99) mg/dL ABG Lactic Acid (0.5-1.6) mmol/L Hemoglobin (13.0-17.5) gm/dL Sodium 136 L (137-145) mmol/L Chloride 108 H (98-107) mmol/L Carbon Dioxide (22-30) mmol/L Creatinine 0.61 L (0.66-1.25) mg/dL Glucose 123 H (74-99) mg/dL POC Glucose (mg/dL) 128 H (70-110) mg/dL Calcium 8.3 L (8.4-10.2) mg/dL Ionized Calcium Dickson (4.5-5.3) mg/dL Magnesium (1.6-2.3) mg/dL Total Protein 5.0 L (6.3-8.2) g/dL Albumin 3.2 L (3.5-5.0) g/dL Arterial Blood Glucose (75-99) mg/dL Crossmatch 01/22/24 01/22/24 01/22/24 Range/Units 03:54 04:46 06:04 RBC (4.30-5.90) m/uL Hgb (13.0-17.5) gm/dL Hct (39.0-53.0) % MCHC (31.0-37.0) g/dL RDW (11.5-15.5) % Plt Count (150-450) k/uL Lymphocytes # (1.0-4.8) k/uL PT (10.0-12.5) sec INR (<1.2) APTT (22.0-30.0) sec ABG pO2 127 H (83-108) mmHg ABG HCO3 (21-25) mmol/L ABG Total CO2 25 H (19-24) mmol/L ABG O2 Saturation 99.2 H (94-97) % ABG Hematocrit (34.0-46.0) % ABG Glucose (75-99) mg/dL ABG Lactic Acid (0.5-1.6) mmol/L Hemoglobin (13.0-17.5) gm/dL Sodium (137-145) mmol/L Chloride (98-107) mmol/L Carbon Dioxide (22-30) mmol/L Creatinine (0.66-1.25) mg/dL Glucose (74-99) mg/dL POC Glucose (mg/dL) 134 H 153 H (70-110) mg/dL Calcium (8.4-10.2) mg/dL Ionized Calcium Dickson (4.5-5.3) mg/dL Magnesium (1.6-2.3) mg/dL Total Protein (6.3-8.2) g/dL Albumin (3.5-5.0) g/dL Arterial Blood Glucose (75-99) mg/dL Crossmatch 01/22/24 01/22/24 01/22/24 Range/Units 06:51 08:07 08:35 RBC (4.30-5.90) m/uL Hgb (13.0-17.5) gm/dL Hct (39.0-53.0) % MCHC (31.0-37.0) g/dL RDW (11.5-15.5) % Plt Count (150-450) k/uL Lymphocytes # (1.0-4.8) k/uL PT (10.0-12.5) sec INR (<1.2) APTT (22.0-30.0) sec ABG pO2 137 H (83-108) mmHg ABG HCO3 (21-25) mmol/L ABG Total CO2 25 H (19-24) mmol/L ABG O2 Saturation 99.5 H (94-97) % ABG Hematocrit (34.0-46.0) % ABG Glucose (75-99) mg/dL ABG Lactic Acid (0.5-1.6) mmol/L Hemoglobin (13.0-17.5) gm/dL Sodium (137-145) mmol/L Chloride (98-107) mmol/L Carbon Dioxide (22-30) mmol/L Creatinine (0.66-1.25) mg/dL Glucose (74-99) mg/dL POC Glucose (mg/dL) 146 H 113 H (70-110) mg/dL Calcium (8.4-10.2) mg/dL Ionized Calcium Dickson (4.5-5.3) mg/dL Magnesium (1.6-2.3) mg/dL Total Protein (6.3-8.2) g/dL Albumin (3.5-5.0) g/dL Arterial Blood Glucose (75-99) mg/dL Crossmatch - Imaging and Cardiology Chest x-ray: report reviewed, image reviewed Assessment and Plan Assessment: Multivessel coronary artery disease, status post three-vessel coronary artery bypass grafting surgery Non-ST elevated myocardial infarction this admission Left internal carotid artery stenosis by carotid Doppler, asymptomatic History of pulmonary embolus in October 2022 status post INARI procedure, on Eliquis For anticoagulation last dose was on 01/14/2024 Hyperlipidemia, treated, cholesterol 147, LDL 71 History of depression, treated Chronic back pain, on chronic [place] as an outpatient Anemia of chronic disease Rheumatoid arthritis, on methotrexate outpatient, last dose 01/11/2024 Family history of coronary artery disease on his father's side GERD Remote history of nicotine dependence quit 43 years ago, preoperative FEV1 89% of predicted value Postoperative acute blood loss anemia, expected Plan: Continue to maximize medical therapy with aspirin, statin, Plavix, and beta- richard. Will increase beta-richard therapy as tolerated, with hold parameters. Mechanical ventilator management and weaning per pulmonary/critical care service recommendations. Wean propofol drip to extubate. Once extubated wean O2 as tolerated, encourage incentive spirometry use 10 times every hour while awake, bronchodilators per pulmonology/critical care medicine. Once extubated increase activity, ambulate as tolerated. PT/OT/cardiac rehab consulted. Will monitor daily labs and x-rays, electrolyte replacement per protocol. GI/DVT prophylaxis. Pain control per current medication regimen. Toradol added for additional pain control. Insulin management per internal medicine. Preoperative hemoglobin A1c 6.1%. P atient should remain on IV insulin for 48 hours, then may transition to subcutaneous per protocol Continue chest tubes for another 24 hours, monitor and record output. Continue Cristobal catheter for another 24 hours, continue to record strict accurate intake and output. Remove right IJ Pewamo-Jeovanny catheter, keep right IJ cordis in place with continuous CVP monitoring. Daily weights. More recommendations to follow as patient progresses Time with Patient: Greater than 30
[2024-01-22 09:28] LABS: Glucose,Whole Blood 119 mg/dL (70-110)
[2024-01-22] MEDS: ACETAMINOPHEN IV (For NPO) 1,000 MG in EMPTY BAG 1 BAG IVPB PRN (09:39)
[2024-01-22 10:03] LABS: Glucose,Whole Blood 119 mg/dL (70-110)
[2024-01-22] MEDS: KETOROLAC 15 MG/ML 1 ML VIAL IVP SCH (10:46)
--- NOTE | 2024-01-22 11:05 | P.PN ---
Subjective Progress Note Date: 01/22/24 Principal diagnosis: Coronary disease. Patient is a 78-year-old white male with past medical history significant for pulmonary embolism status post INARI procedure and chronically anticoagulated on Eliquis, hyperlipidemia, rheumatoid arthritis, PMR, multiple previous back surgeries and altered gait, and remote history of nicotine use over 20 years ago. No known pre-existing lung disease. Follows at the [facility] in [place]. On 01/16/2024 the patient presented to [facility] complaining of new onset substernal chest pain that radiated to his left jaw and bilateral arms. He denied any associated shortness of breath, nausea, diaphoresis. This occurred while watching TV. Patient did not immediately present to the hospital because [facility]. He was later drove to the hospital, approximately 2 hours later. Initial workup was suspicious for non-ST elevation DE, and patient was transferred to [facility] for further evaluation. He was started on IV heparin per protocol. He did undergo a transthoracic echocardiogram which showed a reduced ejection fraction of 40 to 45% with moderate mitral valve regurgitation. Subsequently, the patient did undergo a cardiac catheterization done 01/17/2024 which showed severe multivessel coronary artery disease. Disease vessels included the RCA with a tubular lesion of approximately 70-80% stenosis, LAD also had a long tubular lesion with a range of 60% stenosis, the the first obtuse marginal branch of the left circumflex artery had an ostial lesion with a range of approximately 90% stenosis. Cardiothoracic surgery was asked to evaluate the patient for surgical myocardial revascularization. We were then consulted for pulmonary clearance. On my evaluation, the patient is currently resting in bed, on room air, in no acute distress. Heparin continues to be infusing. Patient denies any current chest pain. Denies any shortness of breath or pulmonary complaints. Denies any history of lung disease. 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 A bedside spirometry showed an FEV1 of 2.79 L or 89% of predicted. CT of the chest from outside facility reviewed. No obvious pulmonary emboli. Small 2 x 4 mm pulmonary nodule, likely benign. No acute cardiopulmonary process. Eliquis is on hold. Heparin is infusion per protocol. Most recent APTT therapeutic. Most recent CBC and BMP from yesterday unremarkable. Troponins peaked at 0.5 at our facility. Hemodynamically stable. Progress note dated January 20, 2024. This is a 78-year-old male that we saw yesterday in consultation. The patient is scheduled for bypass grafting, tomorrow, January 20. The patient is on room air. He is not receiving any IV fluids. The patient does continue on IV heparin. Yesterday I introduced myself to the patient, and basically told him my role in this whole process, which is to get him off the mechanical ventilator as soon as possible, and to also maintain normal lung function, throughout his hospital course. I told him the incentive spirometer, in that regard, was very important. No new labs today other than a PTT of 55.9. Progress note dated January 22, 2024. 78-year-old male seen in the intensive care unit, room 251. The patient is postop day #1, status post off-pump, three-vessel bypass grafting. Currently, he is on pressure support of 5, and CPAP of 5, and 50%. Arterial blood gases this morning show pO2 127, pCO2 41, and pH is 7.37. His insulin is on hold. His lactated Ringer's is running at 50 cc an hour. Current labs include a white count 5.9, hemoglobin 8.4, hematocrit 27, platelet count 119,000. Sodium 136, potassium 4.6, chlorides 108, CO2 26, BUN 10, creatinine 0.61. Glucose is 123. Calcium is 8.3. Albumin is 3.2. Chest x-ray shows a properly placed end otracheal tube. Chest x-ray also shows some bibasilar atelectasis or infiltrates, and postsurgical changes. Objective - Vital Signs Vital signs: Vital Signs Temp 99.1 F 01/22/24 08:00 Pulse 81 01/22/24 10:00 Resp 25 H 01/22/24 10:45 BP 106/56 01/22/24 09:30 Pulse Ox 94 L 01/22/24 10:00 FiO2 50 01/22/24 08:00 Intake & Output 01/21/24 01/22/24 01/22/24 18:59 06:59 18:59 Intake Total 3367.431 4890.133 434.493 Output Total 2175 808 274 Balance -2512.438 6073.133 160.493 Weight 88.2 kg 92.5 kg Intake: IV 228 1698 351 0.9ns pressure bag 45 108 36 ACETAMINOPHEN IV (For NPO 100 ) 1,000 mg In Empty Bag 1 bag @ 400 mls/hr IVPB Q6HR [facility] Rx#:[id number] Albumin Human 5% 250 ml 500 In Empty Bag 1 bag @ 250 mls/hr IVPB Q1HR PRN Rx#: [id number] Lactated Ringers 1,000 ml 550 175 @ 20 mls/hr IV .Q24H [facility] Rx#:[id number] Magnesium Sulfate-D5w Pmx 100 1 gm In Dextrose/Water 1 100ml.bag @ 100 mls/hr IVPB ONCE ONE Rx#: [id number] ceFAZolin 2 gm In Sodium 50 100 Chloride 0.9% 50 ml @ 100 mls/hr IVPB ONCE ONE Rx# :[id number] co/ci 130 290 40 Intake, IV Titration 868.504 172.133 3.493 Amount Albumin Human 5% 500 ml 250 In Empty Bag 1 bag @ 250 mls/hr IVPB ONCE ONE Rx#: [id number] Clevidipine Butyrate 25 3.466 mg In Empty Bag 1 bag @ 1 MG/HR 2 mls/hr IV .Q24H [facility] Rx#:[id number] Dexmedetomidine/0.9% NaCl 1.396 12.937 (Pmx) 400 mcg In Empty Bag 1 bag @ Titrate IV . Q0M [facility] Rx#:[id number] Insulin Regular 100 unit 3.106 5.681 3.366 In Sodium Chloride 0.9% 100 ml @ Per Protocol IV .Q0M [facility] Rx#:[id number] Lactated Ringers 1,000 ml 250 50 @ 20 mls/hr IV .Q24H [facility] Rx#:[id number] Magnesium Sulfate-D5w Pmx 100 1 gm In Dextrose/Water 1 100ml.bag @ 100 mls/hr IVPB Q1H [facility] Rx#: [id number] Nitroglycerin-D5w Pmx 50 7.175 11.475 mg In Dextrose/Water 1 250ml.bag @ 5 MCG/MIN 1.5 mls/hr IV .Q24H [facility] Rx#: [id number] Potassium Chloride 10 meq 200 In Water For Injection 1 100ml.bag @ 100 mls/hr IVPB Q1H [facility] Rx#: [id number] Vasopressin 20 unit In 24.302 0.127 Sodium Chloride 0.9% 50 ml @ 0.04 UNITS/MIN 6.12 mls/hr IV .Q8H20M [facility] Rx# :[id number] propofoL 1,000 mg In 53.361 67.738 Empty Bag 1 bag @ Titrate IV .Q0M [facility] Rx#: [id number] Oral 80 Output: Chest Tube Drainage 360 338 119 Chest Tube Right Pleural/ 270 250 70 Mediastinal Pleural Catheter Left 90 88 49 Urine 1565 470 155 Estimated Blood Loss 250 Other: Voiding Method Indwelling Catheter Indwelling Catheter Indwelling Catheter ABP, PAP, CO, CI - Last Documented Arterial Blood Pressure 142/48 Pulmonary Artery Pressure 23/18 Cardiac Output 6 Cardiac Index 2.9 - Exam No acute distress, off of sedation, with an orally placed endotracheal tube. The patient is calm. HEENT examination is grossly unremarkable. Mucous membranes are moist. No oral lesions. Neck supple. Full range of motion. No adenopathy thyromegaly or neck vein distention. Cardiovascular examination reveals regular rhythm rate. S1-S2 normal. No S3 or S4. No discernible murmur noted. Heart rate is 81 bpm. Lungs reveal clear breath sounds. Breath sounds are equal bilaterally. No adventitious lung sounds including wheezes rhonchi or crackles. Abdomen soft bowel sounds are heard. No masses or tenderness. Extremities are intact. No cyanosis clubbing or edema. Skin is without rash or lesion. Neurologic examination appears stable. The patient moves all 4 extremities. He does not his head appropriately. - Labs CBC & Chem 7: 01/22/24 03:54 01/22/24 03:54 Labs: Abnormal Lab Results - Last 24 Hours (Table) 01/19/24 01/21/24 01/21/24 Range/Units 10:10 09:26 10:53 RBC (4.30-5.90) m/uL Hgb (13.0-17.5) gm/dL Hct (39.0-53.0) % MCHC (31.0-37.0) g/dL RDW (11.5-15.5) % Plt Count (150-450) k/uL Lymphocytes # (1.0-4.8) k/uL PT (10.0-12.5) sec INR (<1.2) APTT (22.0-30.0) sec ABG pO2 229 H 190 H (83-108) mmHg ABG HCO3 26 H (21-25) mmol/L ABG Total CO2 (19-24) mmol/L ABG O2 Saturation 99.3 H 99.3 H (94-97) % ABG Hematocrit 31 L 26 L (34.0-46.0) % ABG Glucose (75-99) mg/dL ABG Lactic Acid 1.8 H (0.5-1.6) mmol/L Hemoglobin 10.1 L 8.5 L (13.0-17.5) gm/dL Sodium (137-145) mmol/L Chloride (98-107) mmol/L Carbon Dioxide (22-30) mmol/L Creatinine (0.66-1.25) mg/dL Glucose (74-99) mg/dL POC Glucose (mg/dL) (70-110) mg/dL Calcium (8.4-10.2) mg/dL Ionized Calcium Dickson (4.5-5.3) mg/dL Magnesium (1.6-2.3) mg/dL Total Protein (6.3-8.2) g/dL Albumin (3.5-5.0) g/dL Arterial Blood Glucose (75-99) mg/dL Crossmatch See Detail 01/21/24 01/21/24 01/21/24 Range/Units 11:19 11:53 12:57 RBC (4.30-5.90) m/uL Hgb (13.0-17.5) gm/dL Hct (39.0-53.0) % MCHC (31.0-37.0) g/dL RDW (11.5-15.5) % Plt Count (150-450) k/uL Lymphocytes # (1.0-4.8) k/uL PT (10.0-12.5) sec INR (<1.2) APTT (22.0-30.0) sec ABG pO2 236 H 242 H (83-108) mmHg ABG HCO3 (21-25) mmol/L ABG Total CO2 (19-24) mmol/L ABG O2 Saturation 99.4 H 99.4 H 98.5 H (94-97) % ABG Hematocrit 26 L 25 L 26 L (34.0-46.0) % ABG Glucose 109 H (75-99) mg/dL ABG Lactic Acid (0.5-1.6) mmol/L Hemoglobin 8.3 L 8.1 L 8.5 L (13.0-17.5) gm/dL Sodium (137-145) mmol/L Chloride (98-107) mmol/L Carbon Dioxide (22-30) mmol/L Creatinine (0.66-1.25) mg/dL Glucose (74-99) mg/dL POC Glucose (mg/dL) (70-110) mg/dL Calcium (8.4-10.2) mg/dL Ionized Calcium Dickson (4.5-5.3) mg/dL Magnesium (1.6-2.3) mg/dL Total Protein (6.3-8.2) g/dL Albumin (3.5-5.0) g/dL Arterial Blood Glucose 109 H (75-99) mg/dL Crossmatch 01/21/24 01/21/24 01/21/24 Range/Units 13:45 13:45 13:45 RBC 2.77 L (4.30-5.90) m/uL Hgb 8.5 L D (13.0-17.5) gm/dL Hct 27.3 L (39.0-53.0) % MCHC (31.0-37.0) g/dL RDW 15.9 H (11.5-15.5) % Plt Count 125 L (150-450) k/uL Lymphocytes # (1.0-4.8) k/uL PT 12.7 H (10.0-12.5) sec INR 1.2 H (<1.2) APTT 33.2 H (22.0-30.0) sec ABG pO2 (83-108) mmHg ABG HCO3 (21-25) mmol/L ABG Total CO2 (19-24) mmol/L ABG O2 Saturation (94-97) % ABG Hematocrit (34.0-46.0) % ABG Glucose (75-99) mg/dL ABG Lactic Acid (0.5-1.6) mmol/L Hemoglobin (13.0-17.5) gm/dL Sodium (137-145) mmol/L Chloride (98-107) mmol/L Carbon Dioxide (22-30) mmol/L Creatinine (0.66-1.25) mg/dL Glucose (74-99) mg/dL POC Glucose (mg/dL) 116 H (70-110) mg/dL Calcium (8.4-10.2) mg/dL Ionized Calcium Dickson (4.5-5.3) mg/dL Magnesium (1.6-2.3) mg/dL Total Protein (6.3-8.2) g/dL Albumin (3.5-5.0) g/dL Arterial Blood Glucose (75-99) mg/dL Crossmatch 01/21/24 01/21/24 01/21/24 Range/Units 13:45 14:01 14:50 RBC (4.30-5.90) m/uL Hgb (13.0-17.5) gm/dL Hct (39.0-53.0) % MCHC (31.0-37.0) g/dL RDW (11.5-15.5) % Plt Count (150-450) k/uL Lymphocytes # (1.0-4.8) k/uL PT (10.0-12.5) sec INR (<1.2) APTT (22.0-30.0) sec ABG pO2 356 H (83-108) mmHg ABG HCO3 (21-25) mmol/L ABG Total CO2 25 H (19-24) mmol/L ABG O2 Saturation 100.0 H (94-97) % ABG Hematocrit (34.0-46.0) % ABG Glucose (75-99) mg/dL ABG Lactic Acid (0.5-1.6) mmol/L Hemoglobin (13.0-17.5) gm/dL Sodium (137-145) mmol/L Chloride 113 H (98-107) mmol/L Carbon Dioxide 20 L (22-30) mmol/L Creatinine 0.53 L (0.66-1.25) mg/dL Glucose 107 H (74-99) mg/dL POC Glucose (mg/dL) 112 H (70-110) mg/dL Calcium 7.7 L (8.4-10.2) mg/dL Ionized Calcium Dickson 4.4 L (4.5-5.3) mg/dL Magnesium 1.5 L (1.6-2.3) mg/dL Total Protein 4.5 L (6.3-8.2) g/dL Albumin 2.7 L (3.5-5.0) g/dL Arterial Blood Glucose (75-99) mg/dL Crossmatch 01/21/24 01/21/24 01/21/24 Range/Units 16:00 16:46 16:47 RBC 2.99 L (4.30-5.90) m/uL Hgb 9.2 L (13.0-17.5) gm/dL Hct 29.5 L (39.0-53.0) % MCHC (31.0-37.0) g/dL RDW 15.6 H (11.5-15.5) % Plt Count 147 L (150-450) k/uL Lymphocytes # 0.8 L (1.0-4.8) k/uL PT (10.0-12.5) sec INR (<1.2) APTT (22.0-30.0) sec ABG pO2 (83-108) mmHg ABG HCO3 (21-25) mmol/L ABG Total CO2 (19-24) mmol/L ABG O2 Saturation (94-97) % ABG Hematocrit (34.0-46.0) % ABG Glucose (75-99) mg/dL ABG Lactic Acid (0.5-1.6) mmol/L Hemoglobin (13.0-17.5) gm/dL Sodium (137-145) mmol/L Chloride (98-107) mmol/L Carbon Dioxide (22-30) mmol/L Creatinine (0.66-1.25) mg/dL Glucose (74-99) mg/dL POC Glucose (mg/dL) 147 H 131 H (70-110) mg/dL Calcium (8.4-10.2) mg/dL Ionized Calcium Dickson (4.5-5.3) mg/dL Magnesium (1.6-2.3) mg/dL Total Protein (6.3-8.2) g/dL Albumin (3.5-5.0) g/dL Arterial Blood Glucose (75-99) mg/dL Crossmatch 01/21/24 01/21/24 01/21/24 Range/Units 18:19 18:51 19:46 RBC (4.30-5.90) m/uL Hgb (13.0-17.5) gm/dL Hct (39.0-53.0) % MCHC (31.0-37.0) g/dL RDW (11.5-15.5) % Plt Count (150-450) k/uL Lymphocytes # (1.0-4.8) k/uL PT (10.0-12.5) sec INR (<1.2) APTT (22.0-30.0) sec ABG pO2 (83-108) mmHg ABG HCO3 (21-25) mmol/L ABG Total CO2 (19-24) mmol/L ABG O2 Saturation (94-97) % ABG Hematocrit (34.0-46.0) % ABG Glucose (75-99) mg/dL ABG Lactic Acid (0.5-1.6) mmol/L Hemoglobin (13.0-17.5) gm/dL Sodium (137-145) mmol/L Chloride (98-107) mmol/L Carbon Dioxide (22-30) mmol/L Creatinine (0.66-1.25) mg/dL Glucose (74-99) mg/dL POC Glucose (mg/dL) 114 H 125 H 135 H (70-110) mg/dL Calcium (8.4-10.2) mg/dL Ionized Calcium Dickson (4.5-5.3) mg/dL Magnesium (1.6-2.3) mg/dL Total Protein (6.3-8.2) g/dL Albumin (3.5-5.0) g/dL Arterial Blood Glucose (75-99) mg/dL Crossmatch 01/21/24 01/21/24 01/21/24 Range/Units 19:46 19:46 20:55 RBC 3.04 L (4.30-5.90) m/uL Hgb 9.2 L (13.0-17.5) gm/dL Hct 30.3 L (39.0-53.0) % MCHC 30.5 L (31.0-37.0) g/dL RDW 15.6 H (11.5-15.5) % Plt Count (150-450) k/uL Lymphocytes # 0.4 L (1.0-4.8) k/uL PT (10.0-12.5) sec INR (<1.2) APTT (22.0-30.0) sec ABG pO2 (83-108) mmHg ABG HCO3 (21-25) mmol/L ABG Total CO2 (19-24) mmol/L ABG O2 Saturation (94-97) % ABG Hematocrit (34.0-46.0) % ABG Glucose (75-99) mg/dL ABG Lactic Acid (0.5-1.6) mmol/L Hemoglobin (13.0-17.5) gm/dL Sodium (137-145) mmol/L Chloride 109 H (98-107) mmol/L Carbon Dioxide 20 L (22-30) mmol/L Creatinine 0.58 L (0.66-1.25) mg/dL Glucose 129 H (74-99) mg/dL POC Glucose (mg/dL) 133 H (70-110) mg/dL Calcium (8.4-10.2) mg/dL Ionized Calcium Dickson (4.5-5.3) mg/dL Magnesium (1.6-2.3) mg/dL Total Protein (6.3-8.2) g/dL Albumin (3.5-5.0) g/dL Arterial Blood Glucose (75-99) mg/dL Crossmatch 01/21/24 01/21/24 01/22/24 Range/Units 22:02 22:55 00:03 RBC (4.30-5.90) m/uL Hgb (13.0-17.5) gm/dL Hct (39.0-53.0) % MCHC (31.0-37.0) g/dL RDW (11.5-15.5) % Plt Count (150-450) k/uL Lymphocytes # (1.0-4.8) k/uL PT (10.0-12.5) sec INR (<1.2) APTT (22.0-30.0) sec ABG pO2 (83-108) mmHg ABG HCO3 (21-25) mmol/L ABG Total CO2 (19-24) mmol/L ABG O2 Saturation (94-97) % ABG Hematocrit (34.0-46.0) % ABG Glucose (75-99) mg/dL ABG Lactic Acid (0.5-1.6) mmol/L Hemoglobin (13.0-17.5) gm/dL Sodium (137-145) mmol/L Chloride (98-107) mmol/L Carbon Dioxide (22-30) mmol/L Creatinine (0.66-1.25) mg/dL Glucose (74-99) mg/dL POC Glucose (mg/dL) 134 H 125 H 127 H (70-110) mg/dL Calcium (8.4-10.2) mg/dL Ionized Calcium Dickson (4.5-5.3) mg/dL Magnesium (1.6-2.3) mg/dL Total Protein (6.3-8.2) g/dL Albumin (3.5-5.0) g/dL Arterial Blood Glucose (75-99) mg/dL Crossmatch 01/22/24 01/22/24 01/22/24 Range/Units 02:00 03:54 03:54 RBC 2.70 L (4.30-5.90) m/uL Hgb 8.4 L (13.0-17.5) gm/dL Hct 27.0 L (39.0-53.0) % MCHC (31.0-37.0) g/dL RDW 15.6 H (11.5-15.5) % Plt Count 119 L (150-450) k/uL Lymphocytes # 0.9 L (1.0-4.8) k/uL PT (10.0-12.5) sec INR (<1.2) APTT (22.0-30.0) sec ABG pO2 (83-108) mmHg ABG HCO3 (21-25) mmol/L ABG Total CO2 (19-24) mmol/L ABG O2 Saturation (94-97) % ABG Hematocrit (34.0-46.0) % ABG Glucose (75-99) mg/dL ABG Lactic Acid (0.5-1.6) mmol/L Hemoglobin (13.0-17.5) gm/dL Sodium 136 L (137-145) mmol/L Chloride 108 H (98-107) mmol/L Carbon Dioxide (22-30) mmol/L Creatinine 0.61 L (0.66-1.25) mg/dL Glucose 123 H (74-99) mg/dL POC Glucose (mg/dL) 128 H (70-110) mg/dL Calcium 8.3 L (8.4-10.2) mg/dL Ionized Calcium Dickson (4.5-5.3) mg/dL Magnesium (1.6-2.3) mg/dL Total Protein 5.0 L (6.3-8.2) g/dL Albumin 3.2 L (3.5-5.0) g/dL Arterial Blood Glucose (75-99) mg/dL Crossmatch 01/22/24 01/22/24 01/22/24 Range/Units 03:54 04:46 06:04 RBC (4.30-5.90) m/uL Hgb (13.0-17.5) gm/dL Hct (39.0-53.0) % MCHC (31.0-37.0) g/dL RDW (11.5-15.5) % Plt Count (150-450) k/uL Lymphocytes # (1.0-4.8) k/uL PT (10.0-12.5) sec INR (<1.2) APTT (22.0-30.0) sec ABG pO2 127 H (83-108) mmHg ABG HCO3 (21-25) mmol/L ABG Total CO2 25 H (19-24) mmol/L ABG O2 Saturation 99.2 H (94-97) % ABG Hematocrit (34.0-46.0) % ABG Glucose (75-99) mg/dL ABG Lactic Acid (0.5-1.6) mmol/L Hemoglobin (13.0-17.5) gm/dL Sodium (137-145) mmol/L Chloride (98-107) mmol/L Carbon Dioxide (22-30) mmol/L Creatinine (0.66-1.25) mg/dL Glucose (74-99) mg/dL POC Glucose (mg/dL) 134 H 153 H (70-110) mg/dL Calcium (8.4-10.2) mg/dL Ionized Calcium Dickson (4.5-5.3) mg/dL Magnesium (1.6-2.3) mg/dL Total Protein (6.3-8.2) g/dL Albumin (3.5-5.0) g/dL Arterial Blood Glucose (75-99) mg/dL Crossmatch 01/22/24 01/22/24 01/22/24 Range/Units 06:51 08:07 08:35 RBC (4.30-5.90) m/uL Hgb (13.0-17.5) gm/dL Hct (39.0-53.0) % MCHC (31.0-37.0) g/dL RDW (11.5-15.5) % Plt Count (150-450) k/uL Lymphocytes # (1.0-4.8) k/uL PT (10.0-12.5) sec INR (<1.2) APTT (22.0-30.0) sec ABG pO2 137 H (83-108) mmHg ABG HCO3 (21-25) mmol/L ABG Total CO2 25 H (19-24) mmol/L ABG O2 Saturation 99.5 H (94-97) % ABG Hematocrit (34.0-46.0) % ABG Glucose (75-99) mg/dL ABG Lactic Acid (0.5-1.6) mmol/L Hemoglobin (13.0-17.5) gm/dL Sodium (137-145) mmol/L Chloride (98-107) mmol/L Carbon Dioxide (22-30) mmol/L Creatinine (0.66-1.25) mg/dL Glucose (74-99) mg/dL POC Glucose (mg/dL) 146 H 113 H (70-110) mg/dL Calcium (8.4-10.2) mg/dL Ionized Calcium Dickson (4.5-5.3) mg/dL Magnesium (1.6-2.3) mg/dL Total Protein (6.3-8.2) g/dL Albumin (3.5-5.0) g/dL Arterial Blood Glucose (75-99) mg/dL Crossmatch 01/22/24 01/22/24 Range/Units 09:26 10:02 RBC (4.30-5.90) m/uL Hgb (13.0-17.5) gm/dL Hct (39.0-53.0) % MCHC (31.0-37.0) g/dL RDW (11.5-15.5) % Plt Count (150-450) k/uL Lymphocytes # (1.0-4.8) k/uL PT (10.0-12.5) sec INR (<1.2) APTT (22.0-30.0) sec ABG pO2 (83-108) mmHg ABG HCO3 (21-25) mmol/L ABG Total CO2 (19-24) mmol/L ABG O2 Saturation (94-97) % ABG Hematocrit (34.0-46.0) % ABG Glucose (75-99) mg/dL ABG Lactic Acid (0.5-1.6) mmol/L Hemoglobin (13.0-17.5) gm/dL Sodium (137-145) mmol/L Chloride (98-107) mmol/L Carbon Dioxide (22-30) mmol/L Creatinine (0.66-1.25) mg/dL Glucose (74-99) mg/dL POC Glucose (mg/dL) 119 H 119 H (70-110) mg/dL Calcium (8.4-10.2) mg/dL Ionized Calcium Dickson (4.5-5.3) mg/dL Magnesium (1.6-2.3) mg/dL Total Protein (6.3-8.2) g/dL Albumin (3.5-5.0) g/dL Arterial Blood Glucose (75-99) mg/dL Crossmatch Assessment and Plan Assessment: Postop day #1, S/P off-pump three-vessel bypass grafting. Routine postoperative ventilator management, with anticipated extubation on January 22, 2024. Non-ST elevation myocardial infarction, patient was transferred from [facility] 01/16/2024. Did undergo heart catheterization at our facility 01/17/2024 which showed severe multivessel coronary artery disease. Diseased vessels included the RCA with a tubular lesion of approximately 70-80% stenosis, LAD also had a long tubular lesion with a range of 60% stenosis, the the first obtuse marginal branch of the left circumflex artery had an ostial lesion with a range of approximately 90% stenosis. Currently on heparin infusion per protocol. Cardiothoracic surgery was asked to evaluate the patient for surgical myocardial revascularization. Multivessel coronary artery disease. History of pulmonary embolism, status post INARI procedure, has been chronically anticoagulated on Eliquis. Remote history of tobacco use. Severe proximal left ICA stenosis. Hyperlipidemia. History of rheumatoid arthritis. History of PMR. History of multiple previous back surgeries and chronic lower back pain. GERD, without esophagitis. Plan: Plan dated January 20, 2024. The patient has stable lung function. The patient should do well with his surgical procedure. I explained to him that we will be trying to get him off the ventilator as quickly as possible, after he arrives to the intensive care unit, from the operating room. After extubation, the patient will be seen by us on a daily basis, to make sure that his lungs remain healthy, and to prevent pleural effusion, atelectasis, lobar collapse, pneumonia, etc. In that regard the incentive spirometry is very important. He understands that. The patient does not have a history of any lung issues. Plan dated January 22, 2024. The patient is postoperative day #1, status post off-pump three-vessel bypass grafting. We attempted to extubate the patient yesterday, but he was very restless, and anxious. This morning, he is much more calm. His blood gases show pO2 of 127, pCO2 41, pH is 7.37. Patient's only on lactated Ringer's at 50 cc an hour. The patient's tidal volume is 505 cc, vital capacity 708 cc, negative inspiratory force is -27, rapid shallow breathing index is 37, minute volume is 11.2 L/min, respiratory rate is 24, and the patient does have a cuff l eak. Based on these very excellent weaning parameters, and the fact that the patient is awake and alert, the patient will be extubated today. Labs, x-rays, and medications are reviewed. We will continue to follow the patient, make recommendations along the way. Prognosis is certainly guarded. Time with Patient: Greater than 30
[2024-01-22 11:36] LABS: Glucose,Whole Blood 130 mg/dL (70-110)
--- NOTE | 2024-01-22 12:19 | XR ---
EXAMINATION TYPE: XR chest 1V portable DATE OF EXAM: 01/22/2024 Comparison: 01/21/2024 Clinical History: 78-year-old male Post Operative Cardiac Surgery Findings: ET tube satisfactory. NG tube is short. The sidehole is just above the GE junction level. Median ster notomy wires and post-CABG clips. Mediastinal drains. Epicardial pacer leads. Right IJ [place] cath eter tip probably in the proximal right main pulmonary artery. Left-sided chest tube. No appreciable pneumothorax. Mild cardiomegaly and diffuse interstitial with patchy perihilar and patchy left basila r opacity persists. Possibly slightly worsened in the lower lungs. Impression: 1. Advance the NG tube 5 cm so that the side hole enters the stomach. 2. Ongoing pulmonary vascular congestion. Patchy bilateral lower lung atelectasis versus patchy pulmo nary edema may be slightly increased.
--- NOTE | 2024-01-22 12:41 | P.PN ---
Subjective Progress Note Date: 01/22/24 Patient is a 78-year-old male with chronic low back pain, prior pulmonary embolism, and rheumatoid arthritis who initially was transferred from an outside facility for evaluation of chest pain. On arrival here he had mildly elevated troponins that maxed at 0.50. Cardiology was consulted. He underwent an echocardiogram which demonstrated ejection fraction of 40 to 45% with mildly reduced global left ventricular systolic function and no regional wall motion abnormalities. Cardiology was consulted. He underwent cardiac catheterization on 01/16 which revealed severe triple-vessel coronary artery disease with low left-sided filling pressures. CT surgery was subsequently consulted and plan is for cardiac bypass on 01/20. 01/20 Patient was seen and examined. Underwent off pump CABG x 3 today. Currently intubated. Receiving Clevidipine drip 2 mls/hr, Nitroglycerin drip at 15 mcg/min, normal saline at 40 cc/hr. Sedation includes propofol at 40 mcg/kg/min. CBC Hg 8.5 Hct 27.3 Plt 125. PT 12.7 INR 1.2 APTT 33.2. ABG pH 7.43 pCO2 36. CMP Cl 113, bicarb 20, Cr 0.53, glu 107, Ca 7.7, ionized Ca 4.4, alb 2.7. Mag 1.5. 01/21 Patient was seen and examined. Successfully extubated. Complains of chronic lower back pain. ABG pH 7.4 pCO2 39. CBC Hg 8.4, Hct 27, Pt 119. CMP Na 136, Cl 108, Cr 0.61, glu 123, Ca 8.3, alb 3.2. Mag 1.8. Ionized Ca 4.9. Clevidipine, Propofol and Nitroglycerin drip discontinued. He was on dexmedetomidine and vasopressin drip for a short period of time yesterday now weaned off. Insulin drip running at 1.5 unit/hr. Normal saline at 50 cc/hr. CXR showing pulmonary vascular congestion. General: No acute distress Derm: warm, dry, chest wall dressing c/d/i Head: atraumatic, normocephalic, symmetric, R IJ Eyes: no lid lag, anicteric sclera Mouth: no lip lesion, mucus membranes moist Cardiovascular: S1S2 reg, no murmur, Mediastinal/R/L chest tube intact Lungs: Decreased BS bilateral, no rhonchi, no rales , no accessory muscle use Abdominal: soft, nontender to palpation, no guarding, no appreciable organomegaly Ext: no gross muscle atrophy, no edema, no contractures Neuro: No FND Psych: Alert and oriented Based on my assessment of this patient, this patient meets a high complexity level of care. Acute blood loss anemia: Expected result of surgery. Transfuse if Hg < 7. NSTEMI: ASA 325 mg PO QD. Lipitor 40 mg PO QD. Plavix 75 mg PO QD. Metoprolol 12.5 mg PO BID. Triple vessel CAD status post CABG x 3 POD 1 Acute hypoxic respiratory failure: Expected post CABG. Wean sedation. Hypomagnesemia; 2g Mag sulfate 01/20. Left carotid stenosis: ASA, Lipitor and Plavix as above. HFrEF: EF 40-45%. Rheumatoid arthritis: Hold MTX. Continue with Elavil 25 mg in the morning and 75 mg at night, OxyIR 5/10 mg PO Q4 PRN, Cymbalta 30 mg daily. Chronic back pain History of pulmonary embolism GERD CODE STATUS: FULL CODE DVT Prophylaxis: Heparin GI Prophylaxis: Protonix Designated medical POA if patient is not able to make medical decisions for themselves: I have reviewed the following legal consultant notes: CT surgery, Cardiology, Pulmonary note. I have reviewed the results of the following tests: ABG. CBC. CMP. Mag. Ionized Ca. I have ordered the following tests: Agree with daily CBC, CMP, Mag, ionized Ca, CXR. I have discussed the care of this patient with the following independent historian: I have independently interpreted the following test below: CXR. I have discussed the management of this patient with the following physician: Objective - Vital Signs Vital signs: Vital Signs Temp 98.6 F 01/22/24 00:00 Pulse 68 01/22/24 07:00 Resp 20 01/22/24 07:00 BP 86/53 01/22/24 00:00 Pulse Ox 100 01/22/24 07:00 FiO2 50 01/22/24 07:41 Intake & Output 01/21/24 01/22/24 01/22/24 18:59 06:59 18:59 Intake Total 3363.730 8389.133 80.019 Output Total 2175 808 41 Balance -9248.509 5853.133 39.019 Weight 88.2 kg 92.5 kg Intake: IV 228 1698 79 0.9ns pressure bag 45 108 9 ACETAMINOPHEN IV (For NPO 100 ) 1,000 mg In Empty Bag 1 bag @ 400 mls/hr IVPB Q6HR [facility] Rx#:[id number] Albumin Human 5% 250 ml 500 In Empty Bag 1 bag @ 250 mls/hr IVPB Q1HR PRN Rx#: [id number] Lactated Ringers 1,000 ml 550 50 @ 50 mls/hr IV .Q20H [facility] Rx#:[id number] Magnesium Sulfate-D5w Pmx 100 1 gm In Dextrose/Water 1 100ml.bag @ 100 mls/hr IVPB ONCE ONE Rx#: [id number] ceFAZolin 2 gm In Sodium 50 Chloride 0.9% 50 ml @ 100 mls/hr IVPB ONCE ONE Rx# :[id number] co/ci 130 290 20 Intake, IV Titration 868.504 172.133 1.019 Amount Albumin Human 5% 500 ml 250 In Empty Bag 1 bag @ 250 mls/hr IVPB ONCE ONE Rx#: [id number] Clevidipine Butyrate 25 3.466 mg In Empty Bag 1 bag @ 1 MG/HR 2 mls/hr IV .Q24H [facility] Rx#:[id number] Dexmedetomidine/0.9% NaCl 1.396 12.937 (Pmx) 400 mcg In Empty Bag 1 bag @ Titrate IV . Q0M [facility] Rx#:[id number] Insulin Regular 100 unit 3.106 5.681 0.892 In Sodium Chloride 0.9% 100 ml @ Per Protocol IV .Q0M [facility] Rx#:[id number] Lactated Ringers 1,000 ml 250 50 @ 50 mls/hr IV .Q20H [facility] Rx#:[id number] Magnesium Sulfate-D5w Pmx 100 1 gm In Dextrose/Water 1 100ml.bag @ 100 mls/hr IVPB Q1H [facility] Rx#: [id number] Nitroglycerin-D5w Pmx 50 7.175 11.475 mg In Dextrose/Water 1 250ml.bag @ 5 MCG/MIN 1.5 mls/hr IV .Q24H [facility] Rx#: [id number] Potassium Chloride 10 meq 200 In Water For Injection 1 100ml.bag @ 100 mls/hr IVPB Q1H [facility] Rx#: [id number] Vasopressin 20 unit In 24.302 0.127 Sodium Chloride 0.9% 50 ml @ 0.04 UNITS/MIN 6.12 mls/hr IV .Q8H20M [facility] Rx# :[id number] propofoL 1,000 mg In 53.361 67.738 Empty Bag 1 bag @ Titrate IV .Q0M [facility] Rx#: [id number] Output: Chest Tube Drainage 360 338 6 Chest Tube Right Pleural/ 270 250 0 Mediastinal Pleural Catheter Left 90 88 6 Urine 1565 470 35 Estimated Blood Loss 250 Other: Voiding Method Indwelling Catheter Indwelling Catheter ABP, PAP, CO, CI - Last Documented Arterial Blood Pressure 121/51 Pulmonary Artery Pressure 25/ Cardiac Output 5.7 Cardiac Index 2.8 - Labs CBC & Chem 7: 01/22/24 03:54 01/22/24 03:54 Labs: Abnormal Lab Results - Last 24 Hours (Table) 01/19/24 01/21/24 01/21/24 Range/Units 10:10 09:26 10:53 RBC (4.30-5.90) m/uL Hgb (13.0-17.5) gm/dL Hct (39.0-53.0) % MCHC (31.0-37.0) g/dL RDW (11.5-15.5) % Plt Count (150-450) k/uL Lymphocytes # (1.0-4.8) k/uL PT (10.0-12.5) sec INR (<1.2) APTT (22.0-30.0) sec ABG pO2 229 H 190 H (83-108) mmHg ABG HCO3 26 H (21-25) mmol/L ABG Total CO2 (19-24) mmol/L ABG O2 Saturation 99.3 H 99.3 H (94-97) % ABG Hematocrit 31 L 26 L (34.0-46.0) % ABG Glucose (75-99) mg/dL ABG Lactic Acid 1.8 H (0.5-1.6) mmol/L Hemoglobin 10.1 L 8.5 L (13.0-17.5) gm/dL Sodium (137-145) mmol/L Chloride (98-107) mmol/L Carbon Dioxide (22-30) mmol/L Creatinine (0.66-1.25) mg/dL Glucose (74-99) mg/dL POC Glucose (mg/dL) (70-110) mg/dL Calcium (8.4-10.2) mg/dL Ionized Calcium Dickson (4.5-5.3) mg/dL Magnesium (1.6-2.3) mg/dL Total Protein (6.3-8.2) g/dL Albumin (3.5-5.0) g/dL Arterial Blood Glucose (75-99) mg/dL Crossmatch See Detail 01/21/24 01/21/24 01/21/24 Range/Units 11:19 11:53 12:57 RBC (4.30-5.90) m/uL Hgb (13.0-17.5) gm/dL Hct (39.0-53.0) % MCHC (31.0-37.0) g/dL RDW (11.5-15.5) % Plt Count (150-450) k/uL Lymphocytes # (1.0-4.8) k/uL PT (10.0-12.5) sec INR (<1.2) APTT (22.0-30.0) sec ABG pO2 236 H 242 H (83-108) mmHg ABG HCO3 (21-25) mmol/L ABG Total CO2 (19-24) mmol/L ABG O2 Saturation 99.4 H 99.4 H 98.5 H (94-97) % ABG Hematocrit 26 L 25 L 26 L (34.0-46.0) % ABG Glucose 109 H (75-99) mg/dL ABG Lactic Acid (0.5-1.6) mmol/L Hemoglobin 8.3 L 8.1 L 8.5 L (13.0-17.5) gm/dL Sodium (137-145) mmol/L Chloride (98-107) mmol/L Carbon Dioxide (22-30) mmol/L Creatinine (0.66-1.25) mg/dL Glucose (74-99) mg/dL POC Glucose (mg/dL) (70-110) mg/dL Calcium (8.4-10.2) mg/dL Ionized Calcium Dikcson (4.5-5.3) mg/dL Magnesium (1.6-2.3) mg/dL Total Protein (6.3-8.2) g/dL Albumin (3.5-5.0) g/dL Arterial Blood Glucose 109 H (75-99) mg/dL Crossmatch 01/21/24 01/21/24 01/21/24 Range/Units 13:45 13:45 13:45 RBC 2.77 L (4.30-5.90) m/uL Hgb 8.5 L D (13.0-17.5) gm/dL Hct 27.3 L (39.0-53.0) % MCHC (31.0-37.0) g/dL RDW 15.9 H (11.5-15.5) % Plt Count 125 L (150-450) k/uL Lymphocytes # (1.0-4.8) k/uL PT 12.7 H (10.0-12.5) sec INR 1.2 H (<1.2) APTT 33.2 H (22.0-30.0) sec ABG pO2 (83-108) mmHg ABG HCO3 (21-25) mmol/L ABG Total CO2 (19-24) mmol/L ABG O2 Saturation (94-97) % ABG Hematocrit (34.0-46.0) % ABG Glucose (75-99) mg/dL ABG Lactic Acid (0.5-1.6) mmol/L Hemoglobin (13.0-17.5) gm/dL Sodium (137-145) mmol/L Chloride (98-107) mmol/L Carbon Dioxide (22-30) mmol/L Creatinine (0.66-1.25) mg/dL Glucose (74-99) mg/dL POC Glucose (mg/dL) 116 H (70-110) mg/dL Calcium (8.4-10.2) mg/dL Ionized Calcium Dickson (4.5-5.3) mg/dL Magnesium (1.6-2.3) mg/dL Total Protein (6.3-8.2) g/dL Albumin (3.5-5.0) g/dL Arterial Blood Glucose (75-99) mg/dL Crossmatch 01/21/24 01/21/24 01/21/24 Range/Units 13:45 14:01 14:50 RBC (4.30-5.90) m/uL Hgb (13.0-17.5) gm/dL Hct (39.0-53.0) % MCHC (31.0-37.0) g/dL RDW (11.5-15.5) % Plt Count (150-450) k/uL Lymphocytes # (1.0-4.8) k/uL PT (10.0-12.5) sec INR (<1.2) APTT (22.0-30.0) sec ABG pO2 356 H (83-108) mmHg ABG HCO3 (21-25) mmol/L ABG Total CO2 25 H (19-24) mmol/L ABG O2 Saturation 100.0 H (94-97) % ABG Hematocrit (34.0-46.0) % ABG Glucose (75-99) mg/dL ABG Lactic Acid (0.5-1.6) mmol/L Hemoglobin (13.0-17.5) gm/dL Sodium (137-145) mmol/L Chloride 113 H (98-107) mmol/L Carbon Dioxide 20 L (22-30) mmol/L Creatinine 0.53 L (0.66-1.25) mg/dL Glucose 107 H (74-99) mg/dL POC Glucose (mg/dL) 112 H (70-110) mg/dL Calcium 7.7 L (8.4-10.2) mg/dL Ionized Calcium Dickson 4.4 L (4.5-5.3) mg/dL Magnesium 1.5 L (1.6-2.3) mg/dL Total Protein 4.5 L (6.3-8.2) g/dL Albumin 2.7 L (3.5-5.0) g/dL Arterial Blood Glucose (75-99) mg/dL Crossmatch 01/21/24 01/21/24 01/21/24 Range/Units 16:00 16:46 16:47 RBC 2.99 L (4.30-5.90) m/uL Hgb 9.2 L (13.0-17.5) gm/dL Hct 29.5 L (39.0-53.0) % MCHC (31.0-37.0) g/dL RDW 15.6 H (11.5-15.5) % Plt Count 147 L (150-450) k/uL Lymphocytes # 0.8 L (1.0-4.8) k/uL PT (10.0-12.5) sec INR (<1.2) APTT (22.0-30.0) sec ABG pO2 (83-108) mmHg ABG HCO3 (21-25) mmol/L ABG Total CO2 (19-24) mmol/L ABG O2 Saturation (94-97) % ABG Hematocrit (34.0-46.0) % ABG Glucose (75-99) mg/dL ABG Lactic Acid (0.5-1.6) mmol/L Hemoglobin (13.0-17.5) gm/dL Sodium (137-145) mmol/L Chloride (98-107) mmol/L Carbon Dioxide (22-30) mmol/L Creatinine (0.66-1.25) mg/dL Glucose (74-99) mg/dL POC Glucose (mg/dL) 147 H 131 H (70-110) mg/dL Calcium (8.4-10.2) mg/dL Ionized Calcium Dickson (4.5-5.3) mg/dL Magnesium (1.6-2.3) mg/dL Total Protein (6.3-8.2) g/dL Albumin (3.5-5.0) g/dL Arterial Blood Glucose (75-99) mg/dL Crossmatch 01/21/24 01/21/24 01/21/24 Range/Units 18:19 18:51 19:46 RBC (4.30-5.90) m/uL Hgb (13.0-17.5) gm/dL Hct (39.0-53.0) % MCHC (31.0-37.0) g/dL RDW (11.5-15.5) % Plt Count (150-450) k/uL Lymphocytes # (1.0-4.8) k/uL PT (10.0-12.5) sec INR (<1.2) APTT (22.0-30.0) sec ABG pO2 (83-108) mmHg ABG HCO3 (21-25) mmol/L ABG Total CO2 (19-24) mmol/L ABG O2 Saturation (94-97) % ABG Hematocrit (34.0-46.0) % ABG Glucose (75-99) mg/dL ABG Lactic Acid (0.5-1.6) mmol/L Hemoglobin (13.0-17.5) gm/dL Sodium (137-145) mmol/L Chloride (98-107) mmol/L Carbon Dioxide (22-30) mmol/L Creatinine (0.66-1.25) mg/dL Glucose (74-99) mg/dL POC Glucose (mg/dL) 114 H 125 H 135 H (70-110) mg/dL Calcium (8.4-10.2) mg/dL Ionized Calcium Dickson (4.5-5.3) mg/dL Magnesium (1.6-2.3) mg/dL Total Protein (6.3-8.2) g/dL Albumin (3.5-5.0) g/dL Arterial Blood Glucose (75-99) mg/dL Crossmatch 01/21/24 01/21/24 01/21/24 Range/Units 19:46 19:46 20:55 RBC 3.04 L (4.30-5.90) m/uL Hgb 9.2 L (13.0-17.5) gm/dL Hct 30.3 L (39.0-53.0) % MCHC 30.5 L (31.0-37.0) g/dL RDW 15.6 H (11.5-15.5) % Plt Count (150-450) k/uL Lymphocytes # 0.4 L (1.0-4.8) k/uL PT (10.0-12.5) sec INR (<1.2) APTT (22.0-30.0) sec ABG pO2 (83-108) mmHg ABG HCO3 (21-25) mmol/L ABG Total CO2 (19-24) mmol/L ABG O2 Saturation (94-97) % ABG Hematocrit (34.0-46.0) % ABG Glucose (75-99) mg/dL ABG Lactic Acid (0.5-1.6) mmol/L Hemoglobin (13.0-17.5) gm/dL Sodium (137-145) mmol/L Chloride 109 H (98-107) mmol/L Carbon Dioxide 20 L (22-30) mmol/L Creatinine 0.58 L (0.66-1.25) mg/dL Glucose 129 H (74-99) mg/dL POC Glucose (mg/dL) 133 H (70-110) mg/dL Calcium (8.4-10.2) mg/dL Ionized Calcium Dickson (4.5-5.3) mg/dL Magnesium (1.6-2.3) mg/dL Total Protein (6.3-8.2) g/dL Albumin (3.5-5.0) g/dL Arterial Blood Glucose (75-99) mg/dL Crossmatch 01/21/24 01/21/24 01/22/24 Range/Units 22:02 22:55 00:03 RBC (4.30-5.90) m/uL Hgb (13.0-17.5) gm/dL Hct (39.0-53.0) % MCHC (31.0-37.0) g/dL RDW (11.5-15.5) % Plt Count (150-450) k/uL Lymphocytes # (1.0-4.8) k/uL PT (10.0-12.5) sec INR (<1.2) APTT (22.0-30.0) sec ABG pO2 (83-108) mmHg ABG HCO3 (21-25) mmol/L ABG Total CO2 (19-24) mmol/L ABG O2 Saturation (94-97) % ABG Hematocrit (34.0-46.0) % ABG Glucose (75-99) mg/dL ABG Lactic Acid (0.5-1.6) mmol/L Hemoglobin (13.0-17.5) gm/dL Sodium (137-145) mmol/L Chloride (98-107) mmol/L Carbon Dioxide (22-30) mmol/L Creatinine (0.66-1.25) mg/dL Glucose (74-99) mg/dL POC Glucose (mg/dL) 134 H 125 H 127 H (70-110) mg/dL Calcium (8.4-10.2) mg/dL Ionized Calcium Dickson (4.5-5.3) mg/dL Magnesium (1.6-2.3) mg/dL Total Protein (6.3-8.2) g/dL Albumin (3.5-5.0) g/dL Arterial Blood Glucose (75-99) mg/dL Crossmatch 01/22/24 01/22/24 01/22/24 Range/Units 02:00 03:54 03:54 RBC 2.70 L (4.30-5.90) m/uL Hgb 8.4 L (13.0-17.5) gm/dL Hct 27.0 L (39.0-53.0) % MCHC (31.0-37.0) g/dL RDW 15.6 H (11.5-15.5) % Plt Count 119 L (150-450) k/uL Lymphocytes # 0.9 L (1.0-4.8) k/uL PT (10.0-12.5) sec INR (<1.2) APTT (22.0-30.0) sec ABG pO2 (83-108) mmHg ABG HCO3 (21-25) mmol/L ABG Total CO2 (19-24) mmol/L ABG O2 Saturation (94-97) % ABG Hematocrit (34.0-46.0) % ABG Glucose (75-99) mg/dL ABG Lactic Acid (0.5-1.6) mmol/L Hemoglobin (13.0-17.5) gm/dL Sodium 136 L (137-145) mmol/L Chloride 108 H (98-107) mmol/L Carbon Dioxide (22-30) mmol/L Creatinine 0.61 L (0.66-1.25) mg/dL Glucose 123 H (74-99) mg/dL POC Glucose (mg/dL) 128 H (70-110) mg/dL Calcium 8.3 L (8.4-10.2) mg/dL Ionized Calcium Dickson (4.5-5.3) mg/dL Magnesium (1.6-2.3) mg/dL Total Protein 5.0 L (6.3-8.2) g/dL Albumin 3.2 L (3.5-5.0) g/dL Arterial Blood Glucose (75-99) mg/dL Crossmatch 01/22/24 01/22/24 01/22/24 Range/Units 03:54 04:46 06:04 RBC (4.30-5.90) m/uL Hgb (13.0-17.5) gm/dL Hct (39.0-53.0) % MCHC (31.0-37.0) g/dL RDW (11.5-15.5) % Plt Count (150-450) k/uL Lymphocytes # (1.0-4.8) k/uL PT (10.0-12.5) sec INR (<1.2) APTT (22.0-30.0) sec ABG pO2 127 H (83-108) mmHg ABG HCO3 (21-25) mmol/L ABG Total CO2 25 H (19-24) mmol/L ABG O2 Saturation 99.2 H (94-97) % ABG Hematocrit (34.0-46.0) % ABG Glucose (75-99) mg/dL ABG Lactic Acid (0.5-1.6) mmol/L Hemoglobin (13.0-17.5) gm/dL Sodium (137-145) mmol/L Chloride (98-107) mmol/L Carbon Dioxide (22-30) mmol/L Creatinine (0.66-1.25) mg/dL Glucose (74-99) mg/dL POC Glucose (mg/dL) 134 H 153 H (70-110) mg/dL Calcium (8.4-10.2) mg/dL Ionized Calcium Dickson (4.5-5.3) mg/dL Magnesium (1.6-2.3) mg/dL Total Protein (6.3-8.2) g/dL Albumin (3.5-5.0) g/dL Arterial Blood Glucose (75-99) mg/dL Crossmatch 01/22/24 01/22/24 Range/Units 06:51 08:07 RBC (4.30-5.90) m/uL Hgb (13.0-17.5) gm/dL Hct (39.0-53.0) % MCHC (31.0-37.0) g/dL RDW (11.5-15.5) % Plt Count (150-450) k/uL Lymphocytes # (1.0-4.8) k/uL PT (10.0-12.5) sec INR (<1.2) APTT (22.0-30.0) sec ABG pO2 137 H (83-108) mmHg ABG HCO3 (21-25) mmol/L ABG Total CO2 25 H (19-24) mmol/L ABG O2 Saturation 99.5 H (94-97) % ABG Hematocrit (34.0-46.0) % ABG Glucose (75-99) mg/dL ABG Lactic Acid (0.5-1.6) mmol/L Hemoglobin (13.0-17.5) gm/dL Sodium (137-145) mmol/L Chloride (98-107) mmol/L Carbon Dioxide (22-30) mmol/L Creatinine (0.66-1.25) mg/dL Glucose (74-99) mg/dL POC Glucose (mg/dL) 146 H (70-110) mg/dL Calcium (8.4-10.2) mg/dL Ionized Calcium Dickson (4.5-5.3) mg/dL Magnesium (1.6-2.3) mg/dL Total Protein (6.3-8.2) g/dL Albumin (3.5-5.0) g/dL Arterial Blood Glucose (75-99) mg/dL Crossmatch
[2024-01-22 12:57] LABS: Glucose,Whole Blood 134 mg/dL (70-110)
[2024-01-22] MEDS: NOREPINEPHRINE 4 MG in SODIUM CHLORIDE 0.9% 250 ML IV SCH ×2 (13:30)
[2024-01-22 14:26] LABS: Glucose,Whole Blood 131 mg/dL (70-110)
[2024-01-22 15:00] LABS: Glucose,Whole Blood 140 mg/dL (70-110)
[2024-01-22 16:24] VITALS: BMI 29.2
[2024-01-22 17:10] LABS: Glucose,Whole Blood 172 mg/dL (70-110)
[2024-01-22 18:10] LABS: Glucose,Whole Blood 158 mg/dL (70-110)
[2024-01-22 19:04] LABS: Glucose,Whole Blood 153 mg/dL (70-110)
[2024-01-22 21:55] LABS: Glucose,Whole Blood 116 mg/dL (70-110)
[2024-01-22 22:52] LABS: Glucose,Whole Blood 118 mg/dL (70-110)
--- NOTE | 2024-01-22 23:55 | PN ---
PROGRESS NOTE SUBJECTIVE: Chris is a 78-year-old gentleman who is in ICU following bypass surgery. Today is postop day #1. The patient is extubated, remains in sinus rhythm, and stable hemodynamically. The patient has history of pulmonary embolism and takes Eliquis regularly. OBJECTIVE: VITAL SIGNS: His heart rate is 70 beats per minute, blood pressure is 95/57, respiratory rate is 18. CHEST: Reveals diminished air entry bilaterally. HEART: Reveals first and second heart sounds. No gallop. ABDOMEN: Soft. EXTREMITIES: Did not reveal any edema. LABORATORY DATA: Labs show that the potassium is 4.6, creatinine is 0.6, hemoglobin is low at 8.4. CURRENT MEDICATIONS: 1. Aspirin. 2. Lipitor. 3. Plavix. 4. Lopressor 12.5 b.i.d. CAD status post bypass surgery, postoperative day #1. The patient is doing fairly well. He will work on incentive spirometry. Continue current medications. MMODL / IJN: [id number] /
[2024-01-23 00:03] LABS: Glucose,Whole Blood 116 mg/dL (70-110)
[2024-01-23 04:53] LABS: Basophils % (A) 0 %; Eosinophils # (A) 0.1 k/uL (0-0.7); Eosinophils % (A) 1 %; HCT 26.5 % (39.0-53.0); HGB 8.3 gm/dL (13.0-17.5); Hypochromasia Slight; Lymphocytes % (A) 12 %; MCH 31.1 pg (25.0-35.0); MCHC 31.1 g/dL (31.0-37.0); MCV 99.8 fL (80.0-100.0); Macrocytosis Slight; Mean Platelet Volume 8.3; Monocytes # (A) 0.5 k/uL (0-1.0); Monocytes % (A) 6 %; Neutrophils # (A) 6.6 k/uL (1.3-7.7); Neutrophils % (A) 79 %; Platelet Count 131 k/uL (150-450); RBC 2.66 m/uL (4.30-5.90); RDW 15.9 % (11.5-15.5); WBC 8.3 k/uL (3.8-10.6)
[2024-01-23] MEDS: METOCLOPRAMIDE 5 MG/ML 2 ML VIAL IVP PRN (04:53)
[2024-01-23 05:15] LABS: Ionized Calcium 4.9 mg/dL (4.5-5.3)
[2024-01-23 05:36] LABS: ALT 11 U/L (4-49); AST 27 U/L (17-59); African American GFR (CKD) >90 (>60 ml/min/1.73 sqM); Albumin 3.4 g/dL (3.5-5.0); Alkaline Phosphatase 61 U/L (38-126); Anion Gap 6 mmol/L; Blood Urea Nitrogen 15 mg/dL (9-20); Calcium 8.6 mg/dL (8.4-10.2); Carbon Dioxide 22 mmol/L (22-30); Chloride 106 mmol/L (98-107); Glucose 103 mg/dL (74-99); Non-African American GFR(CKD) 82 (>60 ml/min/1.73 sqM); Potassium 4.1 mmol/L (3.5-5.1); Sodium 134 mmol/L (137-145); Total Bilirubin 0.7 mg/dL (0.2-1.3); Total Protein 5.3 g/dL (6.3-8.2)
[2024-01-23 06:14] LABS: Glucose,Whole Blood 135 mg/dL (70-110)
[2024-01-23] MEDS ORDERED: DEXTROSE 50% SYRINGE 50 ML IVP PRN ×2 (08:29)
[2024-01-23] MEDS: PANTOPRAZOLE 40 MG TABLET PO SCH (09:16)
--- NOTE | 2024-01-23 09:16 | XR ---
EXAMINATION TYPE: XR chest 1V portable DATE OF EXAM: 01/23/2024 Comparison: 01/22/2024 Clinical History: 78-year-old male Post Operative Cardiac Surgery Findings: Heart is moderately enlarged. Left-sided chest tube mediastinal drains in place. Median sternotomy wi res and postoperative clips. Moderate cardiomegaly and ongoing diffuse interstitial and patchy bibasi lar opacities. Interval extubation and removal of NG tube. Impression: Ongoing CHF with pulmonary vascular congestion. Bibasilar opacity, probably patchy pulmonary edema sl ightly increased.
[2024-01-23] MEDS: PARoxetine 20 MG TAB PO SCH (09:20)
[2024-01-23] MEDS: FUROSEMIDE 10 MG/ML 4 ML VIAL IV STA (09:22)
[2024-01-23] MEDS: POTASSIUM CHLORIDE ER 10 MEQ TAB.ER.PRT PO STA (09:24)
[2024-01-23] MEDS: ACETAMINOPHEN IV (For NPO) 1,000 MG in EMPTY BAG 1 BAG IVPB PRN (09:37)
[2024-01-23] MEDS: methocarbamoL 500 MG TAB PO PRN (09:58)
--- NOTE | 2024-01-23 10:14 | P.PN ---
Subjective Progress Note Date: 01/23/24 Principal diagnosis: Multivessel coronary artery disease, NSTEMI this admission, left internal carotid artery stenosis. Past medical history significant for pulmonary embolus in October 2022 status post INARI procedure on Eliquis For anticoagulation, hyperlipidemia, depression, chronic back pain, anemia, rheumatoid arthritis, GERD, previous tobacco dependence, and family history of coronary artery disease on his father's side. POD #2 Off pump coronary artery bypass grafting x 3. Left internal thoracic artery (in-situ) to left anterior descending coronary artery. Saphenous vein from aorta to distal right coronary artery. Saphenous vein from aorta to obtuse marginal artery #1, left atrial appendage ligation using a number 35 mm atrial clip, endoscopic right greater saphenous vein harvest, graft flow measurements using the [employer] flow meter system, excision of chest wall lesion, intraoperative transesophageal echocardiogram. Postoperative acute blood loss anemia, expected given hemodilution. The patient was seen and examined in follow-up today January 23, 2024 at his bedside in the intensive care unit. He is currently sitting up to the bedside chair, is awake, although lethargic and is in no acute apparent distress. He is having some slight confusion this morning reporting that he is at a [place] clinic. The patient is oriented to person and time. He is currently on norepinephrine drip at 0.03 mcg/kg/min for blood pressure support. Oxygen saturations are 93% on 15 L high flow nasal cannula and he is achieving 750 mL on his incentive spirometry with encouragement. Bedside telemetry is showing normal sinus rhythm heart rate 84 bpm. Right IJ cordis remains in place with continuous CVP monitoring, current CVP pressure 9 mmHg. Mediastinal, right, left pleural chest tubes remain in place to low continuous wall suction -20 cm H2O. Tiny intermittent airleak present to his left pleural chest tube. Mediastinal/right pleural chest tubes draining thin serosanguineous drainage with 160 mL output in the last 8 hours and 500 mL output in the last 24 hours. Left pleural chest tube draining thin serosanguineous drainage with 120 mL output in the last 8 hours and 300 mL output in the last 24 hours. Chest x-ray and laboratory results were reviewed. Objective - Vital Signs Vital signs: Vital Signs Temp 99 F 01/23/24 08:00 Pulse 85 01/23/24 09:00 Resp 32 H 01/23/24 09:00 BP 110/72 01/23/24 09:00 Pulse Ox 91 L 01/23/24 09:00 FiO2 50 01/22/24 08:00 Intake & Output 01/22/24 01/23/24 01/23/24 18:59 06:59 18:59 Intake Total 2147.956 1019.418 130.556 Output Total 1222 675 108 Balance 925.956 344.418 22.556 Weight 92.5 kg 95.1 kg Intake: IV 1389 792 108 0.9ns pressure bag 84 72 18 ACETAMINOPHEN IV (For NPO 400 ) 1,000 mg In Empty Bag 1 bag @ 400 mls/hr IVPB Q6HR [facility] Rx#:[id number] Albumin Human 5% 250 ml 750 In Empty Bag 1 bag @ 250 mls/hr IVPB Q1HR PRN Rx#: [id number] Lactated Ringers 1,000 ml 415 320 90 @ 20 mls/hr IV .Q24H [facility] Rx#:[id number] ceFAZolin 2 gm In Sodium 100 Chloride 0.9% 50 ml @ 100 mls/hr IVPB ONCE ONE Rx# :[id number] co/ci 40 Intake, IV Titration 78.956 127.418 22.556 Amount Insulin Regular 100 unit 9.400 12.995 In Sodium Chloride 0.9% 100 ml @ Per Protocol IV .Q0M [facility] Rx#:[id number] Norepinephrine 4 mg In 69.429 114.423 22.556 Sodium Chloride 0.9% 250 ml @ 0.03 MCG/KG/MIN 10. 573 mls/hr IV .Q24H [facility] Rx#:[id number] Vasopressin 20 unit In 0.127 Sodium Chloride 0.9% 50 ml @ 0.04 UNITS/MIN 6.12 mls/hr IV .Q8H20M [facility] Rx# :[id number] Oral 680 100 Output: Chest Tube Drainage 379 370 80 Chest Tube Right Pleural/ 230 210 40 Mediastinal Pleural Catheter Left 149 160 40 Urine 843 305 28 Other: Voiding Method Indwelling Catheter Indwelling Catheter Indwelling Catheter ABP, PAP, CO, CI - Last Documented Arterial Blood Pressure 133/50 Pulmonary Artery Pressure 23/18 Cardiac Output 6 Cardiac Index 2.9 - Exam CONSTITUTIONAL: Sitting up to the bedside chair in the intensive care unit, appears comfortable, cooperative, no apparent acute distress. HEENT: Neck is supple, no JVD, no lymphadenopathy. Right IJ Cordis in place and functioning. RESPIRATORY: Lungs sounds essentially clear throughout, diminished to his bilateral bases. Respirations are symmetrical and nonlabored. Currently on 15 L high flow nasal cannula with oxygen saturations 93%. Able to achieve 750 mL on their incentive spirometry. Strong cough. CARDIOVASCULAR: Regular rhythm and rate. S1 and S2 present, negative for S3, gallop or murmur. Normal sinus rhythm on his bedside monitor, heart rate 84 bpm. Sternum is stable. Palpable peripheral pulses bilaterally, +1 edema to his bilateral lower extremities. No calf pain or tenderness noted. Heart hugger in place with patient demonstrating appropriate use. Knee-high RUPAL hose and sequential compression devices in place to his bilateral lower extremities. GASTROINTESTINAL: Abdomen soft, nontender, nondistended. Active bowel sounds present 4 quadrants. Tolerating diet. Passing flatus. No guarding or rigidity. GENITOURINARY: Cristobal present draining clear, yellow urine. Urine output 230 mL in the last 8 hours. INTEGUMENTARY: Skin is warm and dry with no evidence of clubbing or cyanosis. Midline sternal incision clean dry and well approximated, covered with dry intact dressing. Right lower extremity EVH sites well approximated without redness or drainage. NEUROLOGIC: Cranial nerves II through XII intact. No focal deficits. MUSKULOSKELETAL: Able to move all extremities, strength equal bilaterally, generalized weakness. PSYCHIATRIC: Alert and oriented to person place and time, appropriate affect, intact judgment and insight. Episodes of confusion to place. INVASIVE LINES AND TUBES: Mediastinal/right/left pleural chest tubes present and connected to low continuous wall suction, tiny intermittent airleak present to his left pleural chest tube. Mediastinal/right pleural chest tubes with 160 mL of thin serosanguineous drainage overnight, 500 mL output in the last 24 hours. Left pleural chest tube with 120 mL of thin serosanguineous drainage overnight, 300 mL output in the last 24 hours. Ventricular epicardial pacemaker wires present, connected to generator, VVI backup rate 50 bpm. Right internal jugular Cordis, right radial arterial line present. Current CVP 5 mmHg. - Allied health notes Allied health notes reviewed: nursing - Labs CBC & Chem 7: 01/23/24 04:10 01/23/24 04:10 Labs: Abnormal Lab Results - Last 24 Hours (Table) 01/22/24 01/22/24 01/22/24 Range/Units 11:34 12:55 14:25 RBC (4.30-5.90) m/uL Hgb (13.0-17.5) gm/dL Hct (39.0-53.0) % RDW (11.5-15.5) % Plt Count (150-450) k/uL Sodium (137-145) mmol/L Glucose (74-99) mg/dL POC Glucose (mg/dL) 130 H 134 H 131 H (70-110) mg/dL Total Protein (6.3-8.2) g/dL Albumin (3.5-5.0) g/dL 01/22/24 01/22/24 01/22/24 Range/Units 14:59 17:09 18:08 RBC (4.30-5.90) m/uL Hgb (13.0-17.5) gm/dL Hct (39.0-53.0) % RDW (11.5-15.5) % Plt Count (150-450) k/uL Sodium (137-145) mmol/L Glucose (74-99) mg/dL POC Glucose (mg/dL) 140 H 172 H 158 H (70-110) mg/dL Total Protein (6.3-8.2) g/dL Albumin (3.5-5.0) g/dL 01/22/24 01/22/24 01/22/24 Range/Units 19:03 21:54 22:50 RBC (4.30-5.90) m/uL Hgb (13.0-17.5) gm/dL Hct (39.0-53.0) % RDW (11.5-15.5) % Plt Count (150-450) k/uL Sodium (137-145) mmol/L Glucose (74-99) mg/dL POC Glucose (mg/dL) 153 H 116 H 118 H (70-110) mg/dL Total Protein (6.3-8.2) g/dL Albumin (3.5-5.0) g/dL 01/23/24 01/23/24 01/23/24 Range/Units 00:02 04:10 04:10 RBC 2.66 L (4.30-5.90) m/uL Hgb 8.3 L (13.0-17.5) gm/dL Hct 26.5 L (39.0-53.0) % RDW 15.9 H (11.5-15.5) % Plt Count 131 L (150-450) k/uL Sodium 134 L (137-145) mmol/L Glucose 103 H (74-99) mg/dL POC Glucose (mg/dL) 116 H (70-110) mg/dL Total Protein 5.3 L (6.3-8.2) g/dL Albumin 3.4 L (3.5-5.0) g/dL 01/23/24 Range/Units 06:13 RBC (4.30-5.90) m/uL Hgb (13.0-17.5) gm/dL Hct (39.0-53.0) % RDW (11.5-15.5) % Plt Count (150-450) k/uL Sodium (137-145) mmol/L Glucose (74-99) mg/dL POC Glucose (mg/dL) 135 H (70-110) mg/dL Total Protein (6.3-8.2) g/dL Albumin (3.5-5.0) g/dL - Imaging and Cardiology Chest x-ray: report reviewed, image reviewed Assessment and Plan Assessment: Multivessel coronary artery disease, status post three-vessel coronary artery bypass grafting surgery Non-ST elevated myocardial infarction this admission Left internal carotid artery stenosis by carotid Doppler, asymptomatic History of pulmonary embolus in October 2022 status post INARI procedure, on Eliquis For anticoagulation last dose was on 01/14/2024 Hyperlipidemia, treated, cholesterol 147, LDL 71 History of depression, treated Chronic back pain, on chronic Troy as an outpatient Anemia of chronic disease Rheumatoid arthritis, on methotrexate outpatient, last dose 01/11/2024 Family history of coronary artery disease on his father's side GERD Remote history of nicotine dependence quit 43 years ago, preoperative FEV1 89% of predicted value Postoperative acute blood loss anemia, expected Hypotension requiring norepinephrine drip Plan: Continue to maximize medical therapy with aspirin, statin, Plavix, and beta- richard. Will increase beta-richard therapy as tolerated, with hold parameters. Wean O2 as tolerated, encourage incentive spirometry use 10 times every hour while awake, bronchodilators per pulmonology/critical care medicine. Increase activity, ambulate as tolerated. PT/OT/cardiac rehab following. Will monitor daily labs and chest x-rays, electrolyte replacement per protocol. GI/DVT prophylaxis. Pain control per current medication regimen. Discontinue oxycodone, start patient on home dose of Troy and Cymbalta, hold if lethargic. Insulin management per internal medicine. Preoperative hemoglobin A1c 6.1%. P atient should remain on IV insulin for 48 hours, then may transition to subcutaneous per protocol Continue left and right pleural chest tubes for another 24 hours, monitor and record output. Discontinue mediastinal chest tube. Continue Cristobal catheter for another 24 hours, continue to record strict accurate intake and output. Remove right IJ cordis. Daily weights. More recommendations to follow based on patient's clinical course. Time with Patient: Greater than 30
--- NOTE | 2024-01-23 11:05 | P.PN ---
Subjective Progress Note Date: 01/23/24 Patient is a 78-year-old male with chronic low back pain, prior pulmonary embolism, and rheumatoid arthritis who initially was transferred from an outside facility for evaluation of chest pain. On arrival here he had mildly elevated troponins that maxed at 0.50. Cardiology was consulted. He underwent an echocardiogram which demonstrated ejection fraction of 40 to 45% with mildly reduced global left ventricular systolic function and no regional wall motion abnormalities. Cardiology was consulted. He underwent cardiac catheterization on 01/16 which revealed severe triple-vessel coronary artery disease with low left-sided filling pressures. CT surgery was subsequently consulted and plan is for cardiac bypass on 01/20. He underwent off pump CABG x 3 on 01/20. Successfully extubated on 01/21. 01/22 Patient was seen and examined. He reports lower back pain, uncontrolled, OxyIR switched to [place] 10 Q6 PRN and Robaxin 500 mg PO QID PRN added. He required Levophed yesterday and overnight for blood pressure support currently running at 0.01 mcg/kg/min. He is currently requiring 6L nasal cannula saturating 90%. CXR done this morning shows pulmonary vascular congestion, Lasix 40 mg IV is ordered. CT surgery note reviewed, discontinue mediastinal chest tube and right IJ cordis today. POC glucose 116-158 over the past 24H, insulin drip running at 1 unit/hr. CBC Hg 8.3 Hct 26.5 Plt 131. CMP Na 124, glu 103, total protein 5.3, alb 3.4. Mag 2.0. Ionized Ca 4.9. General: mild-moderate distress from back pain Derm: warm, dry, chest wall dressing c/d/i Head: atraumatic, normocephalic, symmetric, R IJ Eyes: no lid lag, anicteric sclera Mouth: no lip lesion, mucus membranes moist Cardiovascular: S1S2 reg, no murmur, Mediastinal/R/L chest tube intact Lungs: Decreased BS bilateral, no rhonchi, no rales , no accessory muscle use Abdominal: soft, nontender to palpation, no guarding, no appreciable organomegaly Ext: no gross muscle atrophy, no edema, no contractures Neuro: No focal neurologic deficits Psych: Alert and oriented Based on my assessment of this patient, this patient meets a high complexity level of care. Acute blood loss anemia: Expected result of surgery. Monitor daily CBC. Transfuse if Hg < 7. Acute hypoxic respiratory failure: Pulmonary vascular congestion on CXR. Lasix 40 mg IV ordered today. NSTEMI: ASA 325 mg PO QD. Lipitor 40 mg PO QD. Plavix 75 mg PO QD. Metoprolol increased from 12.5 to 25 mg PO BID. Triple vessel CAD status post CABG x 3 POD 2 Left carotid stenosis: ASA, Lipitor and Plavix as above. HFrEF: Most recent Echo EF 40-45%. Rheumatoid arthritis: Hold MTX. Continue with Elavil 25 mg PO QAM and 75 mg PO QHS, [place] 10 PO Q6 PRN, Cymbalta 30 mg daily. Chronic back pain: Pain management as above. Robaxin 500 mg PO QID PRN added. RN advised heating pad. History of pulmonary embolism GERD Resolved: HypoMag CODE STATUS: FULL CODE DVT Prophylaxis: Heparin SQ GI Prophylaxis: Protonix PO Designated medical POA if patient is not able to make medical decisions for themselves: I have reviewed the following solutions delivery consultant notes: CT surgery, Cardiology, Pulmonary note. I have reviewed the results of the following tests: CBC. CMP. Mag. Ionized Ca. I have ordered the following tests: Agree with daily CBC, CMP, Mag, ionized Ca, CXR. I have discussed the care of this patient with the following independent historian: I have independently interpreted the following test below: CXR. I have discussed the management of this patient with the following physician: Deuce Rodríguez NP Objective - Vital Signs Vital signs: Vital Signs Temp 98.6 F 01/23/24 00:00 Pulse 92 01/23/24 06:15 Resp 36 H 01/23/24 06:15 BP 156/81 01/23/24 06:15 Pulse Ox 92 L 01/23/24 06:15 FiO2 50 01/22/24 08:00 Intake & Output 01/22/24 01/23/24 01/23/24 18:59 06:59 18:59 Intake Total 2147.956 1018.243 Output Total 1222 675 Balance 925.956 343.243 Weight 92.5 kg 95.1 kg Intake: IV 1389 792 0.9ns pressure bag 84 72 ACETAMINOPHEN IV (For NPO 400 ) 1,000 mg In Empty Bag 1 bag @ 400 mls/hr IVPB Q6HR [facility] Rx#:[id number] Albumin Human 5% 250 ml 750 In Empty Bag 1 bag @ 250 mls/hr IVPB Q1HR PRN Rx#: [id number] Lactated Ringers 1,000 ml 415 320 @ 20 mls/hr IV .Q24H [facility] Rx#:[id number] ceFAZolin 2 gm In Sodium 100 Chloride 0.9% 50 ml @ 100 mls/hr IVPB ONCE ONE Rx# :[id number] co/ci 40 Intake, IV Titration 78.956 126.243 Amount Insulin Regular 100 unit 9.400 12.995 In Sodium Chloride 0.9% 100 ml @ Per Protocol IV .Q0M [facility] Rx#:[id number] Norepinephrine 4 mg In 69.429 113.248 Sodium Chloride 0.9% 250 ml @ 0.03 MCG/KG/MIN 10. 573 mls/hr IV .Q24H [facility] Rx#:[id number] Vasopressin 20 unit In 0.127 Sodium Chloride 0.9% 50 ml @ 0.04 UNITS/MIN 6.12 mls/hr IV .Q8H20M [facility] Rx# :[id number] Oral 680 100 Output: Chest Tube Drainage 379 370 Chest Tube Right Pleural/ 230 210 Mediastinal Pleural Catheter Left 149 160 Urine 843 305 Other: Voiding Method Indwelling Catheter Indwelling Catheter ABP, PAP, CO, CI - Last Documented Arterial Blood Pressure 130/51 Pulmonary Artery Pressure 23/18 Cardiac Output 6 Cardiac Index 2.9 - Labs CBC & Chem 7: 01/23/24 04:10 01/23/24 04:10 Labs: Abnormal Lab Results - Last 24 Hours (Table) 01/22/24 01/22/24 01/22/24 Range/Units 08:07 08:35 09:26 RBC (4.30-5.90) m/uL Hgb (13.0-17.5) gm/dL Hct (39.0-53.0) % RDW (11.5-15.5) % Plt Count (150-450) k/uL ABG pO2 137 H (83-108) mmHg ABG Total CO2 25 H (19-24) mmol/L ABG O2 Saturation 99.5 H (94-97) % Sodium (137-145) mmol/L Glucose (74-99) mg/dL POC Glucose (mg/dL) 113 H 119 H (70-110) mg/dL Total Protein (6.3-8.2) g/dL Albumin (3.5-5.0) g/dL 01/22/24 01/22/24 01/22/24 Range/Units 10:02 11:34 12:55 RBC (4.30-5.90) m/uL Hgb (13.0-17.5) gm/dL Hct (39.0-53.0) % RDW (11.5-15.5) % Plt Count (150-450) k/uL ABG pO2 (83-108) mmHg ABG Total CO2 (19-24) mmol/L ABG O2 Saturation (94-97) % Sodium (137-145) mmol/L Glucose (74-99) mg/dL POC Glucose (mg/dL) 119 H 130 H 134 H (70-110) mg/dL Total Protein (6.3-8.2) g/dL Albumin (3.5-5.0) g/dL 01/22/24 01/22/24 01/22/24 Range/Units 14:25 14:59 17:09 RBC (4.30-5.90) m/uL Hgb (13.0-17.5) gm/dL Hct (39.0-53.0) % RDW (11.5-15.5) % Plt Count (150-450) k/uL ABG pO2 (83-108) mmHg ABG Total CO2 (19-24) mmol/L ABG O2 Saturation (94-97) % Sodium (137-145) mmol/L Glucose (74-99) mg/dL POC Glucose (mg/dL) 131 H 140 H 172 H (70-110) mg/dL Total Protein (6.3-8.2) g/dL Albumin (3.5-5.0) g/dL 01/22/24 01/22/24 01/22/24 Range/Units 18:08 19:03 21:54 RBC (4.30-5.90) m/uL Hgb (13.0-17.5) gm/dL Hct (39.0-53.0) % RDW (11.5-15.5) % Plt Count (150-450) k/uL ABG pO2 (83-108) mmHg ABG Total CO2 (19-24) mmol/L ABG O2 Saturation (94-97) % Sodium (137-145) mmol/L Glucose (74-99) mg/dL POC Glucose (mg/dL) 158 H 153 H 116 H (70-110) mg/dL Total Protein (6.3-8.2) g/dL Albumin (3.5-5.0) g/dL 01/22/24 01/23/24 01/23/24 Range/Units 22:50 00:02 04:10 RBC 2.66 L (4.30-5.90) m/uL Hgb 8.3 L (13.0-17.5) gm/dL Hct 26.5 L (39.0-53.0) % RDW 15.9 H (11.5-15.5) % Plt Count 131 L (150-450) k/uL ABG pO2 (83-108) mmHg ABG Total CO2 (19-24) mmol/L ABG O2 Saturation (94-97) % Sodium (137-145) mmol/L Glucose (74-99) mg/dL POC Glucose (mg/dL) 118 H 116 H (70-110) mg/dL Total Protein (6.3-8.2) g/dL Albumin (3.5-5.0) g/dL 01/23/24 01/23/24 Range/Units 04:10 06:13 RBC (4.30-5.90) m/uL Hgb (13.0-17.5) gm/dL Hct (39.0-53.0) % RDW (11.5-15.5) % Plt Count (150-450) k/uL ABG pO2 (83-108) mmHg ABG Total CO2 (19-24) mmol/L ABG O2 Saturation (94-97) % Sodium 134 L (137-145) mmol/L Glucose 103 H (74-99) mg/dL POC Glucose (mg/dL) 135 H (70-110) mg/dL Total Protein 5.3 L (6.3-8.2) g/dL Albumin 3.4 L (3.5-5.0) g/dL
[2024-01-23 11:43] LABS: Glucose,Whole Blood 107 mg/dL (70-110)
[2024-01-23] MEDS: INSULIN ASPART (NovoLOG) 100 UNIT/ML VIAL SQ SCH (11:51)
[2024-01-23] MEDS: DULoxetine HCL 30 MG CAPSULE.DR PO SCH (12:29)
--- NOTE | 2024-01-23 13:07 | P.PN ---
Subjective Progress Note Date: 01/23/24 Principal diagnosis: Coronary disease. Patient is a 78-year-old white male with past medical history significant for pulmonary embolism status post INARI procedure and chronically anticoagulated on Eliquis, hyperlipidemia, rheumatoid arthritis, PMR, multiple previous back surgeries and altered gait, and remote history of nicotine use over 20 years ago. No known pre-existing lung disease. Follows at the [facility] in [place]. On 01/16/2024 the patient presented to [facility] complaining of new onset substernal chest pain that radiated to his left jaw and bilateral arms. He denied any associated shortness of breath, nausea, diaphoresis. This occurred while watching TV. Patient did not immediately present to the hospital because his was at [facility]. He was later drove to the hospital, approximately 2 hours later. Initial workup was suspicious for non-ST elevation MN, and patient was transferred to [facility] for further evaluation. He was started on IV heparin per protocol. He did undergo a transthoracic echocardiogram which showed a reduced ejection fraction of 40 to 45% with moderate mitral valve regurgitation. Subsequently, the patient did undergo a cardiac catheterization done 01/17/2024 which showed severe multivessel coronary artery disease. Disease vessels included the RCA with a tubular lesion of approximately 70-80% stenosis, LAD also had a long tubular lesion with a range of 60% stenosis, the the first obtuse marginal branch of the left circumflex artery had an ostial lesion with a range of approximately 90% stenosis. Cardiothoracic surgery was asked to evaluate the patient for surgical myocardial revascularization. We were then consulted for pulmonary clearance. On my evaluation, the patient is currently resting in bed, on room air, in no acute distress. Heparin continues to be infusing. Patient denies any current chest pain. Denies any shortness of breath or pulmonary complaints. Denies any history of lung disease. 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 A bedside spirometry showed an FEV1 of 2.79 L or 89% of predicted. CT of the chest from outside facility reviewed. No obvious pulmonary emboli. Small 2 x 4 mm pulmonary nodule, likely benign. No acute cardiopulmonary process. Eliquis is on hold. Heparin is infusion per protocol. Most recent APTT therapeutic. Most recent CBC and BMP from yesterday unremarkable. Troponins peaked at 0.5 at our facility. Hemodynamically stable. Progress note dated January 20, 2024. This is a 78-year-old male that we saw yesterday in consultation. The patient is scheduled for bypass grafting, tomorrow, January 20. The patient is on room air. He is not receiving any IV fluids. The patient does continue on IV heparin. Yesterday I introduced myself to the patient, and basically told him my role in this whole process, which is to get him off the mechanical ventilator as soon as possible, and to also maintain normal lung function, throughout his hospital course. I told him the incentive spirometer, in that regard, was very important. No new labs today other than a PTT of 55.9. Progress note dated January 22, 2024. 78-year-old male seen in the intensive care unit, room 251. The patient is postop day #1, status post off-pump, three-vessel bypass grafting. Currently, he is on pressure support of 5, and CPAP of 5, and 50%. Arterial blood gases this morning show pO2 127, pCO2 41, and pH is 7.37. His insulin is on hold. His lactated Ringer's is running at 50 cc an hour. Current labs include a white count 5.9, hemoglobin 8.4, hematocrit 27, platelet count 119,000. Sodium 136, potassium 4.6, chlorides 108, CO2 26, BUN 10, creatinine 0.61. Glucose is 123. Calcium is 8.3. Albumin is 3.2. Chest x-ray shows a properly placed end otracheal tube. Chest x-ray also shows some bibasilar atelectasis or infiltrates, and postsurgical changes. Progress note dated January 23, 2024. 78-year-old male seen in room 251. The patient is postoperative day #2, status post off-pump three-vessel bypass surgery. Yesterday he was doing better. Today, he is on 8 L of oxygen by nasal cannula. He is getting lactated Ringer's at 30 cc an hour. He has been on and off of norepinephrine. His chest x-ray suggest fluid overload, and apparently, cardiothoracic surgery plans on giving him some Lasix. He just does not look as well as he did yesterday. White count is 8.3, hemoglobin 8.3, hematocrit 26.5, and platelet count 131,000. Sodium 1 34, potassium 4.1, chlorides 106, CO2 22, BUN 15, creatinine 0.89. Glucose is 103. Albumin 3.4. Chest x-ray shows increasing vascular congestion and CHF changes. Objective - Vital Signs Vital signs: Vital Signs Temp 98.3 F 01/23/24 12:00 Pulse 86 01/23/24 12:00 Resp 22 01/23/24 12:00 BP 115/77 01/23/24 12:00 Pulse Ox 93 L 01/23/24 12:00 FiO2 50 01/22/24 08:00 Intake & Output 01/22/24 01/23/24 01/23/24 18:59 06:59 18:59 Intake Total 2147.956 1019.418 382.256 Output Total 1222 675 583 Balance 925.956 344.418 -200.744 Weight 92.5 kg 95.1 kg Intake: IV 1389 792 216 0.9ns pressure bag 84 72 36 ACETAMINOPHEN IV (For NPO 400 ) 1,000 mg In Empty Bag 1 bag @ 400 mls/hr IVPB Q6HR [facility] Rx#:[id number] Albumin Human 5% 250 ml 750 In Empty Bag 1 bag @ 250 mls/hr IVPB Q1HR PRN Rx#: [id number] Lactated Ringers 1,000 ml 415 320 180 @ 20 mls/hr IV .Q24H [facility] Rx#:[id number] ceFAZolin 2 gm In Sodium 100 Chloride 0.9% 50 ml @ 100 mls/hr IVPB ONCE ONE Rx# :[id number] co/ci 40 Intake, IV Titration 78.956 127.418 66.256 Amount Insulin Regular 100 unit 9.400 12.995 In Sodium Chloride 0.9% 100 ml @ Per Protocol IV .Q0M [facility] Rx#:[id number] Norepinephrine 4 mg In 69.429 114.423 66.256 Sodium Chloride 0.9% 250 ml @ 0.03 MCG/KG/MIN 10. 573 mls/hr IV .Q24H [facility] Rx#:[id number] Vasopressin 20 unit In 0.127 Sodium Chloride 0.9% 50 ml @ 0.04 UNITS/MIN 6.12 mls/hr IV .Q8H20M [facility] Rx# :[id number] Oral 680 100 Tube Feeding 100 Output: Chest Tube Drainage 379 370 120 Chest Tube Right Pleural/ 230 210 60 Mediastinal Pleural Catheter Left 149 160 60 Urine 843 305 463 Other: Voiding Method Indwelling Catheter Indwelling Catheter Indwelling Catheter ABP, PAP, CO, CI - Last Documented Arterial Blood Pressure 124/45 Pulmonary Artery Pressure 23/18 Cardiac Output 6 Cardiac Index 2.9 - Exam No acute distress, extubated, on 8 L nasal cannula. HEENT examination is grossly unremarkable. Mucous membranes are moist. No oral lesions. Neck supple. Full range of motion. No adenopathy thyromegaly or neck vein distention. Cardiovascular examination reveals regular rhythm rate. S1-S2 normal. No S3 or S4. No discernible murmur noted. Heart rate is 86 bpm. Lungs reveal scattered crackles. Breath sounds equal. Scattered rhonchi are noted. No wheezes. Saturations are in the mid 90s. Abdomen soft bowel sounds are heard. No masses or tenderness. Extremities are intact. No cyanosis clubbing or edema. Skin is without rash or lesion. Neurologic examination is brief but nonfocal. - Labs CBC & Chem 7: 01/23/24 04:10 01/23/24 04:10 Labs: Abnormal Lab Results - Last 24 Hours (Table) 01/22/24 01/22/24 01/22/24 Range/Units 14:25 14:59 17:09 RBC (4.30-5.90) m/uL Hgb (13.0-17.5) gm/dL Hct (39.0-53.0) % RDW (11.5-15.5) % Plt Count (150-450) k/uL Sodium (137-145) mmol/L Glucose (74-99) mg/dL POC Glucose (mg/dL) 131 H 140 H 172 H (70-110) mg/dL Total Protein (6.3-8.2) g/dL Albumin (3.5-5.0) g/dL 01/22/24 01/22/24 01/22/24 Range/Units 18:08 19:03 21:54 RBC (4.30-5.90) m/uL Hgb (13.0-17.5) gm/dL Hct (39.0-53.0) % RDW (11.5-15.5) % Plt Count (150-450) k/uL Sodium (137-145) mmol/L Glucose (74-99) mg/dL POC Glucose (mg/dL) 158 H 153 H 116 H (70-110) mg/dL Total Protein (6.3-8.2) g/dL Albumin (3.5-5.0) g/dL 01/22/24 01/23/24 01/23/24 Range/Units 22:50 00:02 04:10 RBC 2.66 L (4.30-5.90) m/uL Hgb 8.3 L (13.0-17.5) gm/dL Hct 26.5 L (39.0-53.0) % RDW 15.9 H (11.5-15.5) % Plt Count 131 L (150-450) k/uL Sodium (137-145) mmol/L Glucose (74-99) mg/dL POC Glucose (mg/dL) 118 H 116 H (70-110) mg/dL Total Protein (6.3-8.2) g/dL Albumin (3.5-5.0) g/dL 01/23/24 01/23/24 Range/Units 04:10 06:13 RBC (4.30-5.90) m/uL Hgb (13.0-17.5) gm/dL Hct (39.0-53.0) % RDW (11.5-15.5) % Plt Count (150-450) k/uL Sodium 134 L (137-145) mmol/L Glucose 103 H (74-99) mg/dL POC Glucose (mg/dL) 135 H (70-110) mg/dL Total Protein 5.3 L (6.3-8.2) g/dL Albumin 3.4 L (3.5-5.0) g/dL Assessment and Plan Assessment: Postop day #2, S/P off-pump three-vessel bypass grafting. Routine postoperative ventilator management, with anticipated extubation on January 22, 2024. Non-ST elevation myocardial infarction, patient was transferred from [facility] 01/16/2024. Did undergo heart catheterization at our facility 01/17/2024 which showed severe multivessel coronary artery disease. Diseased vessels included the RCA with a tubular lesion of approximately 70-80% stenosis, LAD also had a long tubular lesion with a range of 60% stenosis, the the first obtuse marginal branch of the left circumflex artery had an ostial lesion with a range of approximately 90% stenosis. Currently on heparin infusion per protocol. Cardiothoracic surgery was asked to evaluate the patient for surgical myocardial revascularization. Multivessel coronary artery disease. History of pulmonary embolism, status post INARI procedure, has been chronically anticoagulated on Eliquis. Remote history of tobacco use. Severe proximal left ICA stenosis. Hyperlipidemia. History of rheumatoid arthritis. History of PMR. History of multiple previous back surgeries and chronic lower back pain. GERD, without esophagitis. Plan: Plan dated January 20, 2024. The patient has stable lung function. The patient should do well with his surgical procedure. I explained to him that we will be trying to get him off the ventilator as quickly as possible, after he arrives to the intensive care unit, from the operating room. After extubation, the patient will be seen by us on a daily basis, to make sure that his lungs remain healthy, and to prevent pleural effusion, atelectasis, lobar collapse, pneumonia, etc. In that regard the incentive spirometry is very important. He understands that. The patient does not have a history of any lung issues. Plan dated January 22, 2024. The patient is postoperative day #1, status post off-pump three-vessel bypass grafting. We attempted to extubate the patient yesterday, but he was very restless, and anxious. This morning, he is much more calm. His blood gases show pO2 of 127, pCO2 41, pH is 7.37. Patient's only on lactated Ringer's at 50 cc an hour. The patient's tidal volume is 505 cc, vital capacity 708 cc, negative inspiratory force is -27, rapid shallow breathing index is 37, minute volume is 11.2 L/min, respiratory rate is 24, and the patient does have a cuff leak. Based on these very excellent weaning parameters, and the fact that the patient is awake and alert, the patient will be extubated today. Labs, x-rays, and medications are reviewed. We will continue to follow the patient, make recommendations along the way. Prognosis is certainly guarded. Plan dated January 23, 2024. The patient was seen today in room 251. He is currently on 8 L high flow nasal cannula. He is getting lactated Ringer's at 30 cc an hour. He has been on and off of norepinephrine. His chest x-ray suggest fluid overload/CHF. Cardiothoracic surgery is planning on giving him Lasix. Labs, x-rays, medications are reviewed. The patient does not look as good today as he did yesterday. We will continue to follow the patient, make recommendations along the way. I believe the patient should stay in the intensive care unit, least another day. His situation and clinical status is tenuous. Time with Patient: Greater than 30
[2024-01-23] MEDS: HYDROcodone/APAP 10-325MG 1 EACH TAB PO PRN (13:13)
[2024-01-23] MEDS: METOPROLOL TARTRATE 25 MG TAB PO SCH (14:38)
[2024-01-23 16:41] LABS: Glucose,Whole Blood 102 mg/dL (70-110)
--- NOTE | 2024-01-23 19:07 | PN ---
PROGRESS NOTE SUBJECTIVE: Chris is a 78-year-old gentleman, who is admitted to hospital with [id number]-HM-[id number] elevation LA. He has a history of left internal carotid artery stenosis and pulmonary embolism. He underwent off pump bypass surgery with KIDD to LAD, saphenous vein graft to right coronary artery and OM branch with left atrial appendage ligation. He is feeling better, ambulating with help, and denies any new symptoms. OBJECTIVE: VITAL SIGNS: Stable. CHEST: Reveals diminished air entry at the bases with occasional rhonchi bilaterally. HEART: Reveals first and second heart sounds. No gallop. No murmur. ABDOMEN: Soft. EXTREMITIES: Reveals mild edema. Peripheral pulses are palpable. The patient is on Levophed for hypotension. He is also on aspirin, Lipitor, Plavix, and Lopressor 25 mg p.o. b.i.d. ASSESSMENT: Coronary artery disease, status post coronary artery bypass graft. PLAN: Continue with supportive care, incentive spirometry and breathing treatments. MMPIETROL / BABARN: [id number] /
[2024-01-23 19:54] LABS: Glucose,Whole Blood 107 mg/dL (70-110)
[2024-01-24] MEDS: ONDANSETRON 4 MG/2 ML VIAL IVP PRN (06:00)
[2024-01-24 06:42] LABS: Glucose,Whole Blood 109 mg/dL (70-110)
[2024-01-24 08:03] LABS: ALT 12 U/L (4-49); AST 27 U/L (17-59); African American GFR (CKD) >90 (>60 ml/min/1.73 sqM); Albumin 3.1 g/dL (3.5-5.0); Alkaline Phosphatase 79 U/L (38-126); Anion Gap 6 mmol/L; Blood Urea Nitrogen 16 mg/dL (9-20); Calcium 8.9 mg/dL (8.4-10.2); Carbon Dioxide 23 mmol/L (22-30); Chloride 109 mmol/L (98-107); Glucose 110 mg/dL (74-99); Non-African American GFR(CKD) 85 (>60 ml/min/1.73 sqM); Potassium 4.3 mmol/L (3.5-5.1); Sodium 138 mmol/L (137-145); Total Bilirubin 0.8 mg/dL (0.2-1.3); Total Protein 5.2 g/dL (6.3-8.2)
[2024-01-24 08:22] LABS: Anisocytosis Slight; Basophils % (A) 0 %; Eosinophils # (A) 0.3 k/uL (0-0.7); Eosinophils % (A) 3 %; HCT 25.6 % (39.0-53.0); HGB 8.3 gm/dL (13.0-17.5); Lymphocytes # (A) 0.9 k/uL (1.0-4.8); Lymphocytes % (A) 12 %; MCH 32.3 pg (25.0-35.0); MCHC 32.5 g/dL (31.0-37.0); MCV 99.3 fL (80.0-100.0); Macrocytosis Slight; Mean Platelet Volume 8.6; Monocytes # (A) 0.5 k/uL (0-1.0); Monocytes % (A) 6 %; Neutrophils # (A) 6.1 k/uL (1.3-7.7); Neutrophils % (A) 77 %; Platelet Count 155 k/uL (150-450); RBC 2.57 m/uL (4.30-5.90); RDW 16.1 % (11.5-15.5); WBC 7.9 k/uL (3.8-10.6)
[2024-01-24] MEDS: METOCLOPRAMIDE 5 MG/ML 2 ML VIAL IVP PRN (08:30)
[2024-01-24] MEDS: FUROSEMIDE 10 MG/ML 4 ML VIAL IV STA (09:10)
[2024-01-24] MEDS: POTASSIUM CHLORIDE ER 10 MEQ TAB.ER.PRT PO STA (09:10)
--- NOTE | 2024-01-24 09:13 | P.PN ---
Subjective Progress Note Date: 01/24/24 Principal diagnosis: Multivessel coronary artery disease, NSTEMI this admission, left internal carotid artery stenosis. Past medical history significant for pulmonary embolus in October 2022 status post INARI procedure on Eliquis For anticoagulation, hyperlipidemia, depression, chronic back pain, anemia, rheumatoid arthritis, GERD, previous tobacco dependence, and family history of coronary artery disease on his father's side. POD #3 Off pump coronary artery bypass grafting x 3. Left internal thoracic artery (in-situ) to left anterior descending coronary artery. Saphenous vein from aorta to distal right coronary artery. Saphenous vein from aorta to obtuse marginal artery #1, left atrial appendage ligation using a number 35 mm atrial clip, endoscopic right greater saphenous vein harvest, graft flow measurements using the [employer] flow meter system, excision of chest wall lesion, intraoperative transesophageal echocardiogram. Postoperative acute blood loss anemia, expected given hemodilution. The patient was seen and examined in follow-up today January 24, 2024 at his bedside in the intensive care unit. He is currently sitting up to the bedside chair, is awake, alert, oriented x 3 and is in no acute apparent distress. Denies any complaints of shortness of breath at this time, although is complaining of some back pain currently rating his pain 5 out of 10 on the pain scale. His back pain is chronic in nature. Oxygen saturations are 96% on 2 L nasal cannula and he is achieving 1000 mL on his incentive spirometry with encouragement. Bedside telemetry is showing normal sinus rhythm heart rate 73 bpm. Ventricular epicardial pacemaker wires remain in place and are grounded. He remains hemodynamically stable and is currently on no inotropic or pressor support. Mediastinal chest tube was removed yesterday without incident. Right and left pleural chest tubes remain in place to low continuous wall suction -20 cm H2O. No air leak is present. Right pleural chest tube draining thin serosanguineous drainage with 270 mL output in the last 24 hours, and his left pleural chest tube is draining thin serosanguineous drainage with 280 mL output in the last 24 hours. Chest x-ray and laboratory results were reviewed. Objective - Vital Signs Vital signs: Vital Signs Temp 97.8 F 01/24/24 08:00 Pulse 74 01/24/24 08:00 Resp 15 01/24/24 08:00 BP 100/58 01/24/24 08:00 Pulse Ox 95 01/24/24 08:00 FiO2 50 01/22/24 08:00 Intake & Output 01/23/24 01/24/24 01/24/24 18:59 06:59 18:59 Intake Total 848.256 573 46 Output Total 1048 1138 0 Balance -199.744 -565 46 Weight 94.4 kg Intake: IV 372 273 46 0.9ns pressure bag 72 33 6 Lactated Ringers 1,000 ml 300 240 40 @ 20 mls/hr IV .Q24H [facility] Rx#:[id number] Intake, IV Titration 66.256 Amount Norepinephrine 4 mg In 66.256 Sodium Chloride 0.9% 250 ml @ 0.03 MCG/KG/MIN 10. 573 mls/hr IV .Q24H [facility] Rx#:[id number] Oral 310 300 Tube Feeding 100 Output: Chest Tube Drainage 190 338 Chest Tube Right Lateral 20 218 Chest Chest Tube Right Pleural/ 60 Mediastinal Pleural Catheter Left 110 120 Urine 858 800 0 Other: Voiding Method Indwelling Catheter Urinal ABP, PAP, CO, CI - Last Documented Arterial Blood Pressure 109/39 Pulmonary Artery Pressure 23/18 Cardiac Output 6 Cardiac Index 2.9 - Exam CONSTITUTIONAL: Sitting up to the bedside chair in the intensive care unit, appears comfortable, cooperative, no apparent acute distress. HEENT: Neck is supple, no JVD, no lymphadenopathy. RESPIRATORY: Lungs sounds essentially clear throughout, diminished to his bilateral bases. Respirations are symmetrical and nonlabored. Currently on 2 L nasal cannula with oxygen saturations 96%. Able to achieve 1000 mL on their incentive spirometry. Strong cough. CARDIOVASCULAR: Regular rhythm and rate. S1 and S2 present, negative for S3, gallop or murmur. Normal sinus rhythm on his bedside monitor, heart rate 73 bpm. Sternum is stable. Palpable peripheral pulses bilaterally, +1 edema to his bilateral lower extremities. No calf pain or tenderness noted. Heart hugger in place with patient demonstrating appropriate use. Knee-high RUPAL hose and sequential compression devices in place to his bilateral lower extremities. GASTROINTESTINAL: Abdomen soft, nontender, nondistended. Active bowel sounds present 4 quadrants. Tolerating diet. Passing flatus. No guarding or r igidity. GENITOURINARY: Continues to void. 300 mL of urine output in the last 8 hours. INTEGUMENTARY: Skin is warm and dry with no evidence of clubbing or cyanosis. Midline sternal incision clean dry and well approximated, covered with dry intact dressing. Right lower extremity EVH sites well approximated without redness or drainage. NEUROLOGIC: Cranial nerves II through XII intact. No focal deficits. MUSKULOSKELETAL: Able to move all extremities, strength equal bilaterally, generalized weakness. PSYCHIATRIC: Alert and oriented to person place and time, appropriate affect, intact judgment and insight. INVASIVE LINES AND TUBES: Right/left pleural chest tubes present and connected to low continuous wall suction, no airleak present. Right pleural chest tubes 270 mL output in the last 24 hours. Left pleural chest tube 280 mL output in the last 24 hours. Ventricular epicardial pacemaker wires present and are grounded. Right radial arterial line present. - Allied health notes Allied health notes reviewed: nursing - Labs CBC & Chem 7: 01/24/24 07:24 01/24/24 07:24 Labs: Abnormal Lab Results - Last 24 Hours (Table) 01/24/24 01/24/24 Range/Units 07:24 07:24 RBC 2.57 L (4.30-5.90) m/uL Hgb 8.3 L (13.0-17.5) gm/dL Hct 25.6 L (39.0-53.0) % RDW 16.1 H (11.5-15.5) % Lymphocytes # 0.9 L (1.0-4.8) k/uL Chloride 109 H (98-107) mmol/L Glucose 110 H (74-99) mg/dL Total Protein 5.2 L (6.3-8.2) g/dL Albumin 3.1 L (3.5-5.0) g/dL - Imaging and Cardiology Chest x-ray: report reviewed, image reviewed Assessment and Plan Assessment: Multivessel coronary artery disease, status post three-vessel coronary artery bypass grafting surgery Non-ST elevated myocardial infarction this admission Left internal carotid artery stenosis by carotid Doppler, asymptomatic History of pulmonary embolus in October 2022 status post INARI procedure, on Eliquis For anticoagulation last dose was on 01/14/2024 Hyperlipidemia, treated, cholesterol 147, LDL 71 History of depression, treated Chronic back pain, on chronic [place] as an outpatient Anemia of chronic disease Rheumatoid arthritis, on methotrexate outpatient, last dose 01/11/2024 Family history of coronary artery disease on his father's side GERD Remote history of nicotine dependence quit 43 years ago, preoperative FEV1 89% of predicted value Postoperative acute blood loss anemia, expected Hypotension, resolved Plan: Continue to maximize medical therapy with aspirin, statin, Plavix, and beta- richard. Will increase beta-richard therapy as tolerated, with hold parameters. Wean O2 as tolerated, encourage incentive spirometry use 10 times every hour wh ile awake, bronchodilators per pulmonology/critical care medicine. Increase activity, ambulate as tolerated. PT/OT/cardiac rehab following. Will monitor daily labs and chest x-rays, electrolyte replacement per protocol. GI/DVT prophylaxis. Pain control per current medication regimen. Insulin management per internal medicine. Preoperative hemoglobin A1c 6.1%. We will remove his left and right pleural chest tubes today. Continue to record strict accurate intake and output. Remove right radial arterial line. Lasix 40 mg IV x 1 now, potassium chloride 10 mEq p.o. x 1 now. Shower daily starting tomorrow January 25, 2024. Daily weights. Transfer orders placed to third floor cardiac stepdown unit, transfer when bed available. Anticipate discharge home within the next 24 to 48 hours with home health care. Keep ventricular epicardial pacemaker wires in place, likely remove pacemaker wires tomorrow. More recommendations to follow based on patient's clinical course. Time with Patient: Greater than 30
--- NOTE | 2024-01-24 09:16 | XR ---
EXAM: XR chest 1V portable CLINICAL INDICATION:Male, 78 years old with history of Postop CABG; [facility] COMPARISON: 01/23/2024 and older studies TECHNIQUE: Chest single view. FINDINGS: Previous left-sided chest tube had terminated in the left lung apex. Currently the chest tube appears to coil back along the inner margin of the ribs in the left lower lateral chest, curving medially an d inferiorly before eventually terminating below the level of the diaphragmatic domes, presumably wit hin the left posterior costophrenic sulcus. Previous mediastinal drain no longer seen, likely removed . Sternotomy wires and postoperative clips. Left atrial appendage occlusion device. Moderate cardiomegaly redemonstrated. Diffuse interstitial opacities and patchy bibasilar opacities persist with perhaps minimally improved aeration of the lung bases. There is consolidative opacity compatible with progressive airspace dise ase in the right midlung zone, likely localizing to the upper lobe along the fissure. No sizable pleu ral effusion or visualized pneumothorax. Osseous structures appear unchanged. No evidence for acute pathology. IMPRESSION: 1. Cardiomegaly with continued pulmonary vascular congestion. 2. Slightly improved aeration of bibasilar airspace opacities. 3. Progressive airspace disease in the right mid lung, likely represents infectious/inflammatory pro cess such as pneumonia. Recommend follow-up to resolution. 4. Left-sided chest tube terminates medially over the lower chest/upper abdomen, presumably in the l eft posterior costophrenic sulcus.
[2024-01-24] MEDS: bisacodyL 10 MG SUPP RECTAL PRN (09:52)
--- NOTE | 2024-01-24 09:53 | PN ---
PROGRESS NOTE SUBJECTIVE: Chris is a 78-year-old gentleman with history of coronary artery disease, status post CABG. He is doing better. Remains in sinus rhythm, stable hemodynamically. Current medications include aspirin, Lipitor, Lopressor 25 b.i.d. He today is postop day #3. The patient looks slightly better today than he did yesterday. Still has his chest tube and mediastinal drain. PHYSICAL EXAMINATION: GENERAL: Comfortable at rest. VITAL SIGNS: Heart rate is 70 beats per minute. Blood pressure is 110/72, respiratory rate 18. CHEST: Reveals better air entry bilaterally. HEART: Reveals first and second heart sounds. No gallop. EXTREMITIES: Did not reveal any edema. LABORATORY DATA: I do not have any labs from this morning. ASSESSMENT AND PLAN: CAD, status post CABG, postop day #3. Patient appears better clinically than he did yesterday, in sinus rhythm. Blood pressures well maintained. We will follow labs when they are available and continue current medications. MMODL / IJN: [id number] /
[2024-01-24 11:35] LABS: Glucose,Whole Blood 99 mg/dL (70-110)
--- NOTE | 2024-01-24 11:46 | P.PN ---
Subjective Progress Note Date: 01/24/24 Principal diagnosis: Coronary disease. Patient is a 78-year-old white male with past medical history significant for pulmonary embolism status post INARI procedure and chronically anticoagulated on Eliquis, hyperlipidemia, rheumatoid arthritis, PMR, multiple previous back surgeries and altered gait, and remote history of nicotine use over 20 years ago. No known pre-existing lung disease. Follows at the [facility] in [place]. On 01/16/2024 the patient presented to [facility] complaining of new onset substernal chest pain that radiated to his left jaw and bilateral arms. He denied any associated shortness of breath, nausea, diaphoresis. This occurred while watching TV. Patient did not immediately present to the hospital because his was at [facility]. He was later drove to the hospital, approximately 2 hours later. Initial workup was suspicious for non-ST elevation MD, and patient was transferred to [facility] for further evaluation. He was started on IV heparin per protocol. He did undergo a transthoracic echocardiogram which showed a reduced ejection fraction of 40 to 45% with moderate mitral valve regurgitation. Subsequently, the patient did undergo a cardiac catheterization done 01/17/2024 which showed severe multivessel coronary artery disease. Disease vessels included the RCA with a tubular lesion of approximately 70-80% stenosis, LAD also had a long tubular lesion with a range of 60% stenosis, the the first obtuse marginal branch of the left circumflex artery had an ostial lesion with a range of approximately 90% stenosis. Cardiothoracic surgery was asked to evaluate the patient for surgical myocardial revascularization. We were then consulted for pulmonary clearance. On my evaluation, the patient is currently resting in bed, on room air, in no acute distress. Heparin continues to be infusing. Patient denies any current chest pain. Denies any shortness of breath or pulmonary complaints. Denies any history of lung disease. 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 A bedside spirometry showed an FEV1 of 2.79 L or 89% of predicted. CT of the chest from outside facility reviewed. No obvious pulmonary emboli. Small 2 x 4 mm pulmonary nodule, likely benign. No acute cardiopulmonary process. Eliquis is on hold. Heparin is infusion per protocol. Most recent APTT therapeutic. Most recent CBC and BMP from yesterday unremarkable. Troponins peaked at 0.5 at our facility. Hemodynamically stable. Progress note dated January 20, 2024. This is a 78-year-old male that we saw yesterday in consultation. The patient is scheduled for bypass grafting, tomorrow, January 20. The patient is on room air. He is not receiving any IV fluids. The patient does continue on IV heparin. Yesterday I introduced myself to the patient, and basically told him my role in this whole process, which is to get him off the mechanical ventilator as soon as possible, and to also maintain normal lung function, throughout his hospital course. I told him the incentive spirometer, in that regard, was very important. No new labs today other than a PTT of 55.9. Progress note dated January 22, 2024. 78-year-old male seen in the intensive care unit, room 251. The patient is postop day #1, status post off-pump, three-vessel bypass grafting. Currently, he is on pressure support of 5, and CPAP of 5, and 50%. Arterial blood gases this morning show pO2 127, pCO2 41, and pH is 7.37. His insulin is on hold. His lactated Ringer's is running at 50 cc an hour. Current labs include a white count 5.9, hemoglobin 8.4, hematocrit 27, platelet count 119,000. Sodium 136, potassium 4.6, chlorides 108, CO2 26, BUN 10, creatinine 0.61. Glucose is 123. Calcium is 8.3. Albumin is 3.2. Chest x-ray shows a properly placed end otracheal tube. Chest x-ray also shows some bibasilar atelectasis or infiltrates, and postsurgical changes. Progress note dated January 23, 2024. 78-year-old male seen in room 251. The patient is postoperative day #2, status post off-pump three-vessel bypass surgery. Yesterday he was doing better. Today, he is on 8 L of oxygen by nasal cannula. He is getting lactated Ringer's at 30 cc an hour. He has been on and off of norepinephrine. His chest x-ray suggest fluid overload, and apparently, cardiothoracic surgery plans on giving him some Lasix. He just does not look as well as he did yesterday. White count is 8.3, hemoglobin 8.3, hematocrit 26.5, and platelet count 131,000. Sodium 1 34, potassium 4.1, chlorides 106, CO2 22, BUN 15, creatinine 0.89. Glucose is 103. Albumin 3.4. Chest x-ray shows increasing vascular congestion and CHF changes. Progress note dated January 24, 2024. 78-year-old male seen today in room 251. He is postoperative day #3, status post off-pump three-vessel bypass surgery. He is getting lactated Ringer's at KVO. He is on 2 L of oxygen. He is currently resting comfortably. He has no complaints today. Current labs include a white count 7.9, hemoglobin 8.3, hematocrit 25.6, and a platelet count of 155,000. Sodium 138, potassium 4.3, chlorides 109, CO2 23, BUN 16, creatinine 0.81. Albumin is 3.1. Chest x-ray shows cardiomegaly, with increased pulmonary vascular Digestion, which is slightly improved. The patient does have patchy bilateral airspace infiltrates. Left-sided chest tube is noted. Objective - Vital Signs Vital signs: Vital Signs Temp 97.8 F 01/24/24 08:00 Pulse 77 01/24/24 11:14 Resp 14 01/24/24 10:00 BP 102/59 01/24/24 10:00 Pulse Ox 95 01/24/24 10:00 FiO2 50 01/22/24 08:00 Intake & Output 01/23/24 01/24/24 01/24/24 18:59 06:59 18:59 Intake Total 848.256 573 292 Output Total 1048 1138 375 Balance -199.744 -565 -83 Weight 94.4 kg Intake: IV 372 273 92 0.9ns pressure bag 72 33 12 Lactated Ringers 1,000 ml 300 240 80 @ 20 mls/hr IV .Q24H [facility] Rx#:[id number] Intake, IV Titration 66.256 Amount Norepinephrine 4 mg In 66.256 Sodium Chloride 0.9% 250 ml @ 0.03 MCG/KG/MIN 10. 573 mls/hr IV .Q24H [facility] Rx#:[id number] Oral 310 300 200 Tube Feeding 100 Output: Chest Tube Drainage 190 338 Chest Tube Right Lateral 20 218 Chest Chest Tube Right Pleural/ 60 Mediastinal Pleural Catheter Left 110 120 Urine 858 800 375 Other: Voiding Method Indwelling Catheter Urinal Urinal ABP, PAP, CO, CI - Last Documented Arterial Blood Pressure 121/45 Pulmonary Artery Pressure 23/18 Cardiac Output 6 Cardiac Index 2.9 - Exam No acute distress, extubated, on 2 L nasal cannula. HEENT examination is grossly unremarkable. Mucous membranes are moist. No oral lesions. Neck supple. Full range of motion. No adenopathy thyromegaly or neck vein distention. Cardiovascular examination reveals regular rhythm rate. S1-S2 normal. No S3 or S4. No discernible murmur noted. Heart rate is 77 bpm. Lungs reveal scattered crackles. Breath sounds equal. Scattered rhonchi are noted. No wheezes. Saturations are 96%. Abdomen soft bowel sounds are heard. No masses or tenderness. Extremities are intact. No cyanosis clubbing or edema. Skin is without rash or lesion. Neurologic examination is brief but nonfocal. - Labs CBC & Chem 7: 01/24/24 07:24 01/24/24 07:24 Labs: Abnormal Lab Results - Last 24 Hours (Table) 01/24/24 01/24/24 Range/Units 07:24 07:24 RBC 2.57 L (4.30-5.90) m/uL Hgb 8.3 L (13.0-17.5) gm/dL Hct 25.6 L (39.0-53.0) % RDW 16.1 H (11.5-15.5) % Lymphocytes # 0.9 L (1.0-4.8) k/uL Chloride 109 H (98-107) mmol/L Glucose 110 H (74-99) mg/dL Total Protein 5.2 L (6.3-8.2) g/dL Albumin 3.1 L (3.5-5.0) g/dL Assessment and Plan Assessment: Postop day #3, S/P off-pump three-vessel bypass grafting. Routine postoperative ventilator management, with anticipated extubation on January 22, 2024. Non-ST elevation myocardial infarction, patient was transferred from [facility] 01/16/2024. Did undergo heart catheterization at our facility 01/17/2024 which showed severe multivessel coronary artery disease. Diseased vessels included the RCA with a tubular lesion of approximately 70-80% stenosis, LAD also had a long tubular lesion with a range of 60% stenosis, the the first obtuse marginal branch of the left circumflex artery had an ostial lesion with a range of approximately 90% stenosis. Currently on heparin infusion per protocol. Cardiothoracic surgery was asked to evaluate the patient for surgical myocardial revascularization. Multivessel coronary artery disease. History of pulmonary embolism, status post INARI procedure, has been chronically anticoagulated on Eliquis. Remote history of tobacco use. Severe proximal left ICA stenosis. Hyperlipidemia. History of rheumatoid arthritis. History of PMR. History of multiple previous back surgeries and chronic lower back pain. GERD, without esophagitis. Plan: Plan dated January 20, 2024. The patient has stable lung function. The patient should do well with his surgical procedure. I explained to him that we will be trying to get him off the ventilator as quickly as possible, after he arrives to the intensive care unit, from the operating room. After extubation, the patient will be seen by us on a daily basis, to make sure that his lungs remain healthy, and to prevent pleural effusion, atelectasis, lobar collapse, pneumonia, etc. In that regard the incentive spirometry is very important. He understands that. The patient does not have a history of any lung issues. Plan dated January 22, 2024. The patient is postoperative day #1, status post off-pump three-vessel bypass grafting. We attempted to extubate the patient yesterday, but he was very restless, and anxious. This morning, he is much more calm. His blood gases show pO2 of 127, pCO2 41, pH is 7.37. Patient's only on lactated Ringer's at 50 cc an hour. The patient's tidal volume is 505 cc, vital capacity 708 cc, negative inspiratory force is -27, rapid shallow breathing index is 37, minute volume is 11.2 L/min, respiratory rate is 24, and the patient does have a cuff leak. Based on these very excellent weaning parameters, and the fact that the patient is awake and alert, the patient will be extubated today. Labs, x-rays, and medications are reviewed. We will continue to follow the patient, make recommendations along the way. Prognosis is certainly guarded. Plan dated January 23, 2024. The patient was seen today in room 251. He is currently on 8 L high flow nasal cannula. He is getting lactated Ringer's at 30 cc an hour. He has been on and off of norepinephrine. His chest x-ray suggest fluid overload/CHF. Cardiothoracic surgery is planning on giving him Lasix. Labs, x-rays, medications are reviewed. The patient does not look as good today as he did yesterday. We will continue to follow the patient, make recommendations along the way. I believe the patient should stay in the intensive care unit, least another day. His situation and clinical status is tenuous. Plan dated January 24, 2024. The patient is seen today in room 251. He is postop day #3, status post three- vessel bypass grafting, which was done off-pump. He is getting lactated Ringer's at KVO. He is on oxygen at 2 L. Yesterday he was on 8 L. Clinically, he looks much better. His chest x-ray still shows some pulmonary vascular congestion. Labs, x-rays, and medications are reviewed. We will continue to follow the patient, and make recommendations along the way. Prognosis is thought to be generally good. Time with Patient: Less than 30
[2024-01-24 16:37] LABS: Glucose,Whole Blood 130 mg/dL (70-110)
[2024-01-24] MEDS: MAGNESIUM HYDROXIDE 2,400 MG/30 ML CUP PO PRN (16:41)
--- NOTE | 2024-01-24 17:17 | P.PN ---
Subjective Progress Note Date: 01/24/24 (delayed charting seen at approx 1030) Patient is a 78-year-old male with chronic low back pain, prior pulmonary embolism, and rheumatoid arthritis who initially was transferred from an outside facility for evaluation of chest pain. On arrival here he had mildly elevated troponins that maxed at 0.50. Cardiology was consulted. He underwent an echocardiogram which demonstrated ejection fraction of 40 to 45% with mildly reduced global left ventricular systolic function and no regional wall motion abnormalities. Cardiology was consulted. He underwent cardiac catheterization on 01/16 which revealed severe triple-vessel coronary artery disease with low left-sided filling pressures. CT surgery was subsequently consulted and he underwent cardiac bypass on 01/20. Patient seen and examined at bedside. He has no complaints currently other than needing to go to the bathroom. He denies any significant chest pain or shortness of breath. No nausea or vomiting. Vital signs reviewed General: Nontoxic, no distress, appears at stated age Cardiovascular: S1S2 reg, no murmur Lungs: CTA bilateral, no rhonchi, no rales, no accessory muscle use Abdominal: Soft, nontender to palpation, no guarding Ext: No gross muscle atrophy, no edema b/l lower extremities, no contractures Neuro: CN II-XI grossly intact, no focal neuro deficits Psych: Alert, oriented, appropriate affect Assessment/Plan: Non-ST segment elevated myocardial infarction Severe triple-vessel coronary artery disease s/p Off-pump coronary artery bypass grafting x 3 on 01/21/2024 Dyslipidemia Left carotid stenosis Cardiomyopathy, likely ischemic with EF 40-45% -CT surgery note reviewed: Removing left and right Pleurx catheter, Lasix 40 mg x 1 now, remove right radial art line -Pulmonary note reviewed: Continue current care -Cardiology note reviewed: Continue current care -Plavix 75 mg daily, aspirin 325 mg daily, Lipitor 40 mg daily, Lopressor 50 mg twice daily - outpatient vascular surgery follow-up Prediabetes with A1c 6.1 - carb consistent diet on discharge - repeat A1C in 3 months. Acute blood loss anemia - stable - Given hgb drop would recommend Ferrous sulfate 325 mg PO daily for the next several months. Rheumatoid arthritis Chronic back pain -Hold methotrexate -Continue with Elavil 25 mg in the morning and 75 mg at night, [place] 10/325 every 6 hours as needed for pain, Cymbalta 30 mg daily History of pulmonary embolism - Resume elequis when okay with CT surgery Constipation, resolved Chronic: Anemia GERD Imaging: Chest x-ray report reviewed right midlung infiltrate ( no clinical signs of PNA, encourage IS) Lower extremity arterial Doppler: Normal ABEL Carotid artery Doppler: Severe proximal left ICA stenosis > 70% Echocardiogram: Ejection fraction 40 to 45%, mild reduced global left ventricular systolic function Data Review: Labs reviewed from today include CBC, complete metabolic profile which is remarkable for hemoglobin of 8.3. DVT prophylaxis: Heparin gtt Anticipated discharge date: Pending Clinical Course Anticipated discharge place: Pending Clinical Course This dictation was prepared using [employer] voice recognition software. Though every attempt is made to correct errors during dictation some may still exist. Objective - Vital Signs Vital signs: Vital Signs Temp 97.8 F 01/24/24 16:00 Pulse 81 01/24/24 16:00 Resp 17 01/24/24 16:00 BP 89/70 01/24/24 16:00 Pulse Ox 97 01/24/24 16:00 FiO2 50 01/22/24 08:00 Intake & Output 01/23/24 01/24/24 01/24/24 18:59 06:59 18:59 Intake Total 848.256 573 612 Output Total 1048 1138 1325 Balance -199.744 -565 -713 Weight 94.4 kg Intake: IV 372 273 212 0.9ns pressure bag 72 33 12 Lactated Ringers 1,000 ml 300 240 200 @ 20 mls/hr IV .Q24H [facility] Rx#:[id number] Intake, IV Titration 66.256 Amount Norepinephrine 4 mg In 66.256 Sodium Chloride 0.9% 250 ml @ 0.03 MCG/KG/MIN 10. 573 mls/hr IV .Q24H [facility] Rx#:[id number] Oral 310 300 400 Tube Feeding 100 Output: Chest Tube Drainage 190 338 Chest Tube Right Lateral 20 218 Chest Chest Tube Right Pleural/ 60 Mediastinal Pleural Catheter Left 110 120 Urine 473 409 8143 Other: Voiding Method Indwelling Catheter Urinal External Catheter ABP, PAP, CO, CI - Last Documented Arterial Blood Pressure 121/45 Pulmonary Artery Pressure 23/18 Cardiac Output 6 Cardiac Index 2.9 - Labs CBC & Chem 7: 01/24/24 07:24 01/24/24 07:24 Labs: Abnormal Lab Results - Last 24 Hours (Table) 01/24/24 01/24/24 01/24/24 Range/Units 07:24 07:24 16:36 RBC 2.57 L (4.30-5.90) m/uL Hgb 8.3 L (13.0-17.5) gm/dL Hct 25.6 L (39.0-53.0) % RDW 16.1 H (11.5-15.5) % Lymphocytes # 0.9 L (1.0-4.8) k/uL Chloride 109 H (98-107) mmol/L Glucose 110 H (74-99) mg/dL POC Glucose (mg/dL) 130 H (70-110) mg/dL Total Protein 5.2 L (6.3-8.2) g/dL Albumin 3.1 L (3.5-5.0) g/dL
[2024-01-24 20:06] LABS: Glucose,Whole Blood 127 mg/dL (70-110)
[2024-01-25 05:52] LABS: Anisocytosis Slight; HCT 25.9 % (39.0-53.0); Hypochromasia Slight; MCH 31.2 pg (25.0-35.0); MCHC 31.1 g/dL (31.0-37.0); MCV 100.5 fL (80.0-100.0); Macrocytosis Slight; Platelet Count 161 k/uL (150-450); RBC 2.58 m/uL (4.30-5.90); RDW 16.1 % (11.5-15.5)
[2024-01-25 06:18] LABS: Glucose,Whole Blood 103 mg/dL (70-110)
[2024-01-25 07:05] LABS: African American GFR (CKD) >90 (>60 ml/min/1.73 sqM); Anion Gap 6 mmol/L; Blood Urea Nitrogen 19 mg/dL (9-20); Calcium 8.5 mg/dL (8.4-10.2); Carbon Dioxide 26 mmol/L (22-30); Chloride 108 mmol/L (98-107); Glucose 102 mg/dL (74-99); Non-African American GFR(CKD) 87 (>60 ml/min/1.73 sqM); Potassium 3.9 mmol/L (3.5-5.1); Sodium 140 mmol/L (137-145)
--- NOTE | 2024-01-25 07:47 | P.PN ---
Subjective Progress Note Date: 01/25/24 PROGRESS NOTE The patient is a 78-year-old male who presented with symptoms of chest discomfort and non-STEMI, underwent cardiac catheterization and subsequently was found to have severe coronary artery disease and underwent CABG with KIDD to the LAD, SVG to the OM and to the RCA, performed on 20 January. He has a history of pulmonary embolism. Clinically he is doing well this morning, sitting up in the chair. He has no significant chest discomfort and continues to be in sinus mechanism. Hemodynamically he is stable. He is on no vasopressors. Medications: Aspirin, Plavix 75 mg daily, metoprolol 12.5 mg twice a day, paroxetine, Lipitor 40 mg daily PHYSICAL EXAMINATION: Blood pressure 138/70 heart rate 70 LUNGS: Clear to auscultation HEART: Regular rate and rhythm, S1, S2. No S3. Systolic ejection murmur ABDOMEN: Soft, nontender, no organomegaly EXTREMETIES: No edema LAB: Hemoglobin 8.0, BUN 19, creatinine 0.77 IMPRESSION: 1. Status post CABG for severe coronary artery disease 2. Status post pulmonary embolism in October 2022 with thrombectomy 3. History of rheumatoid arthritis 4. History of hyperlipidemia PLAN: 1. Increase physical activity 2. Patient will need to restart anticoagulation, would recommend to start anticoagulation and stop clopidogrel 3. Continue incentive spirometry 4. Depending on his progress probable transfer to telemetry and hopefully discharge home in 48 hours Objective - Vital Signs Vital signs: Vital Signs Temp 98.5 F 01/25/24 04:00 Pulse 78 01/25/24 07:00 Resp 19 01/25/24 07:00 BP 138/77 01/25/24 07:00 Pulse Ox 94 L 01/25/24 07:00 FiO2 50 01/22/24 08:00 Intake & Output 01/24/24 01/25/24 01/25/24 18:59 06:59 18:59 Intake Total 802 290 20 Output Total 1525 100 0 Balance -723 190 20 Weight 93.2 kg Intake: IV 252 240 20 0.9ns pressure bag 12 Lactated Ringers 1,000 ml 240 240 20 @ 20 mls/hr IV .Q24H [facility] Rx#:[id number] Oral 550 50 Output: Urine 1525 100 0 Other: Voiding Method External Catheter Urinal ABP, PAP, CO, CI - Last Documented Arterial Blood Pressure 121/45 Pulmonary Artery Pressure 23/18 Cardiac Output 6 Cardiac Index 2.9 - Labs CBC & Chem 7: 01/25/24 05:32 01/25/24 05:32 Labs: Abnormal Lab Results - Last 24 Hours (Table) 01/24/24 01/24/24 01/24/24 Range/Units 07:24 07:24 16:36 RBC 2.57 L (4.30-5.90) m/uL Hgb 8.3 L (13.0-17.5) gm/dL Hct 25.6 L (39.0-53.0) % MCV (80.0-100.0) fL RDW 16.1 H (11.5-15.5) % Lymphocytes # 0.9 L (1.0-4.8) k/uL Chloride 109 H (98-107) mmol/L Glucose 110 H (74-99) mg/dL POC Glucose (mg/dL) 130 H (70-110) mg/dL Total Protein 5.2 L (6.3-8.2) g/dL Albumin 3.1 L (3.5-5.0) g/dL 01/24/24 01/25/24 01/25/24 Range/Units 20:04 05:32 05:32 RBC 2.58 L (4.30-5.90) m/uL Hgb 8.0 L (13.0-17.5) gm/dL Hct 25.9 L (39.0-53.0) % MCV 100.5 H (80.0-100.0) fL RDW 16.1 H (11.5-15.5) % Lymphocytes # (1.0-4.8) k/uL Chloride 108 H (98-107) mmol/L Glucose 102 H (74-99) mg/dL POC Glucose (mg/dL) 127 H (70-110) mg/dL Total Protein (6.3-8.2) g/dL Albumin (3.5-5.0) g/dL
--- NOTE | 2024-01-25 08:05 | XR ---
EXAMINATION TYPE: XR chest 2V DATE OF EXAM: 01/25/2024 COMPARISON: 01/24/2024 TECHNIQUE: PA and lateral views submitted. HISTORY: Postop CABG FINDINGS: Heart is enlarged and there is postsurgical changes with a small bilateral pleural effusion and diffu se interstitial pattern. Diffuse osteopenia with arthropathy of the shoulders and degenerative change s of the spine. Post median sternotomy with atrial appendage clip. IMPRESSION: 1. Bilateral consolidation and small effusion correlate for mild CHF otherwise consider pneumonia.
[2024-01-25] MEDS: POTASSIUM CHLORIDE ER 20 MEQ TAB.ER PO SCH (08:34)
[2024-01-25] MEDS: guaiFENesin 600 MG TABLET.ER PO SCH (08:35)
[2024-01-25] MEDS: MIDODRINE 5 MG TAB PO SCH (08:38)
[2024-01-25] MEDS: ALBUMIN HUMAN 5% 250 ML in EMPTY BAG 1 BAG IVPB STA (08:39)
--- NOTE | 2024-01-25 08:40 | P.PN ---
Subjective Progress Note Date: 01/25/24 Principal diagnosis: Multivessel coronary artery disease, NSTEMI this admission, left internal carotid artery stenosis. Past medical history significant for pulmonary embolus in October 2022 status post INARI procedure on Eliquis For anticoagulation, hyperlipidemia, depression, chronic back pain, anemia, rheumatoid arthritis, GERD, previous tobacco dependence, and family history of coronary artery disease on his father's side. POD #4 Off pump coronary artery bypass grafting x 3. Left internal thoracic artery (in-situ) to left anterior descending coronary artery. Saphenous vein from aorta to distal right coronary artery. Saphenous vein from aorta to obtuse marginal artery #1, left atrial appendage ligation using a number 35 mm atrial clip, endoscopic right greater saphenous vein harvest, graft flow measurements using the [employer] flow meter system, excision of chest wall lesion, intraoperative transesophageal echocardiogram. Postoperative acute blood loss anemia, expected given hemodilution. The patient was seen and examined in follow-up today January 25, 2024 at his bedside in the intensive care unit. He is currently sitting up to the bedside chair, is awake, alert, oriented x 3 and is in no acute apparent distress. Patient denies any complaints of pain or shortness of breath at this time. Reports he feels much better today with his chest tubes being removed. He has been up ambulating in the intensive care unit hallway with standby assistance or nursing and therapy staff and tolerating well. Oxygen saturations are 93% on room air and he is achieving 1500 mL on his incentive spirometry with encouragement. Bedside telemetry is currently showing normal sinus rhythm heart rate 82 bpm. He remains hemodynamically stable and is currently on no inotropic or pressor support. Chest x-ray and laboratory results were reviewed. Objective - Vital Signs Vital signs: Vital Signs Temp 98.5 F 01/25/24 04:00 Pulse 87 01/25/24 06:09 Resp 28 H 01/25/24 06:09 BP 86/56 01/25/24 06:09 Pulse Ox 91 L 01/25/24 06:09 FiO2 50 01/22/24 08:00 Intake & Output 01/24/24 01/24/24 01/25/24 06:59 18:59 06:59 Intake Total 573 802 290 Output Total 1138 1525 100 Balance -565 -723 190 Weight 94.4 kg 93.2 kg Intake: IV 273 252 240 0.9ns pressure bag 33 12 Lactated Ringers 1,000 ml 240 240 240 @ 20 mls/hr IV .Q24H [facility] Rx#:[id number] Oral 300 550 50 Output: Chest Tube Drainage 338 Chest Tube Right Lateral 218 Chest Pleural Catheter Left 120 Urine 800 1525 100 Other: Voiding Method Urinal External Catheter Urinal ABP, PAP, CO, CI - Last Documented Arterial Blood Pressure 121/45 Pulmonary Artery Pressure 23/18 Cardiac Output 6 Cardiac Index 2.9 - Exam CONSTITUTIONAL: Sitting up to the bedside chair in the intensive care unit, appears comfortable, cooperative, no apparent acute distress. HEENT: Neck is supple, no JVD, no lymphadenopathy. RESPIRATORY: Lungs sounds essentially clear throughout, diminished to his bilateral bases. Respirations are symmetrical and nonlabored. Currently on room air with oxygen saturations 93%. Able to achieve 1500 mL on their incentive spirometry. Strong cough. CARDIOVASCULAR: Regular rhythm and rate. S1 and S2 present, negative for S3, gallop or murmur. Normal sinus rhythm on his bedside monitor, heart rate 82 bpm. Sternum is stable. Palpable peripheral pulses bilaterally, +1 edema to his bilateral lower extremities. No calf pain or tenderness noted. Heart hugger in place with patient demonstrating appropriate use. Knee-high RUPAL hose and sequential compression devices in place to his bilateral lower extremities. GASTROINTESTINAL: Abdomen soft, nontender, nondistended. Active bowel sounds present 4 quadrants. Tolerating diet. Passing flatus. No guarding or rigidity. GENITOURINARY: Continues to void. INTEGUMENTARY: Skin is warm and dry with no evidence of clubbing or cyanosis. Midline sternal incision clean dry and well approximated, covered with dry intact dressing. Right lower extremity EVH sites well approximated without red ness or drainage. NEUROLOGIC: Cranial nerves II through XII intact. No focal deficits. MUSKULOSKELETAL: Able to move all extremities, strength equal bilaterally, generalized weakness. PSYCHIATRIC: Alert and oriented to person place and time, appropriate affect, intact judgment and insight. INVASIVE LINES AND TUBES: Ventricular epicardial pacemaker wires present and are grounded. - Allied health notes Allied health notes reviewed: nursing - Labs CBC & Chem 7: 01/25/24 05:32 01/25/24 05:32 Labs: Abnormal Lab Results - Last 24 Hours (Table) 01/24/24 01/24/24 01/24/24 Range/Units 07:24 07:24 16:36 RBC 2.57 L (4.30-5.90) m/uL Hgb 8.3 L (13.0-17.5) gm/dL Hct 25.6 L (39.0-53.0) % MCV (80.0-100.0) fL RDW 16.1 H (11.5-15.5) % Lymphocytes # 0.9 L (1.0-4.8) k/uL Chloride 109 H (98-107) mmol/L Glucose 110 H (74-99) mg/dL POC Glucose (mg/dL) 130 H (70-110) mg/dL Total Protein 5.2 L (6.3-8.2) g/dL Albumin 3.1 L (3.5-5.0) g/dL 01/24/24 01/25/24 Range/Units 20:04 05:32 RBC 2.58 L (4.30-5.90) m/uL Hgb 8.0 L (13.0-17.5) gm/dL Hct 25.9 L (39.0-53.0) % MCV 100.5 H (80.0-100.0) fL RDW 16.1 H (11.5-15.5) % Lymphocytes # (1.0-4.8) k/uL Chloride (98-107) mmol/L Glucose (74-99) mg/dL POC Glucose (mg/dL) 127 H (70-110) mg/dL Total Protein (6.3-8.2) g/dL Albumin (3.5-5.0) g/dL - Imaging and Cardiology Chest x-ray: report reviewed, image reviewed Assessment and Plan Assessment: Multivessel coronary artery disease, status post three-vessel coronary artery bypass grafting surgery Non-ST elevated myocardial infarction this admission Left internal carotid artery stenosis by carotid Doppler, asymptomatic History of pulmonary embolus in October 2022 status post INARI procedure, on Eliquis For anticoagulation last dose was on 01/14/2024 Hyperlipidemia, treated, cholesterol 147, LDL 71 History of depression, treated Chronic back pain, on chronic [place] and Cymbalta as an outpatient Anemia of chronic disease Rheumatoid arthritis, on methotrexate outpatient, last dose 01/11/2024 Family history of coronary artery disease on his father's side GERD Remote history of nicotine dependence quit 43 years ago, preoperative FEV1 89% of predicted value Postoperative acute blood loss anemia, expected Hypotension, resolved Plan: Continue to maximize medical therapy with aspirin, statin, Plavix, and beta- richard. Will decrease metoprolol to tartrate to 12.5 mg p.o. twice daily, with hold parameters. Wean O2 as tolerated, encourage incentive spirometry use 10 times every hour while awake, bronchodilators per pulmonology/critical care medicine. Increase activity, ambulate as tolerated. PT/OT/cardiac rehab following. Will monitor daily labs and chest x-rays, electrolyte replacement per protocol. GI/DVT prophylaxis. Pain control per current medication regimen. Insulin management per internal medicine. Preoperative hemoglobin A1c 6.1%. Continue to record strict accurate intake and output. Albumin 5% 250 mL IV piggyback x 1 now. Start midodrine 5 mg p.o. 3 times daily for blood pressure support. Shower daily. Daily weights. Transfer orders placed to third floor cardiac stepdown unit, transfer when bed available. Anticipate discharge home within the next 24 to 48 hours with home health care. More recommendations to follow based on patient's clinical course. Time with Patient: Greater than 30
[2024-01-25 11:40] LABS: Glucose,Whole Blood 130 mg/dL (70-110)
[2024-01-25] MEDS: FERROUS SULFATE 325 MG TAB PO SCH (12:07)
[2024-01-25] MEDS: METOPROLOL TARTRATE 12.5 MG TAB PO SCH (12:07)
[2024-01-25] MEDS ORDERED: MIDODRINE 5 MG TAB PO SCH (12:30)
--- NOTE | 2024-01-25 13:00 | P.PN ---
Subjective Progress Note Date: 01/25/24 Patient is a 78-year-old white male with past medical history significant for pulmonary embolism status post INARI procedure and chronically anticoagulated on Eliquis, hyperlipidemia, rheumatoid arthritis, PMR, multiple previous back surgeries and altered gait, and remote history of nicotine use over 20 years ago. No known pre-existing lung disease. Follows at the [facility] [place]. On 01/16/2024 the patient presented to [facility] complaining of new onset substernal chest pain that radiated to his left jaw and bilateral arms. He denied any associated shortness of breath, nausea, diaphoresis. This occurred while watching TV. Patient did not immediately present to the hospital because his was at [facility]. He was later drove to the hospital, approximately 2 hours later. Initial workup was suspicious for non-ST elevation NH, and patient was transferred to [facility] for further evaluation. He was started on IV heparin per protocol. He did undergo a transthoracic echocardiogram which showed a reduced ejection fraction of 40 to 45% with moderate mitral valve regurgitation. Subsequently, the patient did undergo a cardiac catheterization done 01/17/2024 which showed severe multivessel coronary artery disease. Disease vessels included the RCA with a tubular lesion of approximately 70-80% stenosis, LAD also had a long tubular lesion with a range of 60% stenosis, the the first obtuse marginal branch of the left circumflex artery had an ostial lesion with a range of approximately 90% stenosis. Cardiothoracic surgery was asked to evaluate the patient for surgical myocardial revascularization. We were then consulted for pulmonary clearance. On my evaluation, the patient is currently resting in bed, on room air, in no acute distress. Heparin continues to be infusing. Patient denies any current chest pain. Denies any shortness of breath or pulmonary complaints. Denies any history of lung disease. 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 A bedside spirometry showed an FEV1 of 2.79 L or 89% of predicted. CT of the chest from outside facility reviewed. No obvious pulmonary emboli. Small 2 x 4 mm pulmonary nodule, likely benign. No acute cardiopulmonary process. Eliquis is on hold. Heparin is infusion per protocol. Most recent APTT therapeutic. Most recent CBC and BMP from yesterday unremarkable. Troponins peaked at 0.5 at our facility. Hemodynamically stable. Progress note dated January 20, 2024. This is a 78-year-old male that we saw yesterday in consultation. The patient is scheduled for bypass grafting, tomorrow, January 20. The patient is on room air. He is not receiving any IV fluids. The patient does continue on IV hep eben. Yesterday I introduced myself to the patient, and basically told him my role in this whole process, which is to get him off the mechanical ventilator as soon as possible, and to also maintain normal lung function, throughout his hospital course. I told him the incentive spirometer, in that regard, was very important. No new labs today other than a PTT of 55.9. Progress note dated January 22, 2024. 78-year-old male seen in the intensive care unit, room 251. The patient is postop day #1, status post off-pump, three-vessel bypass grafting. Currently, he is on pressure support of 5, and CPAP of 5, and 50%. Arterial blood gases this morning show pO2 127, pCO2 41, and pH is 7.37. His insulin is on hold. His lactated Ringer's is running at 50 cc an hour. Current labs include a white count 5.9, hemoglobin 8.4, hematocrit 27, platelet count 119,000. Sodium 136, potassium 4.6, chlorides 108, CO2 26, BUN 10, creatinine 0.61. Glucose is 123. Calcium is 8.3. Albumin is 3.2. Chest x-ray shows a properly placed endotracheal tube. Chest x-ray also shows some bibasilar atelectasis or infiltrates, and postsurgical changes. Progress note dated January 23, 2024. 78-year-old male seen in room 251. The patient is postoperative day #2, status post off-pump three-vessel bypass surgery. Yesterday he was doing better. Today, he is on 8 L of oxygen by nasal cannula. He is getting lactated Ringer's at 30 cc an hour. He has been on and off of norepinephrine. His chest x-ray suggest fluid overload, and apparently, cardiothoracic surgery plans on giving him some Lasix. He just does not look as well as he did yesterday. White count is 8.3, hemoglobin 8.3, hematocrit 26.5, and platelet count 131,000. Sodium 134, potassium 4.1, chlorides 106, CO2 22, BUN 15, creatinine 0.89. Glucose is 103. Albumin 3.4. Chest x-ray shows increasing vascular congestion and CHF changes. Progress note dated January 24, 2024. 78-year-old male seen today in room 251. He is postoperative day #3, status post off-pump three-vessel bypass surgery. He is getting lactated Ringer's at KVO. He is on 2 L of oxygen. He is currently resting comfortably. He has no complaints today. Current labs include a white count 7.9, hemoglobin 8.3, hematocrit 25.6, and a platelet count of 155,000. Sodium 138, potassium 4.3, chlorides 109, CO2 23, BUN 16, creatinine 0.81. Albumin is 3.1. Chest x-ray shows cardiomegaly, with increased pulmonary vascular Digestion, which is slightly improved. The patient does have patchy bilateral airspace infiltrates. Left-sided chest tube is noted. On today's evaluation 01/25/2024, the patient is being seen for a follow-up. The patient is postop day #4 following heart surgery. His the patient is doing well. No specific complaints. He is currently on room air oxygen. Chest tubes have been removed. He has still the pacemaker wires in place. He has previous history of DVT and pulmonary embolism and the patient is awaiting l removals prior to him being restarted on anticoagulation. He has no major respiratory distress. He is post three-vessel bypass surgery. He is using incentive spirometer pulling approximately 1500. WBC count is 6 with a hemoglobin of 8 and a platelet count of 161. BUN is 19 with a creatinine of 0.7. Afebrile. Cardiac rhythm is sinus and a blood sugar is at 130. Objective - Vital Signs Vital signs: Vital Signs Temp 98.5 F 01/25/24 04:00 Pulse 80 01/25/24 08:01 Resp 19 01/25/24 07:00 BP 138/77 01/25/24 07:00 Pulse Ox 94 L 01/25/24 07:48 FiO2 50 01/22/24 08:00 Intake & Output 01/24/24 01/25/24 01/25/24 18:59 06:59 18:59 Intake Total 802 290 20 Output Total 1525 100 0 Balance -723 190 20 Weight 93.2 kg Intake: IV 252 240 20 0.9ns pressure bag 12 Lactated Ringers 1,000 ml 240 240 20 @ 20 mls/hr IV .Q24H [facility] Rx#:[id number] Oral 550 50 Output: Urine 1525 100 0 Other: Voiding Method External Catheter Urinal ABP, PAP, CO, CI - Last Documented Arterial Blood Pressure 121/45 Pulmonary Artery Pressure 23/18 Cardiac Output 6 Cardiac Index 2.9 - Exam No acute distress,, comfortable currently on room air oxygen. HEENT examination is grossly unremarkable. Mucous membranes are moist. No oral lesions. Neck supple. Full range of motion. No adenopathy thyromegaly or neck vein distention. Cardiovascular examination reveals regular rhythm rate. S1-S2 normal. No S3 or S4. No discernible murmur noted. Postthoracotomy, sternum is dry clean and intact Lungs reveal scattered crackles. Breath sounds equal. Scattered rhonchi are noted. No wheezes. Abdomen soft bowel sounds are heard. No masses or tenderness. Extremities are intact. No cyanosis clubbing or edema. Skin is without rash or lesion. Neurologic examination is brief but nonfocal. - Labs CBC & Chem 7: 01/25/24 05:32 01/25/24 05:32 Labs: Abnormal Lab Results - Last 24 Hours (Table) 01/24/24 01/24/24 01/24/24 Range/Units 07:24 07:24 16:36 RBC 2.57 L (4.30-5.90) m/uL Hgb 8.3 L (13.0-17.5) gm/dL Hct 25.6 L (39.0-53.0) % MCV (80.0-100.0) fL RDW 16.1 H (11.5-15.5) % Lymphocytes # 0.9 L (1.0-4.8) k/uL Chloride 109 H (98-107) mmol/L Glucose 110 H (74-99) mg/dL POC Glucose (mg/dL) 130 H (70-110) mg/dL Total Protein 5.2 L (6.3-8.2) g/dL Albumin 3.1 L (3.5-5.0) g/dL 01/24/24 01/25/24 01/25/24 Range/Units 20:04 05:32 05:32 RBC 2.58 L (4.30-5.90) m/uL Hgb 8.0 L (13.0-17.5) gm/dL Hct 25.9 L (39.0-53.0) % MCV 100.5 H (80.0-100.0) fL RDW 16.1 H (11.5-15.5) % Lymphocytes # (1.0-4.8) k/uL Chloride 108 H (98-107) mmol/L Glucose 102 H (74-99) mg/dL POC Glucose (mg/dL) 127 H (70-110) mg/dL Total Protein (6.3-8.2) g/dL Albumin (3.5-5.0) g/dL Assessment and Plan Plan: Postop day #4, S/P off-pump three-vessel bypass grafting. Routine postoperative ventilator management, with anticipated extubation on January 22, 2024. Non-ST elevation myocardial infarction, patient was transferred from [facility] 01/16/2024. Did undergo heart catheterization at our facility 01/17/2024 which showed severe multivessel coronary artery disease. Diseased vessels included the RCA with a tubular lesion of approximately 70-80% stenosis, LAD also had a long tubular lesion with a range of 60% stenosis, the the first obtuse marginal branch of the left circumflex artery had an ostial lesion with a range of approximately 90% stenosis. Currently on heparin infusion per protocol. Cardiothoracic surgery was asked to evaluate the patient for surgical myocardial revascularization. Multivessel coronary artery disease. History of pulmonary embolism, status post INARI procedure, has been chronically anticoagulated on Eliquis. Remote history of tobacco use. Severe proximal left ICA stenosis. Hyperlipidemia. History of rheumatoid arthritis. History of PMR. History of multiple previous back surgeries and chronic lower back pain. GERD, without esophagitis. Plan: Continue using the incentive spirometer. The pacemaker wires to be removed today Anticoagulation to be started with Eliquis following wire removal. Continue metoprolol 12.5 mg twice a day. Continue aspirin and Plavix. Home medications have been resumed. Increase mobility and activity and will continue to follow.
--- NOTE | 2024-01-25 15:21 | P.PN ---
Subjective Progress Note Date: 01/25/24 (boris charting seen at 1005) Patient is a 78-year-old male with chronic low back pain, prior pulmonary embolism, and rheumatoid arthritis who initially was transferred from an outside facility for evaluation of chest pain. On arrival here he had mildly elevated troponins that maxed at 0.50. Cardiology was consulted. He underwent an echocardiogram which demonstrated ejection fraction of 40 to 45% with mildly reduced global left ventricular systolic function and no regional wall motion ab normalities. Cardiology was consulted. He underwent cardiac catheterization on 01/16 which revealed severe triple-vessel coronary artery disease with low left- sided filling pressures. CT surgery was subsequently consulted and he underwent cardiac bypass on 01/20. Patient seen and examined at bedside. He is doing well. He has some chest pain. No shortness of breath. No nausea or vomiting. Was having some issues with urinary retention yesterday per nursing but is getting better today. Also received a suppository. Vital signs reviewed General: Nontoxic, no distress, appears at stated age Cardiovascular: S1S2 reg, no murmur Lungs: CTA bilateral, no rhonchi, no rales, no accessory muscle use Abdominal: Soft, nontender to palpation, no guarding Ext: No gross muscle atrophy, no edema b/l lower extremities, no contractures Neuro: CN II-XI grossly intact, no focal neuro deficits Psych: Alert, oriented, appropriate affect Assessment/Plan: Non-ST segment elevated myocardial infarction Severe triple-vessel coronary artery disease s/p Off-pump coronary artery bypass grafting x 3 on 01/21/2024 Dyslipidemia Left carotid stenosis Cardiomyopathy, likely ischemic with EF 40-45% -Case discussed with Kriss Rodríguez NP. Once pacemaker wires are removed they will resume patient's Eliquis. -Pulmonary note reviewed: Continue current care -Cardiology note reviewed: Continue current care -Plavix 75 mg daily, aspirin 325 mg daily, Lipitor 40 mg daily -Metoprolol 12.5 twice daily. Midodrine 5 mg 3 times daily - outpatient vascular surgery follow-up Prediabetes with A1c 6.1 - carb consistent diet on discharge - repeat A1C in 3 months. Acute blood loss anemia - stable - Given hgb drop would recommend Ferrous sulfate 325 mg PO daily for the next several months. Rheumatoid arthritis Chronic back pain -Hold methotrexate -Continue with Elavil 25 mg in the morning and 75 mg at night, [place] 10/325 every 6 hours as needed for pain, Cymbalta 30 mg daily History of pulmonary embolism - Resume elequis when okay with CT surgery Constipation, resolved Chronic: Anemia GERD Imaging: Chest x-ray. Bilateral consolidation with small pleural effusion. Lower extremity arterial Doppler: Normal ABEL Carotid artery Doppler: Severe proximal left ICA stenosis > 70% Echocardiogram: Ejection fraction 40 to 45%, mild reduced global left ventricula r systolic function Data Review: Labs reviewed from today include CBC and basic metabolic profile which are remarkable for hemoglobin of 8. Thank you for allowing us to participate in the care of this pleasant patient. Do not hesitate to contact us with questions. Someone can be reached from the [facility] hospitalist group all hours of the day at [phone] or via [employer]. This dictation was prepared using [employer] voice recognition software. Though every attempt is made to correct errors during dictation some may still exist. Objective - Vital Signs Vital signs: Vital Signs Temp 96.4 F L 01/25/24 08:00 Pulse 86 01/25/24 12:51 Resp 16 01/25/24 10:00 BP 104/64 01/25/24 10:00 Pulse Ox 95 01/25/24 10:00 FiO2 50 01/22/24 08:00 Intake & Output 01/24/24 01/25/24 01/25/24 18:59 06:59 18:59 Intake Total 802 290 720 Output Total 1525 100 300 Balance -723 190 420 Weight 93.2 kg Intake: IV 252 240 20 0.9ns pressure bag 12 Lactated Ringers 1,000 ml 240 240 20 @ 20 mls/hr IV .Q24H [facility] Rx#:[id number] Intake, IV Titration 250 Amount Albumin Human 5% 250 ml 250 In Empty Bag 1 bag @ 250 mls/hr IVPB ONCE [facility] Rx#: [id number] Oral 550 50 450 Output: Urine 1525 100 300 Other: Voiding Method External Catheter Urinal Urinal ABP, PAP, CO, CI - Last Documented Arterial Blood Pressure 121/45 Pulmonary Artery Pressure 23/18 Cardiac Output 6 Cardiac Index 2.9 - Labs CBC & Chem 7: 01/25/24 05:32 01/25/24 05:32 Labs: Abnormal Lab Results - Last 24 Hours (Table) 01/24/24 01/24/2424 Range/Units 16:36 20:04 05:32 RBC 2.58 L (4.30-5.90) m/uL Hgb 8.0 L (13.0-17.5) gm/dL Hct 25.9 L (39.0-53.0) % MCV 100.5 H (80.0-100.0) fL RDW 16.1 H (11.5-15.5) % Chloride (98-107) mmol/L Glucose (74-99) mg/dL POC Glucose (mg/dL) 130 H 127 H (70-110) mg/dL 01/25/24 01/25/24 Range/Units 05:32 11:38 RBC (4.30-5.90) m/uL Hgb (13.0-17.5) gm/dL Hct (39.0-53.0) % MCV (80.0-100.0) fL RDW (11.5-15.5) % Chloride 108 H (98-107) mmol/L Glucose 102 H (74-99) mg/dL POC Glucose (mg/dL) 130 H (70-110) mg/dL
[2024-01-25 16:53] LABS: Glucose,Whole Blood 141 mg/dL (70-110)
[2024-01-25 21:33] LABS: Glucose,Whole Blood 138 mg/dL (70-110)
[2024-01-26 05:48] VITALS: TEMP 98.5
[2024-01-26 06:23] LABS: HCT 26.5 % (39.0-53.0); HGB 8.4 gm/dL (13.0-17.5); Hypochromasia Slight; MCH 31.7 pg (25.0-35.0); MCHC 31.5 g/dL (31.0-37.0); MCV 100.7 fL (80.0-100.0); Macrocytosis Slight; Mean Platelet Volume 7.6; Platelet Count 230 k/uL (150-450); RBC 2.64 m/uL (4.30-5.90); RDW 15.9 % (11.5-15.5); WBC 6.4 k/uL (3.8-10.6)
[2024-01-26 06:40] LABS: Glucose,Whole Blood 94 mg/dL (70-110)
[2024-01-26 06:52] LABS: ALT 18 U/L (4-49); AST 37 U/L (17-59); African American GFR (CKD) >90 (>60 ml/min/1.73 sqM); Albumin 3.2 g/dL (3.5-5.0); Alkaline Phosphatase 129 U/L (38-126); Anion Gap 7 mmol/L; Blood Urea Nitrogen 18 mg/dL (9-20); Calcium 8.9 mg/dL (8.4-10.2); Carbon Dioxide 26 mmol/L (22-30); Chloride 107 mmol/L (98-107); Glucose 89 mg/dL (74-99); Non-African American GFR(CKD) >90 (>60 ml/min/1.73 sqM); Potassium 4.2 mmol/L (3.5-5.1); Sodium 140 mmol/L (137-145); Total Bilirubin 0.7 mg/dL (0.2-1.3); Total Protein 5.5 g/dL (6.3-8.2)
--- NOTE | 2024-01-26 07:28 | P.PN ---
Subjective Progress Note Date: 01/26/24 PROGRESS NOTE The patient is a 78-year-old male who presented with symptoms of chest discomfort and non-STEMI, underwent cardiac catheterization and subsequently was found to have severe coronary artery disease and underwent CABG with KIDD to the LAD, SVG to the OM and to the RCA, performed on 20 January. He has a history of pulmonary embolism. Clinically he is doing well this morning, sitting up in the chair. He has no significant chest discomfort and continues to be in sinus mechanism. Hemodynamically he is stable. He is on no vasopressors. January 25: The patient is feeling well this morning, sitting up in the chair, denying any chest discomfort, dizziness or palpitations. Continues to be in sinus mechanism. Using his incentive spirometry. Ambulating in the unit without significant complaints. He has no nausea or vomiting. Medications: Aspirin, Plavix 75 mg daily, metoprolol 12.5 mg twice a day, paroxetine, Lipitor 40 mg daily PHYSICAL EXAMINATION: Blood pressure 148/80 heart rate 80 LUNGS: Clear to auscultation HEART: Regular rate and rhythm, S1, S2. No S3. Systolic ejection murmur ABDOMEN: Soft, nontender, no organomegaly EXTREMETIES: No edema LAB: Hemoglobin 8.4, BUN 18, creatinine 0.68 IMPRESSION: 1. Status post CABG for severe coronary artery disease 2. Status post pulmonary embolism in October 2022 with thrombectomy 3. History of rheumatoid arthritis 4. History of hyperlipidemia PLAN: 1. Increase physical activity 2. Patient will need to restart anticoagulation, would recommend to start anticoagulation and stop clopidogrel 3. Continue incentive spirometry 4. Increase metoprolol to 25 mg twice a day Objective - Vital Signs Vital signs: Vital Signs Temp 98.5 F 01/26/24 04:00 Pulse 87 01/26/24 07:00 Resp 18 01/26/24 07:00 BP 148/84 01/26/24 07:00 Pulse Ox 97 01/26/24 07:00 FiO2 50 01/22/24 08:00 Intake & Output 01/25/24 01/26/24 01/26/24 18:59 06:59 18:59 Intake Total 1070 275 Output Total 850 600 0 Balance 220 -325 0 Weight 94.3 kg Intake: IV 20 Lactated Ringers 1,000 ml 20 @ 20 mls/hr IV .Q24H [facility] Rx#:[id number] Intake, IV Titration 250 Amount Albumin Human 5% 250 ml 250 In Empty Bag 1 bag @ 250 mls/hr IVPB ONCE [facility] Rx#: [id number] Oral 800 275 Output: Urine 850 600 0 Other: Voiding Method Urinal Urinal # Bowel Movements 1 ABP, PAP, CO, CI - Last Documented Arterial Blood Pressure 121/45 Pulmonary Artery Pressure 23/18 Cardiac Output 6 Cardiac Index 2.9 - Labs CBC & Chem 7: 01/26/24 05:36 01/26/24 05:36 Labs: Abnormal Lab Results - Last 24 Hours (Table) 01/25/24 01/25/24 01/25/24 Range/Units 11:38 16:52 21:29 RBC (4.30-5.90) m/uL Hgb (13.0-17.5) gm/dL Hct (39.0-53.0) % MCV (80.0-100.0) fL RDW (11.5-15.5) % POC Glucose (mg/dL) 130 H 141 H 138 H (70-110) mg/dL Alkaline Phosphatase (38-126) U/L Total Protein (6.3-8.2) g/dL Albumin (3.5-5.0) g/dL 01/26/24 01/26/24 Range/Units 05:36 05:36 RBC 2.64 L (4.30-5.90) m/uL Hgb 8.4 L (13.0-17.5) gm/dL Hct 26.5 L (39.0-53.0) % MCV 100.7 H (80.0-100.0) fL RDW 15.9 H (11.5-15.5) % POC Glucose (mg/dL) (70-110) mg/dL Alkaline Phosphatase 129 H (38-126) U/L Total Protein 5.5 L (6.3-8.2) g/dL Albumin 3.2 L (3.5-5.0) g/dL
--- NOTE | 2024-01-26 07:51 | XR ---
EXAMINATION TYPE: XR chest 2V DATE OF EXAM: 01/26/2024 COMPARISON: 01/25/2024 TECHNIQUE: PA and lateral views submitted. HISTORY: Postop CABG FINDINGS: Heart is enlarged and there is postsurgical changes with a small bilateral pleural effusion and diffu se interstitial pattern. Diffuse osteopenia with arthropathy of the shoulders and degenerative change s of the spine. Post median sternotomy with atrial appendage clip. IMPRESSION: 1. Bilateral consolidation and small effusion correlate for mild CHF otherwise consider pneumonia.
[2024-01-26] MEDS: ASPIRIN 81 MG PO SCH (08:22)
[2024-01-26] MEDS: METOPROLOL TARTRATE 25 MG TAB PO SCH (08:22)
[2024-01-26] MEDS: APIXABAN 5 MG TAB PO SCH (08:22)
--- NOTE | 2024-01-26 08:58 | P.PN ---
Subjective Progress Note Date: 01/26/24 Principal diagnosis: Multivessel coronary artery disease, NSTEMI this admission, left internal carotid artery stenosis. Past medical history significant for pulmonary embolus in October 2022 status post INARI procedure on Eliquis For anticoagulation, hyperlipidemia, depression, chronic back pain, anemia, rheumatoid arthritis, GERD, previous tobacco dependence, and family history of coronary artery disease on his father's side. POD #5 Off pump coronary artery bypass grafting x 3. Left internal thoracic artery (in-situ) to left anterior descending coronary artery. Saphenous vein from aorta to distal right coronary artery. Saphenous vein from aorta to obtuse marginal artery #1, left atrial appendage ligation using a number 35 mm atrial clip, endoscopic right greater saphenous vein harvest, graft flow measurements using the [employer] flow meter system, excision of chest wall lesion, intraoperative transesophageal echocardiogram. Postoperative acute blood loss anemia, expected given hemodilution. The patient was seen and examined in follow-up today January 26, 2024 at his bedside in the intensive care unit. He is currently sitting up to the bedside chair, is awake, alert, oriented x 3 and is in no acute apparent distress. He denies any complaints of pain or shortness of breath at this time. Oxygen saturations are 98% on room air and he is achieving 1500 mL on his incentive spirometry with encouragement. Bedside telemetry is showing normal sinus rhythm heart rate 89 bpm. He remains hemodynamically stable and is currently on no inotropic or pressor support. He has been up ambulating in the intensive care unit hallway with standby assistance from nursing and therapy staff and tolerating well. Bowel movement this a.m. Laboratory and chest x-ray results were reviewed. Objective - Vital Signs Vital signs: Vital Signs Temp 98.5 F 01/26/24 04:00 Pulse 90 01/26/24 08:16 Resp 23 01/26/24 08:00 BP 143/84 01/26/24 08:00 Pulse Ox 95 01/26/24 08:17 FiO2 50 01/22/24 08:00 Intake & Output 01/25/24 01/26/24 01/26/24 18:59 06:59 18:59 Intake Total 1070 275 Output Total 850 600 0 Balance 220 -325 0 Weight 94.3 kg Intake: IV 20 Lactated Ringers 1,000 ml 20 @ 20 mls/hr IV .Q24H [facility] Rx#:[id number] Intake, IV Titration 250 Amount Albumin Human 5% 250 ml 250 In Empty Bag 1 bag @ 250 mls/hr IVPB ONCE [facility] Rx#: [id number] Oral 800 275 Output: Urine 850 600 0 Other: Voiding Method Urinal Urinal # Bowel Movements 1 ABP, PAP, CO, CI - Last Documented Arterial Blood Pressure 121/45 Pulmonary Artery Pressure 23/18 Cardiac Output 6 Cardiac Index 2.9 - Exam CONSTITUTIONAL: Sitting up to the bedside chair in the intensive care unit, appears comfortable, cooperative, no apparent acute distress. HEENT: Neck is supple, no JVD, no lymphadenopathy. RESPIRATORY: Lungs sounds essentially clear throughout, diminished to his bilateral bases. Respirations are symmetrical and nonlabored. Currently on room air with oxygen saturations 98%. Able to achieve 1500 mL on their incentive spirometry. Strong cough. CARDIOVASCULAR: Regular rhythm and rate. S1 and S2 present, negative for S3, gallop or murmur. Normal sinus rhythm on his bedside monitor, heart rate 89 bpm. Sternum is stable. Palpable peripheral pulses bilaterally, +1 edema to his bilateral lower extremities. No calf pain or tenderness noted. Heart hugger in place with patient demonstrating appropriate use. Knee-high RUPAL hose and sequential compression devices in place to his bilateral lower extremities. GASTROINTESTINAL: Abdomen soft, nontender, nondistended. Active bowel sounds present 4 quadrants. Tolerating diet. Passing flatus. No guarding or rigidity. Bowel movement today January 26, 2024 GENITOURINARY: Continues to void. Urine output 400 mL in the last 8 hours. INTEGUMENTARY: Skin is warm and dry with no evidence of clubbing or cyanosis. Midline sternal incision clean dry and well approximated, covered with dry intact dressing. Right lower extremity EVH sites well approximated without redness or drainage. NEUROLOGIC: Cranial nerves II through XII intact. No focal deficits. MUSKULOSKELETAL: Able to move all extremities, strength equal bilaterally, generalized weakness. PSYCHIATRIC: Alert and oriented to person place and time, appropriate affect, intact judgment and insight. INVASIVE LINES AND TUBES: Ventricular epicardial pacemaker wires present and are grounded. - Allied health notes Allied health notes reviewed: nursing - Labs CBC & Chem 7: 01/26/24 05:36 01/26/24 05:36 Labs: Abnormal Lab Results - Last 24 Hours (Table) 0401/25/24 01/25/24 Range/Units 11:38 16:52 21:29 RBC (4.30-5.90) m/uL Hgb (13.0-17.5) gm/dL Hct (39.0-53.0) % MCV (80.0-100.0) fL RDW (11.5-15.5) % POC Glucose (mg/dL) 130 H 141 H 138 H (70-110) mg/dL Alkaline Phosphatase (38-126) U/L Total Protein (6.3-8.2) g/dL Albumin (3.5-5.0) g/dL 01/26/24 01/26/24 Range/Units 05:36 05:36 RBC 2.64 L (4.30-5.90) m/uL Hgb 8.4 L (13.0-17.5) gm/dL Hct 26.5 L (39.0-53.0) % MCV 100.7 H (80.0-100.0) fL RDW 15.9 H (11.5-15.5) % POC Glucose (mg/dL) (70-110) mg/dL Alkaline Phosphatase 129 H (38-126) U/L Total Protein 5.5 L (6.3-8.2) g/dL Albumin 3.2 L (3.5-5.0) g/dL - Imaging and Cardiology Chest x-ray: report reviewed, image reviewed Assessment and Plan Assessment: Multivessel coronary artery disease, status post three-vessel coronary artery bypass grafting surgery Non-ST elevated myocardial infarction this admission Left internal carotid artery stenosis by carotid Doppler, asymptomatic History of pulmonary embolus in October 2022 status post INARI procedure, on Eliquis For anticoagulation last dose was on 01/14/2024 Hyperlipidemia, treated, cholesterol 147, LDL 71 History of depression, treated Chronic back pain, on chronic Plummer and Cymbalta as an outpatient Anemia of chronic disease Rheumatoid arthritis, on methotrexate outpatient, last dose 01/11/2024 Family history of coronary artery disease on his father's side GERD Remote history of nicotine dependence quit 43 years ago, preoperative FEV1 89% of predicted value Postoperative acute blood loss anemia, expected Hypotension, resolved Plan: Continue to maximize medical therapy with low-dose aspirin, statin, and beta- richard. Metoprolol tartrate increased to 25 mg p.o. twice daily, with hold parameters by cardiology. Start Eliquis 2.5 mg p.o. twice daily per home dose for history of pulmonary embolus, decrease aspirin to 81 mg p.o. daily. Discontinue Plavix. Encourage incentive spirometry use 10 times every hour while awake, bronchodilators per pulmonology/critical care medicine. Increase activity, ambulate as tolerated. PT/OT/cardiac rehab following. Will monitor daily labs and chest x-rays, electrolyte replacement per protocol. GI/DVT prophylaxis. Pain control per current medication regimen. Insulin management per internal medicine. Preoperative hemoglobin A1c 6.1%. Continue to record strict accurate intake and output. Lasix 20 mg IV x 1 now, potassium chloride 10 mEq p.o. x 1 now Discontinue midodrine. Shower daily. Daily weights. Ventricular epicardial pacemaker wires removed without incident at 7:30 AM today, bedrest for 1 hour post pacemaker wire removal. Anticipate discharge home within the next 24 hours with home health care. More recommendations to follow based on patient's clinical course. Time with Patient: Greater than 30
--- NOTE | 2024-01-26 09:05 | P.PN ---
Subjective Progress Note Date: 01/26/24 Patient is a 78-year-old white male with past medical history significant for pulmonary embolism status post INARI procedure and chronically anticoagulated on Eliquis, hyperlipidemia, rheumatoid arthritis, PMR, multiple previous back surgeries and altered gait, and remote history of nicotine use over 20 years ago. No known pre-existing lung disease. Follows at the [facility] in [place]. On 01/16/2024 the patient presented to [facility] complaining of new onset substernal chest pain that radiated to his left jaw and bilateral arms. He denied any associated shortness of breath, nausea, diaphoresis. This occurred while watching TV. Patient did not immediately present to the hospital because his was at [employer]. He was later drove to the hospital, approximately 2 hours later. Initial workup was suspicious for non-ST elevation [place], and patient was transferred to [facility] for further evaluation. He was started on IV heparin per protocol. He did undergo a transthoracic echocardiogram which showed a reduced ejection fraction of 40 to 45% with moderate mitral valve regurgitation. Subsequently, the patient did undergo a cardiac catheterization done 01/17/2024 which showed severe multivessel coronary artery disease. Disease vessels included the RCA with a tubular lesion of approximately 70-80% stenosis, LAD also had a long tubular lesion with a range of 60% stenosis, the the first obtuse marginal branch of the left circumflex artery had an ostial lesion with a range of approximately 90% stenosis. Cardiothoracic surgery was asked to evaluate the patient for surgical myocardial revascularization. We were then consulted for pulmonary clearance. On my evaluation, the patient is currently resting in bed, on room air, in no acute distress. Heparin continues to be infusing. Patient denies any current chest pain. Denies any shortness of breath or pulmonary complaints. Denies any history of lung disease. 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 A bedside spirometry showed an FEV1 of 2.79 L or 89% of predicted. CT of the chest from outside facility reviewed. No obvious pulmonary emboli. Small 2 x 4 mm pulmonary nodule, likely benign. No acute cardiopulmonary process. Eliquis is on hold. Heparin is infusion per protocol. Most recent APTT therapeutic. Most recent CBC and BMP from yesterday unremarkable. Troponins peaked at 0.5 at our facility. Hemodynamically stable. Progress note dated January 20, 2024. This is a 78-year-old male that we saw yesterday in consultation. The patient is scheduled for bypass grafting, tomorrow, January 20. The patient is on room air. He is not receiving any IV fluids. The patient does continue on IV hep eben. Yesterday I introduced myself to the patient, and basically told him my role in this whole process, which is to get him off the mechanical ventilator as soon as possible, and to also maintain normal lung function, throughout his hospital course. I told him the incentive spirometer, in that regard, was very important. No new labs today other than a PTT of 55.9. Progress note dated January 22, 2024. 78-year-old male seen in the intensive care unit, room 251. The patient is postop day #1, status post off-pump, three-vessel bypass grafting. Currently, he is on pressure support of 5, and CPAP of 5, and 50%. Arterial blood gases this morning show pO2 127, pCO2 41, and pH is 7.37. His insulin is on hold. His lactated Ringer's is running at 50 cc an hour. Current labs include a white count 5.9, hemoglobin 8.4, hematocrit 27, platelet count 119,000. Sodium 136, potassium 4.6, chlorides 108, CO2 26, BUN 10, creatinine 0.61. Glucose is 123. Calcium is 8.3. Albumin is 3.2. Chest x-ray shows a properly placed endotracheal tube. Chest x-ray also shows some bibasilar atelectasis or infiltrates, and postsurgical changes. Progress note dated January 23, 2024. 78-year-old male seen in room 251. The patient is postoperative day #2, status post off-pump three-vessel bypass surgery. Yesterday he was doing better. Today, he is on 8 L of oxygen by nasal cannula. He is getting lactated Ringer's at 30 cc an hour. He has been on and off of norepinephrine. His chest x-ray suggest fluid overload, and apparently, cardiothoracic surgery plans on giving him some Lasix. He just does not look as well as he did yesterday. White count is 8.3, hemoglobin 8.3, hematocrit 26.5, and platelet count 131,000. Sodium 134, potassium 4.1, chlorides 106, CO2 22, BUN 15, creatinine 0.89. Glucose is 103. Albumin 3.4. Chest x-ray shows increasing vascular congestion and CHF changes. Progress note dated January 24, 2024. 78-year-old male seen today in room 251. He is postoperative day #3, status post off-pump three-vessel bypass surgery. He is getting lactated Ringer's at KVO. He is on 2 L of oxygen. He is currently resting comfortably. He has no complaints today. Current labs include a white count 7.9, hemoglobin 8.3, hematocrit 25.6, and a platelet count of 155,000. Sodium 138, potassium 4.3, chlorides 109, CO2 23, BUN 16, creatinine 0.81. Albumin is 3.1. Chest x-ray shows cardiomegaly, with increased pulmonary vascular Digestion, which is slightly improved. The patient does have patchy bilateral airspace infiltrates. Left-sided chest tube is noted. On today's evaluation 01/25/2024, the patient is being seen for a follow-up. The patient is postop day #4 following heart surgery. His the patient is doing well. No specific complaints. He is currently on room air oxygen. Chest tubes have been removed. He has still the pacemaker wires in place. He has previous history of DVT and pulmonary embolism and the patient is awaiting l removals prior to him being restarted on anticoagulation. He has no major respiratory distress. He is post three-vessel bypass surgery. He is using incentive spirometer pulling approximately 1500. WBC count is 6 with a hemoglobin of 8 and a platelet count of 161. BUN is 19 with a creatinine of 0.7. Afebrile. Cardiac rhythm is sinus and a blood sugar is at 130. On today's evaluation of 01/26/2024, the patient is on room air oxygen. He is postop day #5. Repeat chest x-ray from today shows some increased interstitial marking and fluid in the fissure. The patient will be given a dose of Lasix. Pacemaker wires have been removed. The patient will be started on anticoagulation. He is using the incentive spirometer. Pulling more than 1500 on his r. is hemoglobin currently is at 8.4 with a white cell count of 6.4, BUN is 18 with a creatinine of 0.6. Cardiac rhythm is sinus. He is on aspirin. He is on anticoagulation with Eliquis 5 mg twice a day. He is on Lipitor 40 mg p.o. daily. He is also on metoprolol at a dose of 25 mg twice daily. No edema in his lower extremities. No other significant events overnight. Pain is under adequate control for now. He is ambulating. Objective - Vital Signs Vital signs: Vital Signs Temp 98.5 F 01/26/24 04:00 Pulse 90 01/26/24 08:16 Resp 23 01/26/24 08:00 BP 143/84 01/26/24 08:00 Pulse Ox 95 01/26/24 08:17 FiO2 50 01/22/24 08:00 Intake & Output 01/25/24 01/26/24 01/26/24 18:59 06:59 18:59 Intake Total 1070 275 Output Total 850 600 0 Balance 220 -325 0 Weight 94.3 kg Intake: IV 20 Lactated Ringers 1,000 ml 20 @ 20 mls/hr IV .Q24H [facility] Rx#:[id number] Intake, IV Titration 250 Amount Albumin Human 5% 250 ml 250 In Empty Bag 1 bag @ 250 mls/hr IVPB ONCE [facility] Rx#: [id number] Oral 800 275 Output: Urine 850 600 0 Other: Voiding Method Urinal Urinal # Bowel Movements 1 ABP, PAP, CO, CI - Last Documented Arterial Blood Pressure 121/45 Pulmonary Artery Pressure 23/18 Cardiac Output 6 Cardiac Index 2.9 - Exam CONSTITUTIONAL: Sitting up to the bedside chair in the intensive care unit, appears comfortable, cooperative, no apparent acute distress. HEENT: Neck is supple, no JVD, no lymphadenopathy. RESPIRATORY: Lungs sounds essentially clear throughout, diminished to his bilateral bases. Respirations are symmetrical and nonlabored. Currently on room air with oxygen saturations 98%. Able to achieve 1500 mL on their incentive spirometry. Strong cough. CARDIOVASCULAR: Regular rhythm and rate. S1 and S2 present, negative for S3, gallop or murmur. Normal sinus rhythm on his bedside monitor, heart rate 89 bpm. Sternum is stable. Palpable peripheral pulses bilaterally, +1 edema to his bilateral lower extremities. No calf pain or tenderness noted. Heart hugger in place with patient demonstrating appropriate use. Knee-high RUPAL hose and sequential compression devices in place to his bilateral lower extremities. GASTROINTESTINAL: Abdomen soft, nontender, nondistended. Active bowel sounds present 4 quadrants. Tolerating diet. Passing flatus. No guarding or rigidity. Bowel movement today January 26, 2024 GENITOURINARY: Continues to void. Urine output 400 mL in the last 8 hours. INTEGUMENTARY: Skin is warm and dry with no evidence of clubbing or cyanosis. Midline sternal incision clean dry and well approximated, covered with dry intact dressing. Right lower extremity EVH sites well approximated without redness or drainage. NEUROLOGIC: Cranial nerves II through XII intact. No focal deficits. MUSKULOSKELETAL: Able to move all extremities, strength equal bilaterally, generalized weakness. PSYCHIATRIC: Alert and oriented to person place and time, appropriate affect, intact judgment and insight. INVASIVE LINES AND TUBES: Ventricular epicardial pacemaker wires present and are grounded. - Labs CBC & Chem 7: 01/26/24 05:36 01/26/24 05:36 Labs: Abnormal Lab Results - Last 24 Hours (Table) 01/25/24 01/25/24 01/25/24 Range/Units 11:38 16:52 21:29 RBC (4.30-5.90) m/uL Hgb (13.0-17.5) gm/dL Hct (39.0-53.0) % MCV (80.0-100.0) fL RDW (11.5-15.5) % POC Glucose (mg/dL) 130 H 141 H 138 H (70-110) mg/dL Alkaline Phosphatase (38-126) U/L Total Protein (6.3-8.2) g/dL Albumin (3.5-5.0) g/dL 01/26/24 01/26/24 Range/Units 05:36 05:36 RBC 2.64 L (4.30-5.90) m/uL Hgb 8.4 L (13.0-17.5) gm/dL Hct 26.5 L (39.0-53.0) % MCV 100.7 H (80.0-100.0) fL RDW 15.9 H (11.5-15.5) % POC Glucose (mg/dL) (70-110) mg/dL Alkaline Phosphatase 129 H (38-126) U/L Total Protein 5.5 L (6.3-8.2) g/dL Albumin 3.2 L (3.5-5.0) g/dL Assessment and Plan Plan: Postop day #4, S/P off-pump three-vessel bypass grafting. Routine postoperative ventilator management, with anticipated extubation on January 22, 2024. Non-ST elevation myocardial infarction, patient was transferred from [facility] 01/16/2024. Did undergo heart catheterization at our facility 01/17/2024 which showed severe multivessel coronary artery disease. Diseased vessels included the RCA with a tubular lesion of approximately 70-80% stenosis, LAD also had a long tubular lesion with a range of 60% stenosis, the the first obtuse marginal branch of the left circumflex artery had an ostial lesion with a range of approximately 90% stenosis. Currently on heparin infusion per protocol. Cardiothoracic surgery was asked to evaluate the patient for surgical myocardial revascularization. Multivessel coronary artery disease. History of pulmonary embolism, status post INARI procedure, has been chronically anticoagulated on Eliquis. Remote history of tobacco use. Severe proximal left ICA stenosis. Hyperlipidemia. History of rheumatoid arthritis. History of PMR. History of multiple previous back surgeries and chronic lower back pain. GERD, without esophagitis. Plan: Continue using the incentive spirometer. The pacemaker wires has been removed Anticoagul with Eliquis 2.5 mg twice a day Continue metoprolol 25 mg twice a day. Continue aspirin Lasix 20 mg IV x 1 Home medications have been resumed. Increase mobility and activity and will continue to follow. 5
[2024-01-26] MEDS ORDERED: APIXABAN 2.5 MG TABLET PO SCH ×2 (09:14→21:00)
[2024-01-26] MEDS: POTASSIUM CHLORIDE ER 10 MEQ TAB.ER.PRT PO STA (09:36)
[2024-01-26] MEDS: FUROSEMIDE 10 MG/ML 2 ML VIAL IV ONE (09:36)
--- NOTE | 2024-01-26 11:41 | P.DS ---
Providers Date of admission: 01/16/24 23:15 Expected date of discharge: 01/26/24 Attending physician: Camden Gillespie MD Consults: 01/16/24 23:15 Consult Physician Routine Consulting Provider: [facility] Consult Reason/Comments: nstemi Do you want consulting provider notified?: Yes 01/17/24 15:12 Consult Physician Routine Consulting Provider: Katie Malloy Consult Reason/Comments: Evaluation for CABG Do you want consulting provider notified?: Yes 01/18/24 08:15 Consult Physician Routine Consulting Provider: Arley Montoya Consult Reason/Comments: pulm clearance Do you want consulting provider notified?: Yes 01/20/24 10:56 Consult to Anesthesia Routine Consulting Provider: Anesthesia,Services Consult Reason/Comments: Cardiac Surgery Pre-Op 01/21/24 13:14 Consult Physician Routine Consulting Provider: Kendell Hickman Consult Reason/Comments: med mgmt Do you want consulting provider notified?: Already Contacted Primary care physician: [facility] Course: FINAL DIAGNOSIS: Multivessel coronary artery disease, status post three-vessel coronary artery bypass grafting surgery Non-ST elevated myocardial infarction this admission Left internal carotid artery stenosis by carotid Doppler, asymptomatic History of pulmonary embolus in October 2022 status post INARI procedure, on Eliquis For anticoagulation last dose was on 01/14/2024 Hyperlipidemia, treated, cholesterol 147, LDL 71 History of depression, treated Chronic back pain, on chronic [place] and Cymbalta as an outpatient Anemia of chronic disease Rheumatoid arthritis, on methotrexate outpatient, last dose 01/11/2024 Family history of coronary artery disease on his father's side GERD Remote history of nicotine dependence quit 43 years ago, preoperative FEV1 89% of predicted value Postoperative acute blood loss anemia, expected Hypotension, resolved PRINCIPAL PROCEDURE: 1. Off pump coronary artery bypass grafting x 3. Left internal thoracic artery (in-situ) to left anterior descending coronary artery. Saphenous vein from aorta to distal right coronary artery. Saphenous vein from aorta to obtuse marginal artery #1 2. Left atrial appendage ligation using #35mm AtriClip 3. Endoscopic right greater saphenous vein harvest 4. Graft flow measurements using the Medi-Stim flow meter system 5. Excision of chest wall lesion 6. Intraoperative transesophageal echocardiogram completed by anesthesia HISTORY OF PRESENT ILLNESS: This is a 78-year-old gentleman who follows on an outpatient basis with the [facility] for his primary care. On January 16, 2024 the patient presented to the emergency department at [facility] with complaints of chest pain radiating to his jaw, his back and left arm. He denied any associated symptoms of nausea or shortness of breath. The patient reported the pain came on while he was watching TV, and lasted for about 15 minutes. A couple hours after the pain resolved he had another episode of chest pain in which she decided to seek medical care. In the emergency department at [facility] he underwent some workup which revealed positive troponins and some EKG changes. Due to the patient's presenting symptoms and elevated troponins he was subsequently transferred to the emergency department here at [facility] for further workup and evaluation. Cardiology was consulted, the patient's troponins were as high as 0.500 and he was ruled in for an acute non-ST elevated myocardial infarction. He was recommended to undergo a cardiac catheterization which was completed on January 17, 2024. The cardiac catheterization demonstrated a 70-80% lesion to his right coronary artery, a 90% stenosis to his obtuse marginal branch of the circumflex and a 60% stenosis to his LAD with an IFR of 0.77. Also on January 16, 2024 a transthoracic 2D echocardiogram was completed which showed a mildly impaired left ventricular function with an ejection fraction between 40 and 45%, moderate mitral valve regurgitation and a normal size aortic root and proximal ascending aorta. Subsequently, due to the patient's presenting symptoms and findings on the cardiac catheterization a consult was placed to Dr. Camden Gillespie from cardiothoracic surgery for further evaluation and treatment recommendations. Dr. Gillespie met with the patient and the patient's , results of the cardiac catheterization were discussed, treatment options were discussed including myocardial vascularization surgery. Risks and benefits of surgery including an STS risk or were discussed, a clinical frailty score was calculated and knowing and understanding the risks the patient wished to proceed with the surgical option. HOSPITAL COURSE: The patient was brought to the preoperative area on 01/21/24, prepared in the usual fashion, and subsequently taken to the operating room where Dr. Gillespie performed 3 vessel off-pump coronary artery bypass grafting surgery. Upon completion of surgery the patient was transferred to the cardiovascular intensive care unit where he was recovered and monitored hemodynamically. He was extubated, all lines, tubes, and drips were discontinued when appropriate. Transfer orders were placed for 3 S. cardiac stepdown unit and due to lack of bed availability on the third floor cardiac stepdown unit he was kept in the intensive care unit until discharge. His oxygen was titrated down, he continued to work with physical and occupational therapy, he was tolerating oral diet, his pain was controlled, and he was ready to be discharged to home with [facility] postoperative day [facility]5. He received written and verbal instruction regarding his medications, activity restrictions, signs and symptoms requiring physician notification, and follow-up appointments. Patient Condition at Discharge: Serious Plan - Discharge Summary Discharge Rx Participant: No New Discharge Prescriptions: New Atorvastatin [Lipitor] 40 mg PO DAILY #30 tab Aspirin 81 mg PO DAILY #30 tab Ferrous Sulfate [Iron (65 MG Elemental)] 325 mg PO W/LUNCH #7 tab Metoprolol Tartrate [Lopressor] 25 mg PO BID #60 tab Continue HYDROcodone/APAP 10-325MG [[place] 10-325] 1 tab PO Q6HR PRN PRN Reason: Pain Multivitamins, Thera [Multivitamin (formulary)] 1 tab PO DAILY DULoxetine HCL [Cymbalta] 30 mg PO DAILY Amitriptyline HCl [Elavil] 75 mg PO HS Amitriptyline HCl [Elavil] 25 mg PO DAILY Cholecalciferol [Vitamin D3 (125 Mcg = 5000 Iu)] 125 mcg PO DAILY Docusate Sodium 250 mg PO TID Omeprazole 20 mg PO DAILY PARoxetine [Paxil] 20 mg PO DAILY Discontinued Metoprolol Succinate (ER) [Toprol Xl] 25 mg PO HS Lovastatin [Mevacor] 20 mg PO DAILY No Action Apixaban [Eliquis] 2.5 mg PO BID metHOTREXate sodium 12.5 mg PO MO Discharge Medication List Amitriptyline HCl [Elavil] 25 mg PO DAILY 01/17/24 [History] Amitriptyline HCl [Elavil] 75 mg PO HS 01/17/24 [History] Apixaban [Eliquis] 2.5 mg PO BID 01/17/24 [History] Cholecalciferol [Vitamin D3 (125 Mcg = 5000 Iu)] 125 mcg PO DAILY 01/17/24 [History] DULoxetine HCL [Cymbalta] 30 mg PO DAILY 01/17/24 [History] Docusate Sodium 250 mg PO TID 01/17/24 [History] HYDROcodone/APAP 10-325MG [[place] 10-325] 1 tab PO Q6HR PRN 01/17/24 [History] Multivitamins, Thera [Multivitamin (formulary)] 1 tab PO DAILY 01/17/24 [History] Omeprazole 20 mg PO DAILY 01/17/24 [History] PARoxetine [Paxil] 20 mg PO DAILY 01/17/24 [History] metHOTREXate sodium 12.5 mg PO MO 01/17/24 [History] Aspirin 81 mg PO DAILY #30 tab 01/26/24 [Rx] Atorvastatin [Lipitor] 40 mg PO DAILY #30 tab 01/26/24 [Rx] Ferrous Sulfate [Iron (65 MG Elemental)] 325 mg PO W/LUNCH #7 tab 01/26/24 [Rx] Metoprolol Tartrate [Lopressor] 25 mg PO BID #60 tab 01/26/24 [Rx] Follow up Appointment(s)/Referral(s): Leia Romeo NPC [Nurse Practitioner] - 02/02/24 3:00 pm [facility] [NON-STAFF] - 4 Weeks Rabia Mullins NPC [Family Provider] - 1-2 days (Spoke with Sruthi at the CT clinic, somebody will call with a follow-up appointment as there needs to be in order placed for the patient [facility].) Sang Leon MD [STAFF PHYSICIAN] - 1 Week (Spoke with Maury at Dr. Leon's office, the office will call you with a follow-up appointment.) Arley Montoya DO [Doctor of Osteopathic Medicine] - 02/15/24 10:00 am [facility] [NON-STAFF] - 1-2 Days Camden Gillespie MD [STAFF PHYSICIAN] - 02/25/24 2:30 pm Ambulatory/Diagnostic Orders: Complete Blood Count w/diff [LAB.AMB] Time Frame: 01/29/24, Facility: [facility], Location: Laboratory [facility] Comprehensive Metabolic Panel [LAB.AMB] Time Frame: 01/29/24, Facility: [facility], Location: [facility] Activity/Diet/Wound Care/Special Instructions: DISCHARGE INSTRUCTIONS: 1. No driving for 4 weeks, or until physician gives their ok. 2. The patient should sleep in their own bed, no medical bed needed. 3. Stairs are not an issue. If the bedroom is upstairs, it is advised that the patient go up at night and down in the morning for the first week. Go slowly, using handrail and take 1 step at a time. 4. RUPAL hose are to be worn for 30 days post surgery or until physician discontinues. 5. Heart hugger is to be worn 100% of the time until physician discontinues.(except when showering) 6. No lifting, pushing, or pulling more than 10 pounds for 12 weeks. The physician will advise of any restriction changes. 7. The patient is expected to continue the prescribed walking program. 8. Continue pain control per as needed orders. 9. Continue with incentive spirometry and splinting/heart hugger until otherwise directed by the physician. 10. Must shower daily using liquid antibacterial soap 11. Routine sternal incision care. No powders, lotions, ointments on incisions. No dressings are necessary on incisions unless they are draining. Dermabond tape is to remain on sternal incision until surgeon follow-up. 12. Please call surgeon/COMMERCIAL AGENT for temp greater than 101 F or purulent drainage from incisions. 13. You should weigh yourself daily, record and bring log with you to follow up appointments. 14. All prescriptions given by surgeon for 30 days. Refills need to be filled through office equipment technician/primary care physician. 15. A Red armband has been placed on the patient. It should be worn for 30 days post discharge from surgery and will be removed by the cardiac surgeons. If an ER visit is necessary, please make sure the number on the Red armband is called before going to ER. 16. You have been referred to and are expected to begin Cardiac Rehab in approximately 4-6 weeks. 17. Quitting smoking is the most important step you can take to improve your health. For additional information and assistance to quit smoking, please call the [place] tobacco quit line (3-889-SJMQ-NOW/ ) or online: https://www.[place].gov/reading hospital/fhrl-is-jptdwaq/chronicdiseases/tobacco/how-to-qu it-tobacco HOME HEALTH SERVICES TO PROVIDE: RN SKILLED HOME CARE SERVICES FOR POST-OP SURGICAL PATIENTS WITH THE FOLLOWING: Coronary Artery Bypass Surgery (CABG), Mitral Valve Replacement/Repair ( MVR), Aortic Valve Replacement/Repair (AVR) RN TO CONTINUE EDUCATION FROM ``ROAD TO A HEALTH HEART PATIENT EDUCATION MANUAL (GIVEN TO PATIENT IN THE HOSPITAL) MEDICATION RECONCILIATION WITH EDUCATION NEEDED ON FIRST HOME VISIT EMPHASIZE IMPORTANCE OF WEARING BREAST SUPPORT/HEART HUGGER ENCOURAGE USE OF INCENTIVE SPIROMETER 10 X EVERY HOUR WHILE AWAKE ENCOURAGE UTILIZATION OF LOWER EXTREMITY COMPRESSION STOCKINGS/RUPAL HOSE and ELEVATE LEGS ABOVE LEVEL OF HEART WHILE AT REST. ENCOURAGE AMBULATION 3-5x/day INCREASING TOLERATES, WHILE AVOIDING EXTREMES IN TEMPERATURE FREQUENCY: RN TO OPEN THE PATIENT WITHIN 24 HOURS OF DISCHARGE FROM THE HOSPITAL WITH TELEHEALTH INSTALLED AT [facility], RN TO VISIT 2-3 X A WEEK FOR 4 WEEKS ESTABLISHED BY PATIENT NEEDS. LABORATORY: CBC, CMP TO BE DRAWN ON THE THIRD DAY HOME, (RAN STAT) FAX RESULTS TO [phone]. TELEHEALTH PARAMETERS: WEIGHT: NOTIFY MD OF WEIGHT GAIN OF 2 LBS IN 24 HOURS OR 5 LBS IN ONE WEEK HR: NOTIFY MD OF HR <55 BPM OR HR>100 BPM BP: NOTIFY MD IF BP <90/55 OR BP>140/100 O2 SAT: NOTIFY MD IF PO2<93% ON ROOM AIR SEND TELEHEALTH REPORT TO FLOORING HELPER AND CARDIOVASCULAR SURGEON THE FIRST WEEK OF CARE AND THEN BI-WEEKLY. PLEASE ADDITIONALLY COMMUNICATE ANY ABNORMALS AND NEW FINDINGS TO THE SURGEONS OFFICE. Discharge Disposition: HOME WITH HOME HEALTH SERVICES
--- NOTE | 2024-01-26 13:21 | P.PN ---
Subjective Progress Note Date: 01/26/24 Patient is a 78-year-old male with chronic low back pain, prior pulmonary embolism, and rheumatoid arthritis who initially was transferred from an outside facility for evaluation of chest pain. On arrival here he had mildly elevated troponins that maxed at 0.50. Cardiology was consulted. He underwent an echocardiogram which demonstrated ejection fraction of 40 to 45% with mildly reduced global left ventricular systolic function and no regional wall motion abnormalities. Cardiology was consulted. He underwent cardiac catheterization on 01/16 which revealed severe triple-vessel coronary artery disease with low left-sided filling pressures. CT surgery was subsequently consulted and he u nderwent cardiac bypass on 01/20. Patient seen and examined at bedside with present. Doing well. Excited to go home. No complaints currently. We reviewed that his A1c was elevated and that he should have this rechecked in 6 months. They [facility] [place] and will be able to do that. Vital signs reviewed General: Nontoxic, no distress, appears at stated age Cardiovascular: S1S2 reg, no murmur Lungs: CTA bilateral, no rhonchi, no rales, no accessory muscle use Abdominal: Soft, nontender to palpation, no guarding Ext: No gross muscle atrophy, no edema b/l lower extremities, no contractures Neuro: CN II-XI grossly intact, no focal neuro deficits Psych: Alert, oriented, appropriate affect Assessment/Plan: Non-ST segment elevated myocardial infarction Severe triple-vessel coronary artery disease s/p Off-pump coronary artery bypass grafting x 3 on 01/21/2024 Dyslipidemia Left carotid stenosis Cardiomyopathy, likely ischemic with EF 40-45% .-Case discussed with cardiothoracic surgery nurse practitioner and patient will be discharged today He was resume on his eliquis. -Plavix 75 mg daily, aspirin 325 mg daily, Lipitor 40 mg daily -Metoprolol 25 twice daily. - outpatient vascular surgery follow-up Prediabetes with A1c 6.1 - carb consistent diet on discharge -Added to discharge tab to have repeat A1c drawn in 3 to 6 months. Verbally to ld patient and . They are aware and in agreement Acute blood loss anemia - stable - Given hgb drop would recommend Ferrous sulfate 325 mg PO daily for the next several months. Rheumatoid arthritis Chronic back pain -Hold methotrexate -Continue with Elavil 25 mg in the morning and 75 mg at night, [place] 10/325 every 6 hours as needed for pain, Cymbalta 30 mg daily History of pulmonary embolism - Eliquis 2.5 mg BID Constipation, resolved Chronic: Anemia GERD Data Review: Labs reviewed from today include CBC and CMP which are remarkable for hemoglobin 8.4. Thank you for allowing us to participate in the care of this pleasant patient. Do not hesitate to contact us with questions. Someone can be reached from the [facility] hospitalist group all hours of the day at [phone] or via [email or web address]. This dictation was prepared using [employer] voice recognition software. Though every attempt is made to correct errors during dictation some may still exist. Objective - Vital Signs Vital signs: Vital Signs Temp 98.5 F 01/26/24 04:00 Pulse 76 01/26/24 12:00 Resp 17 01/26/24 12:00 BP 135/82 01/26/24 12:00 Pulse Ox 97 01/26/24 11:00 FiO2 50 01/22/24 08:00 Intake & Output 01/25/24 01/26/24 01/26/24 18:59 06:59 18:59 Intake Total 1070 275 240 Output Total 850 600 250 Balance 220 -325 -10 Weight 94.3 kg Intake: IV 20 Lactated Ringers 1,000 ml 20 @ 20 mls/hr IV .[facility] Rx#:[id number] Intake, IV Titration 250 Amount Albumin Human 5% 250 ml 250 In Empty Bag 1 bag @ 250 mls/hr IVPB ONCE STA Rx#: [id number] Oral 800 275 240 Output: Urine 850 600 250 Other: Voiding Method Urinal Urinal Urinal # Voids 1 # Bowel Movements 1 ABP, PAP, CO, CI - Last Documented Arterial Blood Pressure 121/45 Pulmonary Artery Pressure 23/18 Cardiac Output 6 Cardiac Index 2.9 - Labs CBC & Chem 7: 01/26/24 05:36 01/26/24 05:36 Labs: Abnormal Lab Results - Last 24 Hours (Table) 01/25/24 01/25/24 01/26/24 Range/Units 16:52 21:29 05:36 RBC 2.64 L (4.30-5.90) m/uL Hgb 8.4 L (13.0-17.5) gm/dL Hct 26.5 L (39.0-53.0) % MCV 100.7 H (80.0-100.0) fL RDW 15.9 H (11.5-15.5) % POC Glucose (mg/dL) 141 H 138 H (70-110) mg/dL Alkaline Phosphatase (38-126) U/L Total Protein (6.3-8.2) g/dL Albumin (3.5-5.0) g/dL 01/26/24 Range/Units 05:36 RBC (4.30-5.90) m/uL Hgb (13.0-17.5) gm/dL Hct (39.0-53.0) % MCV (80.0-100.0) fL RDW (11.5-15.5) % POC Glucose (mg/dL) (70-110) mg/dL Alkaline Phosphatase 129 H (38-126) U/L Total Protein 5.5 L (6.3-8.2) g/dL Albumin 3.2 L (3.5-5.0) g/dL
[2024-01-26 14:04] VITALS: BP 128/80; PULSE 78; RESP 11
--- NOTE | 2024-01-27 12:50 | CDI ---
Documentation Clarification Form Date: 01/27/2024 12:37:26 PM From: Era Zepeda Phone: Admit Date: 01/16/2024 11:15:00 PM Patient Name: Chris Robin Visit Number: [id number] Discharge Date: 01/26/2024 02:01:00 PM ATTENTION: The Clinical Documentation Specialists (CDI) and [facility] Coding Staff appreciate your assistance in clarifying documentation. Please respond to the clarification below the line at the bottom and electronically sign. The CDI & [facility] Coding staff will review the response and follow-up if needed. Please note: Queries are made part of the Legal Health Record. If you have any questions, please contact the author of this message via ITS. Dr. Kendell Hickman The final diagnosis of the pathology report states Ulcerwithnecrosisand acuteinflammation. Coding guidelines do not allow coding professionals to code based on pathology results; therefore, clarification is requested. History/risk factors: 78yo M, CAD, NSTEMI, LICA stenosis, HLD, CBP, anemia of chronic disease, RA, FHx CAD, former smoker Clinical Indicators: Specimen is labeled "Chris Robin, chest walllesion" and consists of an unoriented ellipse of mendoza skin, 6 x 1.2 cm, that is excised to a depth of 1 cm. Near central on the skin surface is a 1 x 1 cm area of purple- greendiscoloration. The margin is inked and the area ofdiscolorationis entirely submitted. Treatment: Excision - Chest walllesion Please clarify if you agree with the pathology report diagnosis of ulcerwithnecrosisand acuteinflammation: [ ] Yes [ ] No [ ] Other (please specify) [ X] Unable to determine (Template Last Revised: November 2020) I only saw the patient once in the beginning for chest pain, please reach out to discharging physician , Dr Crespo for clarification MTDD
--- NOTE | 2024-02-08 11:13 | CDI ---
Documentation Clarification Form Date: 02/08/2024 11:10:13 AM From: Era Zepeda Phone: Admit Date: 01/16/2024 11:15:00 PM Patient Name: Chris Robin Visit Number: [id number] Discharge Date: 01/26/2024 02:01:00 PM ATTENTION: The Clinical Documentation Specialists (CDI) and [facility] Coding Staff appreciate your assistance in clarifying documentation. Please respond to the clarification below the line at the bottom and electronically sign. The CDI & [facility] Coding staff will review the response and follow-up if needed. Please note: Queries are made part of the Legal Health Record. If you have any questions, please contact the author of this message via ITS. Dr. Caryn Montana The final diagnosis of the pathology report statesUlcerwithnecrosisand acuteinflammation. Coding guidelines do not allow coding professionals to code based on pathology results; therefore, clarification is requested. History/risk factors: 78yo M,CAD,NSTEMI, LICAstenosis,HLD, CBP,anemia of chronic disease,RA, FHxCAD,former smoker Clinical Indicators: Specimen is labeled "Chris Robin, chest walllesion" and consists of an unoriented ellipse of mendoza skin, 6 x 1.2 cm, that isexcisedto a depth of 1 cm. Near central on the skin surface is a 1 x 1 cm area of purple-greendiscoloration. The margin is inked and the area ofdiscolorationis entirely submitted. Treatment:Excision- Chest walllesion Please clarify if you agree with the pathology report diagnosis of ulcerwithnecrosisand acuteinflammation: [ ] Yes [ ] No [ ] Other (please specify) [x ] Unable to determine (Template LastRevised: November 2020) Please send cardiothoracic surgery who submitted this lesion MTDD
== END 2024-01-26 14:01 | disposition home health service (06) | DRG 235 ==
LOC: EC 21:26 → 3SCARD 23:15 → 2SICU 01-21 07:22
PROVIDERS: ADMIT Thoracic Surgery (Cardiothoracic Vascular Surgery); ATTEND Thoracic Surgery (Cardiothoracic Vascular Surgery)
PROC: 4A0305C Measurement of Arterial Flow, Coronary, Open Approach (ICD-10-PCS; 2024-01-21)
PROC: 02L70CK Occlusion of Left Atrial Appendage with Extraluminal Device, Open Approach (ICD-10-PCS; 2024-01-21)
PROC: B24BZZ4 Ultrasonography of Heart with Aorta, Transesophageal (ICD-10-PCS; 2024-01-21)
PROC: 0HB5XZZ Excision of Chest Skin, External Approach (ICD-10-PCS; 2024-01-21)
PROC: 02100Z3 Bypass Coronary Artery, One Artery from Coronary Artery, Open Approach (ICD-10-PCS; principal; 2024-01-21 09:00)
PROC: 06BP4ZZ Excision of Right Saphenous Vein, Percutaneous Endoscopic Approach (ICD-10-PCS; 2024-01-21 09:00)
PROC: 0211093 Bypass Coronary Artery, Two Arteries from Coronary Artery with Autologous Venous Tissue, Open Approach (ICD-10-PCS; 2024-01-21 09:00)
DX: I21.4 Non-ST elevation (NSTEMI) myocardial infarction (principal); J96.01 Acute respiratory failure with hypoxia; I50.22 Chronic systolic (congestive) heart failure; D62 Acute posthemorrhagic anemia; D63.8 Anemia in other chronic diseases classified elsewhere; I95.9 Hypotension, unspecified; I11.0 Hypertensive heart disease with heart failure; M35.3 Polymyalgia rheumatica; M06.9 Rheumatoid arthritis, unspecified; I25.119 Atherosclerotic heart disease of native coronary artery with unspecified angina pectoris; I34.0 Nonrheumatic mitral (valve) insufficiency; I65.22 Occlusion and stenosis of left carotid artery; F32.A Depression, unspecified; M54.50 Low back pain, unspecified; G89.29 Other chronic pain; E78.5 Hyperlipidemia, unspecified; K21.9 Gastro-esophageal reflux disease without esophagitis; H91.90 Unspecified hearing loss, unspecified ear; I25.5 Ischemic cardiomyopathy; R73.03 Prediabetes; R33.9 Retention of urine, unspecified; Z79.01 Long term (current) use of anticoagulants; Z79.891 Long term (current) use of opiate analgesic; R91.1 Solitary pulmonary nodule; E83.42 Hypomagnesemia; K59.00 Constipation, unspecified; Z96.652 Presence of left artificial knee joint; Z79.631 Long term (current) use of antimetabolite agent; Z98.1 Arthrodesis status; Z82.49 Family history of ischemic heart disease and other diseases of the circulatory system; Z86.718 Personal history of other venous thrombosis and embolism; Z88.5 Allergy status to narcotic agent; Z87.891 Personal history of nicotine dependence; Z86.711 Personal history of pulmonary embolism; Z79.899 Other long term (current) drug therapy
CPT/HCPCS: 36415; 71045; 71046; 76937; 80048; 80053; 80061; 80074; 81001; 82330; 82728; 82805; 83036; 83540; 83550; 83735; 84443; 84484; 85025; 85027; 85379; 85610; 85730; 86850; 86900; 86901; 86920; 87070; 88305; 93005; 93306; 93458; 93799; 93880; 93922; 93970; 94002; 94003; 94150; 94640; 94760; 96365; 96366; 99291